=== PATIENT | female | born 1965 | race Caucasian/White ===

== ENCOUNTER 2021-06-21 08:08 | Outpatient (REF) | payer OTHER, SELFPAY ==
--- NOTE | ~2021-06-21 | XR_ITS ---
EXAMINATION: XR CHEST CLINICAL INFORMATION: Bariatric service evaluation. E66.9. COMPARISON: None TECHNIQUE: 2 views of the chest were obtained. FINDINGS: There is a convex opacity at right cardiophrenic angle approximately 3.5 cm in diameter. This may be related to epicardial areolar tissue, pericardial cyst, or a Morgagni hernia. The heart is normal in size. The vascularity is normal. The lungs are clear and there is no airspace consolidation or effusion. The costophrenic sulci are well-defined. There is incidental azygous fissure/lobe right medial apex. The hilar and mediastinal contours and bony structures are unremarkable. XR/XR chest 2V IMPRESSION: 1. Opacity at right cardiophrenic angle 3.5 cm. Differential considerations include epicardial areolar tissue, pericardial cyst, and Morgagni hernia. 2. Otherwise lungs clear.
--- NOTE | 2021-06-21 09:32 | ECG_ITS ---
Test Reason : OBESITY Blood Pressure : / mmHG Vent. Rate : 055 BPM Atrial Rate : 055 BPM P-R Int : 174 ms QRS Dur : 076 ms QT Int : 422 ms P-R-T Axes : 061 024 029 degrees QTc Int : 403 ms Sinus bradycardia Otherwise normal ECG No previous ECGs available Referred By: Sharita Crespo Electronically Signed By:RAIZA BENJAMIN
[2021-06-21 10:23] LABS: MANUAL DIFF FLAG NO
[2021-06-21 10:28] LABS: Basophils Absolute Auto 0.1 X10*3/uL (0.0-0.2); Basophils Percent Auto 0.6 % (0-2); Eosinophils Absolute Auto 0.1 X10*3/uL (0.0-0.4); Eosinophils Percent Auto 0.8 % (0-4); Hematocrit 41.4 % (37-47); Imm Gran Abs Auto 0.05 X10*3/uL (0.00-0.03); Imm Gran Pct Auto 0.6 % (0.0-0.4); Lymphocytes Absolute Auto 1.8 X10*3/uL (1.2-4.9); Lymphocytes Percent Auto 20.2 % (20-40); Mean Corpuscular HGB Conc 33.8 g/dl (31.0-35.0); Mean Corpuscular Hemoglobin 29.9 pg (27.0-33.0); Mean Corpuscular Volume 88.5 fL (80-98); Mean Platelet Volume 10.5 fL (9.4-12.3); Monocytes Absolute Auto 0.7 X10*3/uL (0.1-1.2); Monocytes Percent Auto 7.5 % (2-11); Neutrophils Absolute Auto 6.4 X10*3/uL (2.0-8.3); Neutrophils Percent Auto 70.3 % (45-73); Platelet Count 320 X10*3/uL (160-400); Red Blood Count 4.68 X10*6/uL (4.20-5.50); Red Cell Distribution Width 12.9 % (11.0-16.0); White Blood Count 9.1 X10*3/uL (4.8-10.8)
[2021-06-21 10:40] LABS: Estimated Average Glucose 111 mg/dL; Hemoglobin A1c % 5.5 %
[2021-06-21 10:45] LABS: Alanine Aminotransferase 25 U/L (0-31); Albumin Level 4.3 g/dL (3.5-5.0); Alkaline Phosphatase 93 U/L (39-117); Anion Gap 12 (12-20); Aspartate Amino Transferase 24 U/L (5-31); Bilirubin Total 1.4 mg/dL (0.0-1.0); Blood Urea Nitrogen 11 mg/dL (9-16); C Reactive Protein 0.66 mg/dL (< or = 0.50); Calcium 9.8 mg/dL (8.4-10.2); Carbon Dioxide 24 mmol/L (22-29); Chloride 107 mmol/L (96-108); Cholesterol 167 mg/dL; Estimated Glomerular Filt Rate > 60; Glucose Random 97 mg/dL (60-115); HDL Cholesterol 38 mg/dL; Iron 100 mcg/dL (30-160); LDL Cholesterol Calculated 103 mg/dl; Percent Iron Saturation 31 % (15-50); Potassium 4.2 mmol/L (3.3-5.1); Sodium 139 mmol/L (135-145); Total Iron Binding Capacity 323 mcg/dL (228-428); Total Protein 7.2 g/dL (6.5-8.0); Triglycerides 131 mg/dL; Unsaturated Iron Binding 223 ug/dL
[2021-06-21 10:59] LABS: Ferritin 47 ng/mL (10-250); TSH reflex Free T4 1.17 uIU/mL (0.32-4.0); Vitamin D 25-OH Total 30.4 ng/mL (>30)
[2021-06-21 11:11] LABS: Folate 11.2 ng/mL (> or = 4.0); Vitamin B12 315 pg/mL (200-900)
[2021-06-24 15:47] LABS: Calcium (PTHI) 9.6 mg/dL (8.6-10.4); PTHI 65 pg/mL (14-64)
[2021-06-25 17:21] LABS: Zinc 67 mcg/dL (60-130)
[2021-06-26 16:01] LABS: Vitamin A 38 mcg/dL (38-98)
[2021-06-27 15:01] LABS: Vitamin B1 8 nmol/L (8-30)
== END 2021-06-21 08:09 | disposition home or self-care (01) ==
LOC: HO.XRAY 08:08
PROVIDERS: PCP Nurse Practitioner Family; Referring Provider Nurse Practitioner Family; Visit Provider Physician Assistant
DX: E66.9 Obesity, unspecified (principal); Z68.39 Body mass index [BMI] 39.0-39.9, adult; E78.5 Hyperlipidemia, unspecified; K21.9 Gastro-esophageal reflux disease without esophagitis; I10 Essential (primary) hypertension
CPT/HCPCS: 36415; 71046; 80053; 80061; 82306; 82607; 82728; 82746; 83036; 83525; 83540; 83970; 84425; 84443; 84590; 84630; 85025; 86140; 93005; 99202

== ENCOUNTER → 2021-07-16 08:02 | Outpatient (BNVA) | payer OTHER, SELFPAY | PROVIDERS: PCP Nurse Practitioner Family; Visit Provider Dietitian, Registered | DX: E66.9 Obesity, unspecified (principal); Z68.37 Body mass index [BMI] 37.0-37.9, adult | CPT/HCPCS: 97802 ==

== ENCOUNTER 2021-07-18 08:32 | Outpatient (REF) | payer OTHER, SELFPAY ==
--- NOTE | ~2021-07-18 | US_ITS ---
EXAMINATION: US COMPLETE ABDOMEN WITH LIVER ELASTOGRAPHY CLINICAL INFORMATION: Obesity COMPARISON: None. TECHNIQUE: Real-time imaging of the abdominal viscera. Noninvasive ultrasound liver fibrosis assessment is performed using Ben ElastPQ point quantification shear wave elastography (pSWE) with a C5-2 MHz transducer. Multiple elastography samples are obtained. FINDINGS: PANCREAS: Obscured by overlying bowel gas. ABDOMINAL AORTA: The proximal, middle, and distal aortic segments are normal in caliber. INFERIOR VENA CAVA: Visualized portions are normal. LIVER: There is a heterogeneous increased echogenicity to the liver which may relate to fatty infiltration or hepatocellular disease of other etiology. No focal mass or intrahepatic bile duct dilatation is seen. The right lobe measures 14.3 cm in length. The left lobe measures 9.1 cm in length. Portal flow is hepatopedal Shear wave liver elastography median stiffness is 1.44 m/s (reference: normal median stiffness is 1.3 m/s or less). IQR/median stiffness to assess sampling precision is 0.15 (reference: good quality data set is IQR/median stiffness of 0.15 or less). GALLBLADDER: Normal. The gallbladder is physiologically distended without evidence of stones, sludge, polyps, wall thickening or pericholecystic fluid. COMMON BILE DUCT: Normal in caliber measuring 0.6 cm in diameter. RIGHT KIDNEY: Normal. No hydronephrosis. No renal calculi or focal parenchymal lesions. The kidney measures 10.8 cm in maximum dimension. LEFT KIDNEY: Normal. No hydronephrosis. No renal calculi or focal parenchymal lesions. The kidney measures 11.3 cm in maximum dimension. SPLEEN: Normal. The spleen measures 11.2 cm in maximum dimension. FREE FLUID: None. US/US abdomen comp w elastography IMPRESSION: 1. Heterogeneous increased echogenicity of the liver with diminished sound penetration consistent with fatty infiltration or hepatocellular disease of other etiology. 2. Liver elastography: In the absence of other known clinical signs, measurements rule out compensated advanced chronic liver disease. If there are known clinical signs, further testing may be needed for confirmation. REFERENCE: Society of Radiologists in Ultrasound Liver Stiffness Thresholds (2020): LIVER STIFFNESS THRESHOLDS: *Liver Stiffness equal or less than 1.3 m/s: High probability of being normal. *Liver Stiffness less than 1.7 m/s: In the absence of other known clinical signs, rules out compensated advanced chronic liver disease. *Liver Stiffness 1.7-2.1 m/s: Suggestive of compensated advanced chronic liver disease but need further test for confirmation. *Liver Stiffness over 2.1 m/s: Rules in compensated advanced chronic liver disease. *Liver Stiffness over 2.4 m/s: Suggestive of clinically significant portal hypertension. QUALITY OF DATA SET: *IQR/Median value equal or less than 0.15 implies a quality data set. *IQR/Median value over 0.15 implies a poor quality data set. SIGNIFICANT CHANGE FROM PRIOR EXAM: Significant change if liver stiffness measurement is 10% or greater from prior exam. OTHER CONSIDERATIONS: The stage of liver fibrosis may be overestimated in the setting of acute hepatitis, liver inflammation, elevated liver function tests, hepatic vascular congestion, obstructive cholestasis, non-fasting state, and infiltrative diseases such as amyloidosis and lymphoma. In some patients with NAFLD, the liver stiffness thresholds for compensated advanced chronic liver disease may be lower. In causes other than viral hepatitis and NAFLD, liver stiffness thresholds are not well established.
--- NOTE | ~2021-07-18 | FL_ITS ---
EXAMINATION: XR GI SERIES CLINICAL INFORMATION: Obesity. COMPARISON: None. TECHNIQUE: Routine upper GI air-contrast study was performed in upright and lying position. FINDINGS: Following oral administration of thick barium and effervescent granules, there is normal propagation of bolus from the oral cavity through the pharynx and esophagus and into the stomach without any evidence of obstruction, narrowing or stricture. On placing patient supine and prone lying, the course, caliber and peristalsis of stomach are normal. There is mild gastroesophageal reflux but no hiatal hernia. The mucosal pattern of the stomach and the duodenum is normal. FLUOROSCOPY TIME: 1.4 minutes. DOSE AREA PRODUCT: 33.471 uGy-m2 (microgray-meter squared). FL/FL upper GI series IMPRESSION: Minimal gastroesophageal reflux without hiatal hernia. Otherwise, the rest of the upper GI air-contrast study is unremarkable.
== END 2021-07-18 08:33 | disposition home or self-care (01) ==
LOC: HO.US 08:32
PROVIDERS: Visit Provider Surgery
DX: Z01.818 Encounter for other preprocedural examination (principal); E66.01 Morbid (severe) obesity due to excess calories; K21.9 Gastro-esophageal reflux disease without esophagitis; I10 Essential (primary) hypertension; E78.5 Hyperlipidemia, unspecified
CPT/HCPCS: 74240; 76705; 76981

== ENCOUNTER 2021-07-22 11:13 | Outpatient (REF) | payer OTHER, SELFPAY ==
[2021-07-22 12:21] LABS: Anion Gap 14 (12-20); Blood Urea Nitrogen 14 mg/dL (9-16); Calcium 9.8 mg/dL (8.4-10.2); Carbon Dioxide 25 mmol/L (22-29); Chloride 104 mmol/L (96-108); Estimated Glomerular Filt Rate 56; Glucose Random 91 mg/dL (60-115); Potassium 4.3 mmol/L (3.3-5.1); Sodium 139 mmol/L (135-145)
== END 2021-07-22 11:14 | disposition home or self-care (01) ==
LOC: HO.LAB 11:13
PROVIDERS: PCP Nurse Practitioner Family; Visit Provider Physician Assistant
DX: J98.4 Other disorders of lung (principal)
CPT/HCPCS: 36415; 80048

== ENCOUNTER 2021-07-30 09:42 | Outpatient (REF) | payer OTHER, SELFPAY ==
--- NOTE | ~2021-07-30 | CT_ITS ---
EXAMINATION: CT CHEST WITH CONTRAST CLINICAL INFORMATION: The disorders of lung. COMPARISON: Chest x-ray 06/21/2021. TECHNIQUE: Multidetector volumetric CT imaging of the chest was obtained after the administration of 85 mL of Omnipaque 350 intravenous contrast without immediate adverse reactions. Axial MIP volume rendering provided. Sagittal and coronal reformatted images were obtained. This CT examination was performed using dose optimization techniques as appropriate, variously including the following: *Automated exposure control *Adjustment of mA and/or kV according to patient size (this includes techniques or standardized protocols for targeted exams where dose is matched to indication/reason for exam; i.e. extremities or head) *Use of iterative reconstruction technique DLP: 164 mGy-cm. FINDINGS: CRUSHER AND BINDER OPERATOR: The lungs are well expanded and clear. LUNGS: The lungs are well expanded and clear of acute pneumonic process. There is a 2 mm calcified nodule right upper lobe, axial image 87/4. No additional nodules visualized. Minimal dependent bibasilar atelectasis. MEDIASTINUM: The thyroid lobes are symmetrical and normal. The central trachea and the bronchi are widely patent. Heart size and the great vessels are normal caliber. There is no pericardial effusion. No abnormal-sized mediastinal mass or lymphadenopathy seen. There is moderate right epicardial fat. PLEURA: There is no pleural effusion. No pleural mass or thickening. AXILLA: Small shotty lymph nodes are seen in the axilla. The chest wall appears unremarkable. UPPER ABDOMEN: The liver is diffusely attenuated with preservation of left hepatic lobe. No focal lesion or intrahepatic ductal dilatation. Visualized spleen, pancreas and gallbladder are unremarkable. Bilateral adrenal glands are symmetrical and normal. OSSEOUS STRUCTURES: No lytic or sclerotic process seen. CT/CT chest w con IMPRESSION: A 2 mm calcified nodule or granuloma right upper lobe. The rest of lungs are clear. No abnormal mediastinal mass or lymphadenopathy. Moderate right epicardial fat concordant with chest x-ray findings from 06/21/2021.
[2021-07-30] MEDS: iohexoL 350 MG/ML 100 ML INFUS..BTL 85 ML IV (10:50)
== END 2021-07-30 09:43 | disposition home or self-care (01) ==
LOC: HO.CT 09:42
PROVIDERS: PCP Nurse Practitioner Family; Visit Provider Physician Assistant
DX: J98.4 Other disorders of lung (principal)
CPT/HCPCS: 71260; Q9967

== ENCOUNTER 2021-08-01 09:40 | Outpatient (REF) | payer OTHER, SELFPAY ==
[2021-08-02 13:27] LABS: H Pylori Breath Test NOT DETECTED (NOT DETECTED)
== END 2021-08-01 09:41 | disposition home or self-care (01) ==
LOC: HO.LNP 09:40
PROVIDERS: PCP Nurse Practitioner Family; Visit Provider Physician Assistant
DX: E66.9 Obesity, unspecified (principal); E78.5 Hyperlipidemia, unspecified; I10 Essential (primary) hypertension; K21.9 Gastro-esophageal reflux disease without esophagitis; Z11.0 Encounter for screening for intestinal infectious diseases
CPT/HCPCS: 83013; 99211

== ENCOUNTER 2021-08-06 10:41 | Outpatient (REF) | payer OTHER, SELFPAY ==
[2021-08-06 11:51] LABS: MANUAL DIFF FLAG NO
[2021-08-06 12:01] LABS: Estimated Average Glucose 105 mg/dL; Hemoglobin A1c % 5.3 %
[2021-08-06 12:03] LABS: Basophils Percent Auto 0.5 % (0-2); Eosinophils Percent Auto 0.6 % (0-4); Hematocrit 43.1 % (37-47); Hemoglobin 14.6 g/dl (12.0-16.0); Imm Gran Abs Auto 0.01 X10*3/uL (0.00-0.03); Imm Gran Pct Auto 0.2 % (0.0-0.4); Lymphocytes Absolute Auto 1.9 X10*3/uL (1.2-4.9); Lymphocytes Percent Auto 29.1 % (20-40); Mean Corpuscular HGB Conc 33.9 g/dl (31.0-35.0); Mean Corpuscular Hemoglobin 29.9 pg (27.0-33.0); Mean Corpuscular Volume 88.1 fL (80-98); Monocytes Absolute Auto 0.6 X10*3/uL (0.1-1.2); Monocytes Percent Auto 8.5 % (2-11); Neutrophils Percent Auto 61.1 % (45-73); Platelet Count 262 X10*3/uL (160-400); Red Blood Count 4.89 X10*6/uL (4.20-5.50); White Blood Count 6.5 X10*3/uL (4.8-10.8)
[2021-08-06 12:07] LABS: Prothrombin Time 11.5 SEC (9.9-13.0)
[2021-08-06 12:10] LABS: Partial Thromboplastin Time 36.6 SEC (24.1-38.0)
[2021-08-06 12:14] LABS: Alanine Aminotransferase 26 U/L (0-31); Albumin Level 4.4 g/dL (3.5-5.0); Alkaline Phosphatase 73 U/L (39-117); Anion Gap 15 (12-20); Aspartate Amino Transferase 29 U/L (5-31); Blood Urea Nitrogen 12 mg/dL (9-16); C Reactive Protein 0.62 mg/dL (< or = 0.50); Calcium 9.9 mg/dL (8.4-10.2); Carbon Dioxide 23 mmol/L (22-29); Chloride 107 mmol/L (96-108); Cholesterol 140 mg/dL; Estimated Glomerular Filt Rate > 60; Glucose Random 90 mg/dL (60-115); HDL Cholesterol 43 mg/dL; Iron 61 mcg/dL (30-160); LDL Cholesterol Calculated 85 mg/dl; Percent Iron Saturation 19 % (15-50); Potassium 4.7 mmol/L (3.3-5.1); Sodium 140 mmol/L (135-145); Total Iron Binding Capacity 313 mcg/dL (228-428); Total Protein 7.2 g/dL (6.5-8.0); Triglycerides 60 mg/dL; Unsaturated Iron Binding 252 ug/dL
[2021-08-06 12:37] LABS: Vitamin B12 472 pg/mL (200-900)
[2021-08-06 12:38] LABS: Ferritin 68 ng/mL (10-250); TSH reflex Free T4 1.96 uIU/mL (0.32-4.0); Vitamin D 25-OH Total 34.4 ng/mL (>30)
[2021-08-07 18:22] LABS: Calcium (PTHI) 9.8 mg/dL (8.6-10.4); Insulin Level Total 4.2 uIU/mL; PTHI 60 pg/mL (14-64)
[2021-08-09 06:21] LABS: Zinc 80 mcg/dL (60-130)
[2021-08-11 00:42] LABS: Vitamin A 34 mcg/dL (38-98)
[2021-08-11 10:31] LABS: Vitamin B1 <6 nmol/L (8-30)
== END 2021-08-06 10:42 | disposition home or self-care (01) ==
LOC: HO.LAB 10:41
PROVIDERS: Visit Provider Physician Assistant Surgical
DX: E66.9 Obesity, unspecified (principal)
CPT/HCPCS: 36415; 80053; 80061; 82306; 82607; 82728; 83036; 83525; 83540; 83970; 84425; 84443; 84590; 84630; 85025; 85610; 85730; 86140; 86850; 86900; 86901

== ENCOUNTER → 2021-08-09 08:14 | Outpatient (BNVA) | payer OTHER, SELFPAY | PROVIDERS: PCP Nurse Practitioner Family; Visit Provider Surgery ==

== ENCOUNTER 2021-08-13 07:30 | Inpatient (IN) | payer OTHER, SELFPAY ==
[2021-08-08 10:40] VITALS: BMI 36.3
--- NOTE | 2021-08-12 09:46 | HO.ANESPROP2 ---
Documented by User: Chrissy Hannon NP 08/12/21 09:50 HPI - Anesthesia Eval Consult details Narrative: 56yo F for Gastrectomy Sleeve, EGD, Poss Diaphragmatic Hernia, Poss Ventral Hernia, Poss open PMFSH Active Problems Active Problems: All Active Problems (Updated 08/09/21 @ 13:51 by Saleem Farah MD) Nausea (Acute) BMI over 35 (Acute) Obesity (Acute) Hypertension (Acute) Hyperlipidemia (Acute) GERD (gastroesophageal reflux disease) (Acute) Lung density on x-ray (Acute) Adjustment disorder, unspecified (Acute) Pericardial cyst along right cardiophrenic angle (Acute) Past Medical History Medical History Adjustment disorder, unspecified GERD (gastroesophageal reflux disease) Hyperlipidemia Hypertension Obesity Pericardial cyst along right cardiophrenic angle Pulmonary nodule Family History Family History Mother Afib Father No problems noted. Brother No problems noted. Brother No problems noted. Brother No problems noted. Son No problems noted. Daughter No problems noted. 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 If so, by whom?: No Are you DNR?: No Advance Directives: No Advance Directives Information Provided: No Advance Directives on File: No Recently lost weight without trying: No Patient : No FDLMP: 08/07/2021 : No Poor oral hygiene: No Meds Allergies Allergy/AdvReac Type Severity Reaction Status Date / Time No Known Allergies Allergy Verified 08/09/21 13:38 Home Medications Medication Instructions Recorded Confirmed Last Taken Type estradiol 0.05 mg/24 hr semiweekly 1 patch TRANSDERMAL 2XW 06/21/21 08/09/21 Unknown History transdermal patch losartan 25 mg tablet 25 mg PO DAILY 06/21/21 08/09/21 Unknown History omeprazole 40 mg capsule,delayed 40 mg PO DAILY PRN 06/21/21 08/09/21 Unknown History release pravastatin 20 mg tablet 20 mg PO DAILY 06/21/21 08/09/21 Unknown History progesterone micronized 100 mg 100 mg PO BEDTIME 06/21/21 08/09/21 Unknown History capsule Exam Exam Date and Time: August 12, 2021 0946 Height,Weight and Vital Signs: Height 5 ft 4 in Weight 96.162 kg Pertinent Lab Results Pertinent Lab Results: Laboratory Tests 08/06/21 11:00 Blood Type B Positive Antibody Screen NEGATIVE Laboratory Tests 08/06/21 08/06/21 11:00 11:00 WBC 6.5 Hgb 14.6 Hct 43.1 Plt Count 262 Sodium 140 Potassium 4.7 Chloride 107 Carbon Dioxide 23 BUN 12 Creatinine 0.95 Narrative Narrative: EKG 05/2021 Vent. Rate : 055 BPM ? ? Atrial Rate : 055 BPM ?? P-R Int : 174 ms? QRS Dur : 076 ms ? ? QT Int : 422 ms ? ? ? P-R-T Axes : 061 024 029 degrees ?? QTc Int : 403 ms ? Sinus bradycardia Otherwise normal ECG No previous ECGs available CT chest w con 07/2021 IMPRESSION: A 2 mm calcified nodule or granuloma right upper lobe. The rest of lungs are clear. ? No abnormal mediastinal mass or lymphadenopathy. ? Moderate right epicardial fat concordant with chest x-ray findings from 06/21/2021. Assessment and Plan Assessment Anesthesia Assessment: Chart Reviewed Documented by User: Mar Spencer MD 08/13/21 10:02 [facility] Past Medical History Medical History Adjustment disorder, unspecified GERD (gastroesophageal reflux disease) Hyperlipidemia Hypertension Obesity Pericardial cyst along right cardiophrenic angle Pulmonary nodule Family History Family History Mother Afib Father No problems noted. Brother No problems noted. Brother No problems noted. Brother No problems noted. Son No problems noted. Daughter No problems noted. 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 If so, by whom?: No Are you DNR?: No Advance Directives: No Advance Directives Information Provided: No Advance Directives on File: No Recently lost weight without trying: No Patient : No FDLMP: 08/07/2021 : No Poor oral hygiene: No Meds Allergies Allergy/AdvReac Type Severity Reaction Status Date / Time No Known Allergies Allergy Verified 08/09/21 13:38 Home Medications Medication Instructions Recorded Confirmed Last Taken Type estradiol 0.05 mg/24 hr semiweekly 1 patch TRANSDERMAL 2XW 06/21/21 08/09/21 Unknown History transdermal patch losartan 25 mg tablet 25 mg PO DAILY 06/21/21 08/09/21 Unknown History omeprazole 40 mg capsule,delayed 40 mg PO DAILY PRN 06/21/21 08/09/21 Unknown History release pravastatin 20 mg tablet 20 mg PO DAILY 06/21/21 08/09/21 Unknown History progesterone micronized 100 mg 100 mg PO BEDTIME 06/21/21 08/09/21 Unknown History capsule Exam Height,Weight and Vital Signs: Height 5 ft 4 in Weight 96.162 kg Vital Signs Temp Pulse Resp BP Pulse Ox 08/13/21 08:39 97.5 F 60 16 139/67 98 Pertinent Lab Results Pertinent Lab Results: Laboratory Tests 08/06/21 11:00 Blood Type B Positive Antibody Screen NEGATIVE Laboratory Tests 08/06/21 08/06/21 11:00 11:00 WBC 6.5 Hgb 14.6 Hct 43.1 Plt Count 262 Sodium 140 Potassium 4.7 Chloride 107 Carbon Dioxide 23 BUN 12 Creatinine 0.95 Lab Results 08/06/21 08/13/21 Range/Units 11:00 08:29 COVID-19 ([facility]) Negative (Negative) COVID-19 Clin Com See Note Blood Type B Positive Antibody Screen NEGATIVE Airway Mallampati Class: II TM Dist: >3cm Neck ROM: Full Loose/Missing/Broken Teeth: No Heart: RRR Lungs: CTAB Assessment and Plan Assessment Anesthesia Assessment: Anesthesia Plan Discussed Final Anesthetic Review Family History of Problems with Anesthesia: No History of Problems with Anesthesia: No NPO: Yes ASA Class: III Final Preanesthetic Review: No Changes in Pt Med Stat, Meds/Allgs Chart Reviewed, Consent Obtained/Reviewed and Anes Risks/Benef Reviewed Patient Risk: Intermediate Procedure Risk: Intermediate Assessment/Block/Sedation in SS: Assess/Block/Sedation-SS Anesthetic Plan Anesthetic Plan: GA Disposition: Standard PACU
[2021-08-13] VITALS (9 sets, daily range): BP systolic 127–151; BP diastolic 67–84; PULSE 51–74; RESP 14–17; TEMP 36.1–36.4; O2SAT 94–99
--- NOTE | ~2021-08-13 | XR_ITS ---
EXAMINATION: XR CHEST CLINICAL INFORMATION: Decreased breath sounds on the left COMPARISON: None TECHNIQUE: Frontal view of the chest was obtained. FINDINGS: The lungs are well-expanded with patchy opacity left lingula likely infiltrate. Rest of lungs are clear. The heart size and pulmonary vascularity is normal. No gross bony abnormality. XR/XR chest 1V IMPRESSION: Left lingular infiltrate.
--- NOTE | 2021-08-13 07:29 | P.HPSUR_ITS ---
Pre-Procedural Eval Section A Date of Service: 08/13/21 The patient is an INPATIENT: Yes The History & Physical has been completed within 30 days and I have reviewed it.: No Section B Chief Complaint: obesity Relevant Family History (Specify if Yes): No Relevant Social History: None Present Medications: see Short Stay Collaborative assessment Medical History: No relevant PMH History of Previous Operations: No relevant previous surgery Allergies: Allergies Allergy/AdvReac Type Severity Reaction Status Date / Time No Known Allergies Allergy Verified 08/09/21 13:38 Review of Systems Sugical H&P ROS: Negative: Constitution, Cardiovascular, Respiratory, Neurological, Psychiatric, Hem-Onc, Allergic/Immunologic, Gastrointestinal, Genitourinary, Musculoskeletal, Integumentary, Endocrine and Eyes/Ears/Nose/Thr oat Exam Surgical H&P Exam: Normal: HEENT, Normal: Heart, Normal: Lungs, Normal: Extremities, Normal: Abdomen, Normal: Skin and Normal: Neurological Plan Diagnosis/Plan: Unchanged I have reviewed the history and physical and performed a pertinent physical examination on my patient. No changes have occurred unless specified.
[2021-08-13 09:01] LABS: COVID-19 Test Negative (Negative); IDNOW Serial# 08D9AD1C
[2021-08-13] MEDS: Lactated Ringers 1,000 ML 100 ML IVCONT ×3 (09:04→22:59)
[2021-08-13] MEDS: Lactated Ringers 1,000 ML 999 ML IV (09:04)
--- NOTE | 2021-08-13 13:16 | PM.OP ---
Brief Operative Note Date of Service: 08/13/21 Pre-op diagnosis: Severe obesity and comorbidities (see below) Post-op diagnosis: same (& diaphragmatic hernia) Procedure: INITIAL PATIENT BMI ON PRESENTATION AT OUR OFFICE: 39.7 kg/m2 LAST BMI BEFORE SURGERY: 35.3 kg/m2 COMORBIDITIES: GERD, hypertension, hyperlipidemia, liver steatosis The patient participated in an intensive weekly lifestyle ?intervention and exercise program during which the patient ?has lost between the initial office visit and the last preoperative visit 25.4 lbs, or 10.7% of initial actual body weight. The patient met the BMI-criteria for bariatric surgery based on the BMI on initial presentation. The patient should not be penalized for achieving such weight loss because ?it is not sustainable long-term without surgical intervention and it was achieved in preparation for bariatric surgery ?under my direction and based on my published research ([email or web address]) ?that a 10% preoperative weight loss improves long-term weight loss after surgery and reduces perioperative complications.? Insurance carriers such as [facility] have endorsed my recommendations ?and have included in their policies criteria to include a 10% preoperative weight loss requirement. PROCEDURE: Esophago-gastroscopy, laparoscopic repair of incarcerated diaphragmatic hernia, laparoscopic sleeve gastrectomy and laparoscopic gastropexy INDICATIONS: This is a 56 year-old female who was electively scheduled for laparoscopic, possibly open sleeve gastrectomy. The risks and complications of the procedure were discussed with the patient in advance, particularly the possibility of ; pulmonary embolism; staple line leak; bleeding; GERD; cardiac, pulmonary, or renal complications; as well as long-term problems such as insufficient weight loss, vitamin deficiency, strictures, or ulcers. The patient understood all the risks, and was in agreement to proceed with surgery. DESCRIPTION OF PROCEDURE: After informed consent was obtained from the patient, the patient was given preoperative antibiotics, and was transferred to the operating room. After successful induction of general anesthesia, pneumatic compressive devices were placed on both lower extremities. An upper endoscopy was performed next. The oropharynx and esophagus appeared to be within normal limits. There was a diaphragmatic hernia present of moderate size consistent with the findings of the preoperative upper GI. The stomach was entered. Then after all fluid and air were suctioned and the stomach was fully decompressed, the scope was withdrawn and secured in the mid esophagus. The patient was then prepped and draped in the usual sterile manner, and abdominal access was established at the right upper quadrant with the Karely technique. A 12 mm blunt port was inserted, and the abdomen was insufflated with CO2 to a pressure of 15 mmHg. Under direct visualization, additional ports were placed, specifically two 5 mm Versi-step ports to the left upper quadrant, and a 5 mm Versi-Step port to the right upper quadrant. 1% lidocaine plain was used to infiltrate all port sites as well as all fascia defects. Using the EndoClose suture passer device, I placed a #1 Polysorb tie across the falciform ligament in order to retract it up against the abdominal wall and prevent injury of the ligament with our instruments during the procedure. Following that, the patient was placed in a steep reverse Trendelenburg position. An additional 5 mm port was placed to the right flank for the Mediflex retractor that was used to retract the left lobe of the liver. The gastro-esophageal fat pad was opened with the ultrasonic device (Thunderbeat, Olympus) and the anterior esophagus and hiatus were exposed. The angle of His was opened with the ultrasonic device the fundus of the stomach from any diaphragmatic and splenic attachments. I then opened the gastrocolic ligament between the transverse colon and the greater curvature of the stomach with the ultrasonic device to enter the lesser sac and facilitate the ligation of the short gastric vessels. I started at a mid-point along the greater curvature and using the Thunderbeat, all short gastric vessels were divided all the way to the angle of His until the left maritza was completely dissected at its entirety. I then divided the gastro-colic ligament distally to a distance of about 3-4 cm proximal to the esophagus. There was an obvious significant-sized hiatal hernia. I continued dissecting along the hiatus toward the left maritza and the angle of His. I fully mobilized the fat pad that was incarcerated in the hernia. I then continued by dissecting even further into the posterior retro-esophageal space all the way to the angle of His. I continued to mobilize the esophagus into the mediastinum circumferentially. Both vagal nerves were seen and preserved. At that point, I was able to have at least 3 to 5 cm of esophagus into the abdomen.? After I completely mobilized the esophagus from both the left and right maritza and I had a good mobilization of the esophagus circumferentially, I closed the hernia defect with three interrupted #0 Surgidac suture using the Endo Stitch device, two of which were placed posterior and one anterior to the esophagus. ? The stomach was then divided transversely with one Endo GILBERT-45 purple, one GILBERT-45 orange load and four GILBERT-60 articulating orange loads using the AEON stapler and loads. Every effort was made that the gastric sleeve had a tubular shape and an even caliber throughout. Once the sleeve resection was completed, the staple line of the gastric sleeve was reinforced with Hemoclips. The resected stomach was retrieved without difficulty from the Karely port. A gastropexy was then performed in order to prevent postoperative GERD and partial gastric volvulus. Several interrupted 2.0 Surgidac sutures were placed between the sleeve's staple line and the previously divided greater omentum and gastro-colic ligament using the Endo-Stitch device. ?An upper endoscopy was performed. There was no narrowing at the GE junction. The scope was easily advanced all the way to the pylorus which was clearly visualized. There was no narrowing anywhere and the sleeve's caliber was even throughout. The sleeve's staple line was inspected and there was no evidence of ischemia, bleeding or dehiscence. At that point the gastroscope was withdrawn from the patient?s mouth while we were decompressing the bowel and the stomach from any remaining air. I looked into the lesser sac to see how the sleeve was situating and it was situating well. There was no bleeding from the staple line, spleen, or short gastric vessels. The Mediflex retractor was removed, and the undersurface of the liver was inspected and there was no bleeding. The patient was placed in supine position. I closed the fascial defect of the 12 mm port site with a figure of eight #1 Polysorb suture. Then 100 cc 0.25 % Marcaine plain with 10 mg of Dexamethasone were used to infiltrate the fascial closure as well as all skin incisions. At this point, the abdomen was deflated, all ports were removed under direct vision, and no bleeding was noted from any of the port sites. The skin incisions were irrigated with saline and were closed with 4-0 absorbable monofilament sutures. Steri-Strips and OpSites were used to cover all incisions. The patient was extubated and was transferred in stable condition to the recovery room for further care. I was present and performed all silva parts of the procedure. Ms. Crespo was the cutting table operator first. There were no residents to assist with this case. Presley Farah MD, PhD, FACS Surgeon: Saleem Farah MD Anesthesia: GETA, local and other (TAP block) Was an Retail Assistant Store Manager used for this Procedure?: Yes Retail Assistant Store Manager: Beau Penn Estimated blood loss (mL): 10 IV fluids (mL): 2,000 Urine output (mL): 0 (No Romo to record) Pathology: other (Stomach) Condition: stable Disposition: PACU
--- NOTE | 2021-08-13 13:21 | PM.PNGS ---
Subjective Subjective Date of Service: 08/13/21 Interval history: Patient has mild incisional pain, but was able to ambulate and use the incentive spirometer. She is tolerating phase 1 bariatric diet Physical Exam Vital Signs: Vital Signs: Last Vital Signs Temp 97.5 F 08/13/21 13:13 Pulse 74 08/13/21 13:13 Resp 16 08/13/21 13:13 BP 138/74 08/13/21 13:13 Pulse Ox 98 08/13/21 08:39 Body Mass Index 36.3 GI: Inspection: Yes normal to inspection and Yes incision (clean, dry and intact) Extrem: Right lower extremity: normal to inspection (no calf tenderness) Left lower extremity: normal to inspection (no calf tenderness) Progress Note: A&P Assessment and plan (1) S/P laparoscopic sleeve gastrectomy: Status: Acute Assessment and Plan: s/p laparoscopic sleeve gastrectomy, repair of diaphragmatic hernia, and gastropexy Doing well Check am labs. If OK, will discharge home? (2) Paraesophageal hiatal hernia: Status: Acute (3) History of repair of hiatal hernia: Status: Acute (4) Obesity: Status: Acute (5) BMI over 35: Status: Acute (6) GERD (gastroesophageal reflux disease): Status: Acute (7) Steatosis, liver: Status: Acute (8) Hyperlipidemia: Status: Acute (9) Hypertension: Status: Acute Fall Risk Details Current Medications: Current Medications Fentanyl (Fentanyl Citrate/Pf 100 Mcg/2 Ml Vial) 25 mcg IVPUSH Q5M PRN; Protocol PRN Reason: Pain, Moderate (Pain Scale 4-6 Hydromorphone HCl (Hydromorphone Hcl 0.5 Mg/0.5 Ml Syringe) 0.25 mg IVPUSH Q5M PRN; Protocol PRN Reason: Pain, Severe (Pain Scale 7-10) Lactated Ringer's (Lr) 1,000 mls @ 100 mls/hr IVCONT .Q10H [facility] Last Admin: 08/13/21 09:04 Dose: 100 mls/hr Documented by: Promethazine HCl 6.25 mg/ (Sodium Chloride) 50.25 mls @ 201 mls/hr IV ONCE PRN PRN Reason: Nausea and Vomiting Ondansetron HCl (Ondansetron Hcl 4 Mg/2 Ml Vial) 4 mg IVPUSH ONCE PRN PRN Reason: Nausea and Vomiting Time Spent With Patient Time: Total time spent is greater than 50% in coordination of care (as documented) at patient's floor/unit and/or counseling patient: Quality Stroke Does the patient have a stroke diagnosis?: No VTE Prior VTE?: No VTE Risk Level:: Surgical - moderate VTE Device Contraindication: N/A - Device Ordered VTE Drug Contraindication: Treatment Not Indicated
--- NOTE | 2021-08-13 13:24 | PM.DS ---
DS: Providers Provider Date of Service: 08/14/21 Date of admission: 08/13/21 07:30 Primary care physician: Unknown Physician DS: Summary Hospital Course Hospital Course: ADMITTING DIAGNOSIS: morbid obesity, htn, hyperlipidemia, GERD ? DISCHARGE DIAGNOSIS: same, s/p laparoscopic sleeve gastrectomy and repair diaphragmatic hernia ? PAST SURGICAL HISTORY: None ? PROCEDURE: upper endoscopy, laparoscopic sleeve gastrectomy and repair of diaphragmatic hernia hernia ? DISCHARGE SUMMARY: ? History of Present Illness: ? The patient is a?56 year-old woman with a BMI of?39.7 kg/m2 and associated co-morbidities as described above. The patient had extensive work-up,lost?25.4 lbs preoperatively and was electively scheduled for laparoscopic, possible open sleeve gastrectomy and gastropexy. Risks and complications of the surgery were discussed with the patient in advance, particularly the possibility of , pulmonary embolism, anastomotic leak, bleeding, bowel injury, GERD, cardiac, renal or pulmonary complications. The patient understood all the risks and was in agreement with the surgical plan. ? Hospital Course: ? The patient underwent an uneventful laparoscopic sleeve gastrectomy with gastropexy and repair of diaphragmatic hernia on the day of admission. Postoperatively, the patient was transferred to the surgical floor. The patient received IV Acetaminophen and IV dilaudid for pain control. Patient was started on bariatric phase 1 diet POD #0. On postoperative day one, the patient was feeling well without nausea, vomiting, fevers, or tachycardia. The patient had some mild incisional pain and the abdomen was soft. ? On the morning of postoperative day one, the patient was continued on 1 ounce of water or ice every half hour. During the day, the patient did fairly well, having some incisional pain, but able to ambulate adequately and to tolerate liquids well. ? Since the patient is doing well, we decided that the patient was ready to be discharged. The patient was given instructions to follow-up with me next week and to call my office for any fever over 101, persistent abdominal pain, nausea, vomiting, GERD, symptoms of DVT such as calf tenderness, or leg swelling, or pulmonary embolism such as chest pain or shortness of breath. The patient was also instructed to drink 40-60 ounces of liquids per day using the 1-ounce cups. The patient had been given prescriptions for Tylenol for pain, Zofran prn for nausea, and pantoprazole and carafate previously. The patient was encouraged to ambulate and use the incentive spirometer. The patient was allowed to shower, but no baths, and encouraged to stay active at home. All of these instructions were given to the patient personally. All questions were answered and the patient understood all instructions, the instructions were also given to the patient in print. Status at Discharge Functional status at discharge: independent ambulation Time Spent with Patient Time attestation: Total time spent providing and/or coordinating discharge services: Discharge coordination time: Less than 30 minutes Quality: Stroke Does the patient have a stroke diagnosis?: No Reason for No Anti-thrombotic by Day Two: Not indicated Reason for No Statin at DC: N/A - Med Ordered Physical Exam Vital Signs: Vital Signs: Last Vital Signs Temp 97.5 F 08/13/21 13:13 Pulse 67 08/13/21 13:18 Resp 17 08/13/21 13:18 BP 138/78 08/13/21 13:18 Pulse Ox 98 08/13/21 13:18 Body Mass Index 36.3 DS: Data Data Completed and Pending Pending studies at discharge: Pending at discharge 08/13/21 12:37 Surgical [PTH] Routine Labs on day of discharge: Laboratory Results - last 24 hr 08/13/21 08:29 COVID-19 ([facility]) Negative COVID-19 Clin Com See Note Discharge Plan Discharge Anticipated Discharge Date/Time: 08/14/21 10:16 Patient Disposition: Home, Self-Care Discharge Diagnosis: s/p sleeve gastrectomy with hiatal hernia repair Referrals: Physician,Unknown [Primary Care Provider] - 1 Week Discharge Medications: Continued losartan 25 mg tablet 25 mg PO DAILY RF: 0 pravastatin 20 mg tablet 20 mg PO DAILY RF: 0 pantoprazole 40 mg tablet,delayed release (DR/EC) 40 mg PO DAILY Qty: 30 RF: 2 sucralfate 100 mg/mL suspension 10 ml PO BID Qty: 400 RF: 2 ondansetron HCl [Zofran] 4 mg tablet 4 mg PO Q12H Qty: 20 RF: 0 Held progesterone micronized 100 mg capsule 100 mg PO BEDTIME RF: 0 Hold Instructions: discuss with Dr Farah prior to restarting estradiol 0.05 mg/24 hr patch semiweekly 1 patch transdermal 2XW RF: 0 Hold Instructions: dicuss with Dr Farah prior to restarting Discontinued omeprazole 40 mg capsule,delayed release(DR/EC) 40 mg PO DAILY PRN (Reason: Gastric Reflux) RF: 0 polyethylene glycol 3350 [Miralax] 17 gram powder in packet 17 g PO DAILY Qty: 14 RF: 0 Discharge Orders: Discharge Order (Routine); Ordered 08/14/21 Ordered By: Beau Penn Diet: other Activity on Discharge: No heavy lifting Stand Alone Forms: Patient Portal Discharge page Care Plan Goals: weight loss Health Concerns: obesity Plan of Treatment: No tub baths, sex or returning to work until discussed at first post op appointment. No exercise, alcohol, tobacco or illegal drug use. Continue to use incentive spirometer hourly while awake. Walk in home for 5- 10 minutes every 2 hours during the first week. Continue phase 3 diet until first post op appointment. Follow all instructions in the bariatric handbook and call with any questions.Discharge Instructions 1. Please call your doctor or come back to the emergency room should any new symptoms arise. 2. You will receive a courtesy call from [facility] 24-48 hours after discharge. 3. Activity: abstain from alcohol, practice limited stair climbing, no bending, no driving, no exercise, no illicit substances, no lifting, no sex, no tub bath, no work. 4. Diet: continue as discussed with Dr. Farah. 5. Dressing Change/Wound Care: Your incision is covered by surgical glue. If the area is tender, you may apply an ice pack for short intervals (no more than 20 minutes on, followed by at least 20 minutes off). Do not apply heat. Do not use creams, lotions, or topical antibiotics unless instructed to do so by your surgeon. These can cause infection or allergic reaction. 6. Call your doctor if: - Your temperature exceeds 101.5 F - You experience excessive pain or swelling - You have an unexpected reaction to medication - You have excessive bleeding - You experience continued vomiting/nausea - Your incision begins to separate - Your incision shows signs of infection such as increased redness, swelling, excessive pain, heat, or drainage (light blood or clear fluid is normal) 7. General instructions: No lifting greater than 5 lbs for the next 4 weeks. No driving within 24 hours of taking narcotic pain medications. If you do not move your bowels in the next 2 days, please take milk of magnesia over the counter. Please follow the post op diet and do not advance your diet until you are seen in the office in about 2 weeks. Please walk around your home every hour or two to prevent blood clots from forming in your legs. You do not need to wake from sleeping to walk. Please sleep in a bed or couch to prevent kinking at the hips and knees. Please take your incentive spirometer (your lung boiler shop supervisor) home with you and use it for the next few days to prevent pneumonias. You may shower, no hot tubs, baths or swimming pools. Please call the office with any questions or concerns such as increasing abdominal pain, fever, chills, shortness of breath, chest pain, leg pain or swelling, or redness or drainage from your incisions. Please stay on stage 3 diet which includes sugar free clear liquids such as ice pops and jello and broth and crystal light. Avoid all carbonation. Please drink 3 protein shakes with at least 25-30 grams of protein daily or 3 of the Celebrate 4:1 shakes which can be purchased in our office. The Celebrate shakes have all of the bariatric vitamins you need if you consume these shakes. If you are drinking other protein shakes, you will need to purchase the Celebrate multivitamins and calcium that we provide in the office (they will provide all the vitamins you need). Please make sure you are consuming at least 40-60 ounces of water in addition to your 3 protein shakes daily. Do not hesitate to contact the office with any questions at . The patient's medical history has been reviewed and they are considered low risk for post op DVT and therefore DVT prophylaxis is not considered necessary. Travel after surgery was reviewed. The patient has not disclosed any travel plans during the first 30 days after surgery and they have been advised that within the first 30 days after surgery any bus, plane, train or car travel over 2 hours in duration is contraindicated due to the possibility of developing blood clots from immobility. Any travel, needs to include periods of ambulation of 10 minutes in duration every 2 hours.? The patient was instructed to discuss any plans for travel during this period with their bariatric surgeon. Assessment: stable s/p sleeve gastrectomy with hiatal hernia repair
[2021-08-13] MEDS: Famotidine/PF 20 MG/2 ML VIAL IVPUSH ×2 (13:50→20:36)
[2021-08-13 14:48] LABS: Hematocrit 41.8 % (37-47); Hemoglobin 14.2 g/dl (12.0-16.0)
[2021-08-13 15:00] LABS: Anion Gap 19 (12-20); Blood Urea Nitrogen 8 mg/dL (9-16); Calcium 8.6 mg/dL (8.4-10.2); Carbon Dioxide 17 mmol/L (22-29); Chloride 106 mmol/L (96-108); Creatinine Clr Calc Pharmacy 90.4; Estimated Glomerular Filt Rate > 60; Glucose Random 136 mg/dL (60-115); Potassium 4.1 mmol/L (3.3-5.1); Sodium 138 mmol/L (135-145)
[2021-08-13] MEDS: ceFAZolin Sodium/Dextrose,Iso 2 GM/50 ML PIGGYBACK IV (17:02)
[2021-08-13] MEDS: HYDROmorphone HCl 0.5 MG/0.5 ML SYRINGE 0.25 MG IVPUSH (17:03)
[2021-08-13] MEDS: Metoclopramide HCl 10 MG/2 ML VIAL IVPUSH (17:48)
[2021-08-13] MEDS: ondansetron HCL 4 MG/2 ML VIAL IVPUSH (22:57)
[2021-08-14 04:00] VITALS: BP 121/68; PULSE 54; RESP 16; TEMP 36.4; O2SAT 94
[2021-08-14] MEDS: ondansetron HCL 4 MG/2 ML VIAL IVPUSH (05:59)
[2021-08-14 06:24] LABS: MANUAL DIFF FLAG NO
[2021-08-14 06:36] LABS: Basophils Percent Auto 0.1 % (0-2); Hemoglobin 13.4 g/dl (12.0-16.0); Imm Gran Abs Auto 0.15 X10*3/uL (0.00-0.03); Imm Gran Pct Auto 1.1 % (0.0-0.4); Mean Corpuscular HGB Conc 33.5 g/dl (31.0-35.0); Mean Corpuscular Hemoglobin 29.5 pg (27.0-33.0); Mean Corpuscular Volume 88.1 fL (80-98); Mean Platelet Volume 11.7 fL (9.4-12.3); Monocytes Absolute Auto 1.2 X10*3/uL (0.1-1.2); Monocytes Percent Auto 8.4 % (2-11); Neutrophils Absolute Auto 11.9 X10*3/uL (2.0-8.3); Neutrophils Percent Auto 83.4 % (45-73); Platelet Count 250 X10*3/uL (160-400); Red Blood Count 4.54 X10*6/uL (4.20-5.50); Red Cell Distribution Width 13.1 % (11.0-16.0); White Blood Count 14.3 X10*3/uL (4.8-10.8)
[2021-08-14 06:44] LABS: Anion Gap 16 (12-20); Blood Urea Nitrogen 8 mg/dL (9-16); Calcium 8.9 mg/dL (8.4-10.2); Carbon Dioxide 18 mmol/L (22-29); Chloride 107 mmol/L (96-108); Creatinine Clr Calc Pharmacy 80.4; Estimated Glomerular Filt Rate > 60; Glucose Random 111 mg/dL (60-115); Potassium 4.7 mmol/L (3.3-5.1); Sodium 136 mmol/L (135-145)
[2021-08-14 07:41] VITALS: BP 150/77; PULSE 67; RESP 18; TEMP 36.6; O2SAT 95
[2021-08-14] MEDS: Losartan Potassium 25 MG TABLET PO (07:58)
[2021-08-14] MEDS: Famotidine/PF 20 MG/2 ML VIAL IVPUSH (07:58)
--- NOTE | 2021-08-14 08:52 | MHC.CM.PN ---
EMR REVIEWED, PT ADMITTED S/P LAP SLEEVE GASTRECTOMY AND HERNIA REPAIR, CM MET W/PT WHO IS A&OX4, PT REPORTS SHE LIVES W/ 2 ADULT CHILDREN AND S.O., PT HAS NO DME AND NO HOME SERVICES, PT DOES NOT ANTICIPATE ANY NEEDS AFTER D/C AND HAS FOLLOW-UP APPT ON Thursday08/19/21 AT 8:30AM, PT VERIFIES PCP IS EDYTA LEWIS AND PT WAS PROVIDED INFORMATION ON HCP AND IS DECLINING AT THIS TIME. D/C PLAN: HOME SELF-CARE, PT WILL ARRANGE S.O OR FRIEND FOR TRANSPORT
[2021-08-14] MEDS: Pravastatin Sodium 20 MG TABLET PO (09:13)
--- NOTE | 2021-08-14 09:50 | PM.PNGS ---
Subjective Subjective Date of Service: 08/14/21 Patient reports: feels better, tolerating liquids well and voiding w/o difficulty Interval history: POD 1 s/p LSG. Cxr ffrom yesterday ok. No complaints of difficulty breathing. Mid upper abdominal pain controlled with meds. Not requiring narcotic Physical Exam Vital Signs: Vital Signs: Last Vital Signs Temp 97.9 F 08/14/21 07:41 Pulse 67 08/14/21 07:41 Resp 18 08/14/21 07:41 BP 150/77 H 08/14/21 07:41 Pulse Ox 95 08/14/21 07:41 Body Mass Index 36.3 Resp: Auscultation: clear to auscultation bilaterally Cardio: Rate: regular rate Rhythm: regular rhythm GI: Inspection: Yes incision (c/d/i) Auscultation: normal bowel sounds Extrem: General: Yes no pedal edema, Yes no calf tenderness and Yes edema Psych: Appearance: grossly normal Mental Status: mental status grossly normal Procedures Date of Service Date of Service: 08/14/21 Progress Note: A&P Assessment and plan (1) S/P laparoscopic sleeve gastrectomy: Status: Acute Assessment and Plan: Doing well s/p LSG, POD 1. Discussed diet plan, water intake, walking and incentive spirometry. Plan for dc home today Fall Risk Details Current Medications: Current Medications Famotidine (Famotidine/Pf 20 Mg/2 Ml Vial) 20 mg IVPUSH BID [facility] Last Admin: 08/14/21 07:58 Dose: 20 mg Documented by: Hydromorphone HCl (Hydromorphone Hcl 0.5 Mg/0.5 Ml Syringe) 0.25 mg IVPUSH Q4H PRN; Protocol PRN Reason: Pain, Moderate (Pain Scale 4-6 Last Admin: 08/13/21 17:03 Dose: 0.25 mg Documented by: Lactated Ringer's (Lr) 1,000 mls @ 100 mls/hr IVCONT .Q10H [facility] Last Infusion: 08/14/21 09:10 Dose: Infused Documented by: Acetaminophen (Ofirmev) 1,000 mg in 100 mls @ 16.7 mls/hr IV .Q6H [facility] Last Admin: 08/14/21 04:39 Dose: 16.7 mls/hr Documented by: Losartan Potassium (Losartan Potassium 25 Mg Tablet) 25 mg PO DAILY [facility]; Protocol Last Admin: 08/14/21 07:58 Dose: 25 mg Documented by: Metoclopramide HCl (Metoclopramide Hcl 10 Mg/2 Ml Vial) 10 mg IVPUSH Q6H PRN PRN Reason: Nausea Last Admin: 08/13/21 17:48 Dose: 10 mg Documented by: Ondansetron HCl (Ondansetron Hcl 4 Mg/2 Ml Vial) 4 mg IVPUSH Q8H [facility] Last Admin: 08/14/21 05:59 Dose: 4 mg Documented by: Pravastatin Sodium (Pravastatin Sodium 20 Mg Tablet) 20 mg PO DAILY [facility] Last Admin: 08/14/21 09:13 Dose: 20 mg Documented by: Sodium Chloride (0.9 % Sodium Chloride Flush 3 Ml Syringe) 3 ml IVFLUSH QSHIFT [facility] Last Admin: 08/14/21 06:36 Dose: Not Given Documented by: Time Spent With Patient Time: Total time spent is greater than 50% in coordination of care (as documented) at patient's floor/unit and/or counseling patient: Time with patient: less than 15 minutes Quality Stroke Does the patient have a stroke diagnosis?: No Reason for No Anti-thrombotic by Day Two: Not indicated VTE Prior VTE?: No VTE Risk Level:: Surgical - moderate VTE Device Contraindication: N/A - Device Ordered VTE Drug Contraindication: Treatment Not Indicated
--- NOTE | 2021-08-14 15:11 | HO.POSTANES ---
Post Anesthesia Evaluation Post Anesthesia Evaluation Vital Signs: Vital Signs Temp Pulse Resp BP Pulse Ox 08/14/21 07:41 97.9 F 67 18 150/77 H 95 08/14/21 04:00 97.6 F 54 16 121/68 94 Anesthesia: General Endotracheal-GETA Mental Status: Awake Pain Control: Satisfactory Nausea/Vomiting: None Hydration: Adequate Anesthesia-Related Issues: No Anes. Related Issues
== END 2021-08-14 10:01 | disposition home or self-care (01) | DRG 403 ==
LOC: HO.SSSA 13:23 → HO.S3 13:37
PROVIDERS: Physician Assistant Surgical; Admitting Provider Surgery; PCP Nurse Practitioner Family; Visit Provider Surgery
PROC: 0DB64Z3 Excision of Stomach, Percutaneous Endoscopic Approach, Vertical (ICD-10-PCS; CPT 43845; principal; 2021-08-13 10:10)
DX: E66.01 Morbid (severe) obesity due to excess calories (principal); K76.0 Fatty (change of) liver, not elsewhere classified; K44.0 Diaphragmatic hernia with obstruction, without gangrene; Z68.35 Body mass index [BMI] 35.0-35.9, adult; E78.5 Hyperlipidemia, unspecified; I10 Essential (primary) hypertension; K21.9 Gastro-esophageal reflux disease without esophagitis; Z20.822 Contact with and (suspected) exposure to COVID-19; Z79.899 Other long term (current) drug therapy
CPT/HCPCS: 36415; 71045; 80048; 85014; 85018; 85025; 86850; 86900; 86901; 87635; 88307; 88342; 99024; A4649; J0131; J0690; J1100; J1170; J2250; J2370; J2405; J2765; J3010

== ENCOUNTER → 2021-08-19 08:21 | Outpatient (BNVA) | payer OTHER, SELFPAY | PROVIDERS: Visit Provider Surgery | DX: E66.9 Obesity, unspecified (principal); Z68.34 Body mass index [BMI] 34.0-34.9, adult | CPT/HCPCS: 99212 ==

== ENCOUNTER → 2021-09-20 08:14 | Outpatient (BNVA) | payer OTHER, SELFPAY | PROVIDERS: Visit Provider Surgery | DX: E66.9 Obesity, unspecified (principal); Z68.32 Body mass index [BMI] 32.0-32.9, adult | CPT/HCPCS: 99212 ==

== ENCOUNTER → 2021-10-30 08:04 | Outpatient (BNVA) | payer OTHER, SELFPAY | PROVIDERS: Visit Provider Physician Assistant Surgical | DX: E66.3 Overweight (principal); Z68.28 Body mass index [BMI] 28.0-28.9, adult | CPT/HCPCS: 99212 ==

== ENCOUNTER → 2021-12-09 08:00 | Outpatient (BNVA) | payer OTHER, SELFPAY | PROVIDERS: Visit Provider Physician Assistant Surgical | DX: E66.3 Overweight (principal); Z68.26 Body mass index [BMI] 26.0-26.9, adult | CPT/HCPCS: 99212 ==

== ENCOUNTER → 2022-01-02 08:01 | Outpatient (BNVA) | payer OTHER, SELFPAY | PROVIDERS: Visit Provider Dietitian, Registered | DX: E66.9 Obesity, unspecified (principal); Z68.24 Body mass index [BMI] 24.0-24.9, adult; Z98.84 Bariatric surgery status | CPT/HCPCS: 97803 ==

== ENCOUNTER → 2022-01-10 08:10 | Outpatient (BNVA) | payer OTHER, SELFPAY | PROVIDERS: Visit Provider Physician Assistant Surgical ==

== ENCOUNTER 2022-02-17 10:04 | Outpatient (REF) | payer OTHER, SELFPAY ==
[2022-02-17 11:13] LABS: MANUAL DIFF FLAG NO
[2022-02-17 11:29] LABS: Estimated Average Glucose 97 mg/dL
[2022-02-17 11:34] LABS: Basophils Percent Auto 0.6 % (0-2); Eosinophils Absolute Auto 0.1 X10*3/uL (0.0-0.4); Eosinophils Percent Auto 0.7 % (0-4); Hematocrit 40.3 % (37.0-47.0); Hemoglobin 13.4 g/dl (12.0-16.0); Imm Gran Abs Auto 0.03 X10*3/uL (0.00-0.03); Imm Gran Pct Auto 0.4 % (0.0-0.4); Lymphocytes Absolute Auto 2.4 X10*3/uL (1.2-4.9); Mean Corpuscular HGB Conc 33.3 g/dl (31.0-35.0); Mean Corpuscular Hemoglobin 30.7 pg (27.0-33.0); Mean Corpuscular Volume 92.4 fL (80.0-98.0); Mean Platelet Volume 11.3 fL (9.4-12.3); Monocytes Absolute Auto 0.5 X10*3/uL (0.1-1.2); Monocytes Percent Auto 7.3 % (2-11); Neutrophils Absolute Auto 4.1 x10*3/uL (2.0-8.3); Platelet Count 243 X10*3/uL (160-400); Red Blood Count 4.36 X10*6/uL (4.20-5.50); Red Cell Distribution Width 14.1 % (11.0-16.0); White Blood Count 7.1 X10*3/uL (4.8-10.8)
[2022-02-17 12:05] LABS: Anion Gap 12 (12-20); Blood Urea Nitrogen 18 mg/dL (9-16); C Reactive Protein 0.25 mg/dL (< or = 0.50); Calcium 9.8 mg/dL (8.4-10.2); Carbon Dioxide 26 mmol/L (22-29); Chloride 105 mmol/L (96-108); Cholesterol 214 mg/dL; Estimated Glomerular Filt Rate > 60; Glucose Random 92 mg/dL (60-115); HDL Cholesterol 53 mg/dL; Iron 95 mcg/dL (30-160); LDL Cholesterol Calculated 149 mg/dl; Percent Iron Saturation 36 % (15-50); Potassium 4.1 mmol/L (3.3-5.1); Sodium 139 mmol/L (135-145); Total Iron Binding Capacity 267 mcg/dL (228-428); Triglycerides 62 mg/dL; Unsaturated Iron Binding 172 ug/dL
[2022-02-17 12:12] LABS: Ferritin 198 ng/mL (10-250); TSH reflex Free T4 0.96 uIU/mL (0.32-4.0); Vitamin D 25-OH Total 71.1 ng/mL (>30)
[2022-02-17 12:29] LABS: Folate 17.5 ng/mL (> or = 4.0); Vitamin B12 906 pg/mL (200-900)
[2022-02-18 14:41] LABS: Calcium (PTHI) 9.7 mg/dL (8.6-10.4); PTHI 43 pg/mL (16-77)
[2022-02-20 06:27] LABS: Zinc 62 mcg/dL (60-130)
[2022-02-22 17:02] LABS: Vitamin A 38 mcg/dL (38-98)
[2022-02-23 04:37] LABS: Vitamin B1 24 nmol/L (8-30)
== END 2022-02-17 10:05 | disposition home or self-care (01) ==
LOC: CF 10:04
PROVIDERS: PCP Nurse Practitioner Family; Visit Provider Physician Assistant Surgical
DX: L98.7 Excessive and redundant skin and subcutaneous tissue (principal); Z98.84 Bariatric surgery status
CPT/HCPCS: 36415; 80048; 80061; 82306; 82607; 82728; 82746; 83036; 83540; 83970; 84425; 84443; 84590; 84630; 85025; 86140; 99212

== ENCOUNTER → 2022-03-14 08:08 | Outpatient (BNVA) | payer OTHER, SELFPAY | PROVIDERS: Visit Provider Physician Assistant Surgical | DX: Z13.89 Encounter for screening for other disorder (principal); M79.3 Panniculitis, unspecified; L98.7 Excessive and redundant skin and subcutaneous tissue; Z98.84 Bariatric surgery status ==

== ENCOUNTER → 2022-03-28 09:44 | Outpatient (BNVA) | payer OTHER, SELFPAY | PROVIDERS: Visit Provider Physician Assistant | DX: M79.3 Panniculitis, unspecified (principal); L98.7 Excessive and redundant skin and subcutaneous tissue; Z98.84 Bariatric surgery status | CPT/HCPCS: 99212 ==

== ENCOUNTER → 2022-04-29 10:17 | Outpatient (BNVA) | payer OTHER, SELFPAY | PROVIDERS: Visit Provider Dietitian, Registered | DX: E66.3 Overweight (principal); Z68.21 Body mass index [BMI] 21.0-21.9, adult; Z98.84 Bariatric surgery status; Z71.3 Dietary counseling and surveillance | CPT/HCPCS: 97803 ==

== ENCOUNTER → 2022-08-13 10:20 | Outpatient (BNVA) | payer OTHER, SELFPAY | PROVIDERS: Visit Provider Dietitian, Registered | DX: E66.9 Obesity, unspecified (principal); Z68.21 Body mass index [BMI] 21.0-21.9, adult; Z98.84 Bariatric surgery status; Z90.3 Acquired absence of stomach [part of]; Z71.3 Dietary counseling and surveillance | CPT/HCPCS: 97803 ==

== ENCOUNTER → 2022-09-12 10:00 | Outpatient (BNVA) | payer OTHER, SELFPAY | PROVIDERS: Visit Provider Physician Assistant Surgical | DX: L98.7 Excessive and redundant skin and subcutaneous tissue (principal); Z98.84 Bariatric surgery status | CPT/HCPCS: 99212 ==

== ENCOUNTER 2022-09-13 07:41 | Outpatient (REF) | payer OTHER, SELFPAY ==
[2022-09-13 08:21] LABS: MANUAL DIFF FLAG NO
[2022-09-13 08:28] LABS: Basophils Absolute Auto 0.1 X10*3/uL (0.0-0.2); Basophils Percent Auto 1.2 % (0-2); Eosinophils Absolute Auto 0.1 X10*3/uL (0.0-0.4); Eosinophils Percent Auto 1.9 % (0-4); Hematocrit 40.1 % (37.0-47.0); Hemoglobin 13.8 g/dl (12.0-16.0); Imm Gran Abs Auto 0.01 X10*3/uL (0.00-0.03); Imm Gran Pct Auto 0.2 % (0.0-0.4); Lymphocytes Absolute Auto 2.3 X10*3/uL (1.2-4.9); Lymphocytes Percent Auto 47.6 % (20-40); Mean Corpuscular HGB Conc 34.4 g/dl (31.0-35.0); Mean Corpuscular Hemoglobin 31.1 pg (27.0-33.0); Mean Corpuscular Volume 90.3 fL (80.0-98.0); Mean Platelet Volume 9.9 fL (9.4-12.3); Monocytes Absolute Auto 0.5 X10*3/uL (0.1-1.2); Monocytes Percent Auto 9.7 % (2-11); Neutrophils Absolute Auto 1.9 x10*3/uL (2.0-8.3); Neutrophils Percent Auto 39.4 % (45-73); Platelet Count 220 X10*3/uL (160-400); Red Blood Count 4.44 X10*6/uL (4.20-5.50); Red Cell Distribution Width 12.3 % (11.0-16.0); White Blood Count 4.8 X10*3/uL (4.8-10.8)
[2022-09-13 08:39] LABS: Estimated Average Glucose 103 mg/dL; Hemoglobin A1c % 5.2 %
[2022-09-13 09:20] LABS: Alanine Aminotransferase 30 U/L (0-31); Albumin Level 4.2 g/dL (3.5-5.0); Alkaline Phosphatase 74 U/L (39-117); Anion Gap 13 (12-20); Aspartate Amino Transferase 24 U/L (5-31); Bilirubin Total 1.6 mg/dL (0.0-1.0); Blood Urea Nitrogen 18 mg/dL (9-16); C Reactive Protein 0.14 mg/dL (< or = 0.50); Calcium 9.3 mg/dL (8.4-10.2); Carbon Dioxide 26 mmol/L (22-29); Chloride 105 mmol/L (96-108); Cholesterol 170 mg/dL; Estimated Glomerular Filt Rate > 60; Glucose Random 93 mg/dL (60-115); HDL Cholesterol 54 mg/dL; Iron 141 mcg/dL (30-160); LDL Cholesterol Calculated 108 mg/dl; Percent Iron Saturation 54 % (15-50); Potassium 4.3 mmol/L (3.3-5.1); Sodium 140 mmol/L (135-145); Total Iron Binding Capacity 263 mcg/dL (228-428); Total Protein 6.9 g/dL (6.5-8.0); Triglycerides 43 mg/dL; Unsaturated Iron Binding 122 ug/dL
[2022-09-13 09:29] LABS: Ferritin 159 ng/mL (10-250); Insulin 4 uU/mL (2-29); Vitamin D 25-OH Total 51.2 ng/mL (>30)
[2022-09-13 09:43] LABS: Vitamin B12 1024 pg/mL (200-900)
[2022-09-15 15:02] LABS: Calcium (PTHI) 9.1 mg/dL (8.6-10.4); PTHI 57 pg/mL (16-77)
[2022-09-17 12:16] LABS: Vitamin A 42 mcg/dL (38-98)
[2022-09-17 13:16] LABS: Zinc 65 mcg/dL (60-130)
[2022-09-19 13:47] LABS: Vitamin B1 20 nmol/L (8-30)
== END 2022-09-13 07:42 | disposition home or self-care (01) ==
LOC: HO.LAB 07:41
PROVIDERS: Visit Provider Physician Assistant Surgical
DX: Z98.84 Bariatric surgery status (principal)
CPT/HCPCS: 36415; 80053; 80061; 82306; 82607; 82728; 82746; 83036; 83525; 83540; 83970; 84425; 84443; 84590; 84630; 85025; 86140

== ENCOUNTER → 2022-12-01 10:24 | Outpatient (BNVA) | payer OTHER, SELFPAY | PROVIDERS: Visit Provider Physician Assistant Surgical | DX: Z13.89 Encounter for screening for other disorder (principal) ==

== ENCOUNTER → 2023-02-11 13:24 | Outpatient (BNVA) | payer OTHER, SELFPAY | PROVIDERS: Visit Provider Physician Assistant Surgical | DX: L98.7 Excessive and redundant skin and subcutaneous tissue (principal); Z98.84 Bariatric surgery status | CPT/HCPCS: 99212 ==

== ENCOUNTER 2023-06-04 07:05 | Outpatient (REF) | payer OTHER, SELFPAY ==
[2023-06-04 07:18] LABS: MANUAL DIFF FLAG NO
[2023-06-04 07:46] LABS: Basophils Absolute Auto 0.1 X10*3/uL (0.0-0.2); Basophils Percent Auto 1.2 % (0-2); Eosinophils Absolute Auto 0.1 X10*3/uL (0.0-0.4); Eosinophils Percent Auto 2.7 % (0-4); Hematocrit 40.9 % (37.0-47.0); Hemoglobin 13.7 g/dl (12.0-16.0); Imm Gran Abs Auto 0.01 X10*3/uL (0.00-0.03); Imm Gran Pct Auto 0.2 % (0.0-0.4); Lymphocytes Absolute Auto 2.6 X10*3/uL (1.2-4.9); Mean Corpuscular HGB Conc 33.5 g/dl (31.0-35.0); Mean Corpuscular Volume 89.7 fL (80.0-98.0); Mean Platelet Volume 10.1 fL (9.4-12.3); Monocytes Absolute Auto 0.4 X10*3/uL (0.1-1.2); Monocytes Percent Auto 8.1 % (2-11); Neutrophils Absolute Auto 1.7 x10*3/uL (2.0-8.3); Neutrophils Percent Auto 34.8 % (45-73); Platelet Count 213 X10*3/uL (160-400); Red Blood Count 4.56 X10*6/uL (4.20-5.50); Red Cell Distribution Width 12.4 % (11.0-16.0); White Blood Count 4.8 X10*3/uL (4.8-10.8)
[2023-06-04 07:59] LABS: Estimated Average Glucose 103 mg/dL; Hemoglobin A1c % 5.2 %
[2023-06-04 08:36] LABS: Alanine Aminotransferase 32 U/L (0-31); Albumin Level 4.1 g/dL (3.5-5.0); Alkaline Phosphatase 79 U/L (39-117); Anion Gap 12 (12-20); Aspartate Amino Transferase 29 U/L (5-31); Bilirubin Total 1.7 mg/dL (0.0-1.0); Blood Urea Nitrogen 19 mg/dL (9-16); C Reactive Protein 0.22 mg/dL (< or = 0.50); Carbon Dioxide 27 mmol/L (22-29); Chloride 106 mmol/L (96-108); Cholesterol 159 mg/dL; Estimated Glomerular Filt Rate > 60; Glucose Random 89 mg/dL (60-115); HDL Cholesterol 62 mg/dL; Iron 116 mcg/dL (30-160); LDL Cholesterol Calculated 89 mg/dl; Percent Iron Saturation 47 % (15-50); Potassium 4.3 mmol/L (3.3-5.1); Sodium 141 mmol/L (135-145); Total Iron Binding Capacity 245 mcg/dL (228-428); Total Protein 7.2 g/dL (6.5-8.0); Triglycerides 44 mg/dL; Unsaturated Iron Binding 129 ug/dL
[2023-06-04 09:00] LABS: Ferritin 157 ng/mL (10-250); Insulin 3 uU/mL (2-29); TSH reflex Free T4 1.13 uIU/mL (0.32-4.0); Vitamin D 25-OH Total 66.9 ng/mL (>30)
[2023-06-04 09:02] LABS: Folate 14.4 ng/mL (> or = 4.0); Vitamin B12 1316 pg/mL (200-900)
[2023-06-05 17:43] LABS: Calcium (PTHI) 9.4 mg/dL (8.6-10.4); PTHI 50 pg/mL (16-77)
[2023-06-10 01:28] LABS: Zinc 62 mcg/dL (60-130)
[2023-06-10 15:43] LABS: Vitamin B1 20 nmol/L (8-30)
[2023-06-11 00:39] LABS: Vitamin A 42 mcg/dL (38-98)
== END 2023-06-04 07:06 | disposition home or self-care (01) ==
LOC: HO.LAB 07:05
PROVIDERS: PCP Nurse Practitioner Family; Visit Provider Physician Assistant Surgical
DX: L98.7 Excessive and redundant skin and subcutaneous tissue (principal); Z98.84 Bariatric surgery status
CPT/HCPCS: 36415; 80053; 80061; 82306; 82607; 82728; 82746; 83036; 83525; 83540; 83970; 84425; 84443; 84590; 84630; 85025; 86140

== ENCOUNTER 2023-08-18 09:49 | Outpatient (AMB) | payer OTHER, SELFPAY ==
--- NOTE | 2023-08-18 09:51 | MHC.OFFVISWM ---
Intake VS Expanded 08/18/23 09:57 Height 5 ft 4.5 in Weight 129 lb 9.6 oz BMI 21.9 BP 136/78 Blood Pressure Location Rt brachial Blood Pressure Position Sitting Pulse 58 Pulse Source Pulse Oximeter Temp 97.0 F Temperature Source Temporal Artery Scan Pulse Oximetry 98 Oxygen Delivery Method Room Air Body Fat 24.6 Body Fat Percentage 19.1 Free Fat Mass 104.8 Muscle Mass 99.4 Visceral Mass 1.0 Water Mass 75.4 BMR 1,419 Intake Visit Reasons: (OV) PO LSG 08/13/21 Allergies No Known Allergies Allergy (Verified 08/18/23 09:53) Medication List - Last Reconciled 08/18/23 by PRASANNA Chery [baraitric MVI PO DAILY] [Oh +D PO BID] clotrimazole 1% (Antifungal (clotrimazole)) 1 appl topical BID esterified estrogens 2 mg PO DAILY HPI HPI Comments History of Present Illness Details This?is a?58?yo female who is s/p LSG 08/13/2021. Presents for 2 year post op visit. Weight stable since last office visit 6 months ago.? No complaints of nausea, emesis, abdominal pain or reflux, or constipation. Present meal plan includes: Breakfast: premier bar lunch: protein shake dinner: protein and veg/salad sometimes snacks on almonds or prunes Vitamins: once daily bariatric multivitamin taking bariatric choice with 45mg iron plus a calcium by [facility]. Exercise: works with a sports medicine trainer on weight training.?goes about 4-5x per week Pt continues to have difficulty with excess skin of abdomen. Uses clotrimazole ointment for excess skin of abdomen to prevent painful rashes. She notices a lot of moisture that collects in skin fold of abdomen, which has an unpleasant odor and she has to wash frequently. Has to clean belly button very frequently with a cotton tipped swab as Has to wear compressive clothing to prevent friction; if she does not wear compressive clothing she has a lot of discomfort with the excess skin moving during exercise and her range of motion can be limited. Did the patient ever have any of these conditions and are they resolved or still being treated? GERD: resolved SOPHY:? never DM:? never HTN:? resolved Hyperlipidemia:?resolved Post op complications:?none PENDING SALE TO [facility] Medical History Steatosis, liver Pulmonary nodule Pericardial cyst along right cardiophrenic angle Adjustment disorder, unspecified GERD (gastroesophageal reflux disease) Hyperlipidemia Hypertension Obesity Surgical History Hx of hysterectomy History of sleeve gastrectomy Hx of cataract surgery Hx of dilation and curettage Hx of colonoscopy Family History Mother Afib Father No problems noted. Brother No problems noted. Brother No problems noted. Brother No problems noted. Son No problems noted. Daughter No problems noted. 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 home: Yes (children) Do you presently have visiting nurse or other home services: No Alcohol intake: former Year quit: 2021 Patient Tobacco Use Status: Never used Tobacco service: No Current occupational status: employed Physical Exam Vital Signs: Last Vital Signs Temp 97.0 F 08/18/23 09:57 Pulse 58 08/18/23 09:57 BP 136/78 08/18/23 09:57 Pulse Ox 98 08/18/23 09:57 Oxygen Delivery Method Room Air 08/18/23 09:57 BMI result Body Mass Index 21.9 Const General: cooperative, comfortable and no acute distress Orientation/consciousness: patient oriented x3 GI Other: soft, nontender, nondistended, incisions well healed, no hernia, no masses Grade II pannus with some active excoriation bilaterally (photographed) Neuro General: patient oriented x3 Assessment & Plan Assessment & Plan (1) Excess skin: Code(s): L98.7 - Excessive and redundant skin and subcutaneous tissue (2) S/P laparoscopic sleeve gastrectomy: Code(s): Z98.84 - Bariatric surgery status Plan Pt has done very well maintaining weight loss 2 years after sleeve, no surgical complications. She has ongoing issues of excess skin of abdomen, causing painful malodorous rashes refractory to topical Rx treatment. Excess skin is also causing limitation and discomfort of range of motion, particularly in exercise which is necessary to maintain her excellent weight loss. She would benefit from panniculectomy for definitive treatment. Photos taken today. Will submit in springtime as pt would like to have surgery in April after school year is finished. Patient is at healthy BMI but with ongoing issues of excess skin of abdomen, and is not considered stable at this time. I spent a total of 30 minutes reviewing/updating records, examining the patient and counseling the patient on weight management as detailed above. Coding Level of Care Code Est Pt Level 4 (64888) Diagnoses Excess skin L98.7 S/P laparoscopic sleeve gastrectomy Z98.84
[2023-08-18 09:57] VITALS: BP 136/78; PULSE 58; TEMP 36.1; O2SAT 98; BMI 21.9
== END 2023-08-18 11:03 | disposition home or self-care (01) ==
PROVIDERS: Visit Provider Physician Assistant Surgical
DX: L98.7 Excessive and redundant skin and subcutaneous tissue (principal); Z98.84 Bariatric surgery status
CPT/HCPCS: 99214

== ENCOUNTER → 2023-08-18 09:49 | Outpatient (BNVA) | payer OTHER, SELFPAY | PROVIDERS: Visit Provider Physician Assistant Surgical | DX: L98.7 Excessive and redundant skin and subcutaneous tissue (principal); Z98.84 Bariatric surgery status | CPT/HCPCS: 99212 ==

== ENCOUNTER 2024-02-16 09:47 | Outpatient (AMB) | payer OTHER, SELFPAY ==
--- NOTE | 2024-02-16 10:01 | MHC.OFFVISWM ---
Intake VS Expanded 02/16/24 10:10 BP 130/77 Blood Pressure Location Rt brachial Blood Pressure Position Sitting Pulse 57 Pulse Source Pulse Oximeter Temp 96.6 F L Temperature Source Tympanic Pulse Oximetry 98 Oxygen Delivery Method Room Air Height 5 ft 4.5 in Weight 131 lb 12.8 oz BMI 22.3 Body Fat % 22.1 Body Fat Mass 29.2 Fat Free Mass 102.6 Visceral Fat Rating 5.0 Body Water % 55.1 Body Water Mass 72.6 Muscle Mass/Score 97.2 Basal Metabolic Rate/Score 1,347 Intake Visit Reasons: (OV) PO LSG 08/13/21 Allergies No Known Allergies Allergy (Verified 02/16/24 10:16) Medication List - Last Reconciled 02/16/24 by PRASANNA Chery [baraitric MVI PO DAILY] [Oh +D PO BID] clotrimazole 1% (Antifungal (clotrimazole)) 1 appl topical BID esterified estrogens 2 mg PO DAILY turmeric mg PO HPI HPI Comments History of Present Illness Details This?is a?58?yo female who is s/p LSG 08/13/2021. Presents for 2.5 year post op visit. Weight +2lbs since last office visit 6 months ago.? No complaints of nausea, emesis, abdominal pain or reflux, or constipation. Present meal plan includes: Breakfast: premier bar lunch: protein shake dinner: protein and veg/salad sometimes snacks on almonds or prunes Vitamins: once daily bariatric multivitamin taking bariatric choice with 45mg iron plus a calcium by [facility]. Exercise: works with a service dog trainer on weight training.?goes about 4-5x per week Pt continues to have difficulty with excess skin of abdomen. Uses clotrimazole ointment for excess skin of abdomen to prevent painful rashes. She notices a lot of moisture that collects in skin fold of abdomen, which has an unpleasant odor and she has to wash frequently. Has to clean belly button very frequently with a cotton tipped swab. Has to wear compressive clothing to prevent friction; if she does not wear compressive clothing she has a lot of discomfort with the excess skin moving during exercise and her range of motion can be limited. Activities of daily living are more difficult due to excess skin as it can get in the way of activities like walking and bending over and become very uncomfortable. PFSH Medical History Steatosis, liver Pulmonary nodule Pericardial cyst along right cardiophrenic angle Adjustment disorder, unspecified GERD (gastroesophageal reflux disease) Hyperlipidemia Hypertension Obesity Surgical History Hx of hysterectomy History of sleeve gastrectomy Hx of cataract surgery Hx of dilation and curettage Hx of colonoscopy Family History Mother Afib Father No problems noted. Brother No problems noted. Brother No problems noted. Brother No problems noted. Son No problems noted. Daughter No problems noted. Social History Are you a primary progressive care nurse to a significant other at home: Yes (children) Do you presently have visiting nurse or other home services: No Alcohol intake: former Year quit: 2021 Comment: aware of trip hazard Patient Tobacco Use Status: Never used Tobacco service: No Current occupational status: employed Physical Exam Const General: cooperative, comfortable and no acute distress Orientation/consciousness: patient oriented x3 GI Other: soft, nontender, nondistended, incisions well healed, no hernia, no masses Grade II pannus Neuro General: patient oriented x3 Assessment & Plan Assessment & Plan (1) Excess skin: Code(s): L98.7 - Excessive and redundant skin and subcutaneous tissue (2) Panniculitis: Code(s): M79.3 - Panniculitis, unspecified (3) S/P laparoscopic sleeve gastrectomy: Code(s): Z98.84 - Bariatric surgery status Plan Pt has done very well maintaining weight loss 2.5 years after sleeve, no surgical complications. She has ongoing issues of excess skin of abdomen, causing painful malodorous rashes refractory to topical Rx treatment. Excess skin is also causing limitation and discomfort of range of motion, including walking, bending, and exercise which is necessary to maintain her excellent weight loss. She would benefit from panniculectomy for definitive treatment. Repeat photos taken today. Will submit today; pt would like to have surgery in April after school year is finished. Patient is at healthy BMI but with ongoing issues of excess skin of abdomen, and is not considered stable at this time. I spent a total of 30 minutes reviewing/updating records, examining the patient and counseling the patient on weight management as detailed above. Coding Level of Care Code Est Pt Level 4 (89238) Diagnoses Excess skin L98.7 Panniculitis M79.3 S/P laparoscopic sleeve gastrectomy Z98.84
[2024-02-16 10:10] VITALS: BP 130/77; PULSE 57; TEMP 35.9; O2SAT 98; BMI 22.3
== END 2024-02-16 10:43 | disposition home or self-care (01) ==
PROVIDERS: PCP Nurse Practitioner Family; Referring Provider Nurse Practitioner Family; Visit Provider Physician Assistant Surgical
DX: L98.7 Excessive and redundant skin and subcutaneous tissue (principal); M79.3 Panniculitis, unspecified; Z98.84 Bariatric surgery status
CPT/HCPCS: 99214

== ENCOUNTER → 2024-02-16 09:47 | Outpatient (BNVA) | payer OTHER, SELFPAY | PROVIDERS: PCP Nurse Practitioner Family; Visit Provider Physician Assistant Surgical | DX: L98.7 Excessive and redundant skin and subcutaneous tissue (principal); M79.3 Panniculitis, unspecified; Z98.84 Bariatric surgery status | CPT/HCPCS: 99212 ==

== ENCOUNTER 2024-04-04 11:09 | Outpatient (AMB) | payer OTHER, SELFPAY ==
--- NOTE | 2024-04-04 11:00 | A.OFFVIS_ITS ---
Intake Visit Reasons: PO LSG 08/13/21 Allergies No Known Allergies Allergy (Verified 02/16/24 10:16) Medication List - Last Reconciled 04/04/24 by PRASANNA Chery [baraitric MVI PO DAILY] [Oh +D PO BID] clotrimazole 1% (Antifungal (clotrimazole)) 1 appl topical BID esterified estrogens 2 mg PO DAILY fluconazole 150 mg PO QWEEK 2 doses turmeric mg PO HPI Comments Details: Pt presents in follow up for issues of excess skin. Weight stable since last visit. Breakfast: Zone bar lunch: Premier shake dinner: protein and veg/salad sometimes snacks on almonds or prunes Vitamins: once daily bariatric multivitamin taking bariatric choice with 45mg iron plus a calcium by [facility]. Exercise: works with a sports athletic trainer on weight training.?goes about 4-5x per week Pt continues to have difficulty with excess skin of abdomen. Uses clotrimazole ointment for excess skin of abdomen to prevent painful rashes. She notices a lot of moisture that collects in skin fold of abdomen, which has an unpleasant odor and she has to wash frequently. Has to clean belly button very frequently with a cotton tipped swab. Has to wear compressive clothing to prevent friction; if she does not wear compressive clothing she has a lot of discomfort with the excess skin moving during exercise and her range of motion can be limited. Activities of daily living are more difficult due to excess skin as it can get in the way of activities like walking and bending over and become very uncomfortable. After last visit, due to worsening rashes, pt was given a course of PO antifungals. She reports that this did not resolve the rashes. [facility] Medical History Steatosis, liver Pulmonary nodule Pericardial cyst along right cardiophrenic angle Adjustment disorder, unspecified GERD (gastroesophageal reflux disease) Hyperlipidemia Hypertension Obesity Surgical History Hx of hysterectomy History of sleeve gastrectomy Hx of cataract surgery Hx of dilation and curettage Hx of colonoscopy Family History Mother Afib Father No problems noted. Brother No problems noted. Brother No problems noted. Brother No problems noted. Son No problems noted. Daughter No problems noted. Social History Are you a primary pharmacist critical care to a significant other at home: Yes (children) Do you presently have visiting nurse or other home services: No Alcohol intake: former Year quit: 2021 Comment: aware of trip hazard Patient Tobacco Use Status: Never used Tobacco service: No Current occupational status: employed Telehealth Telehealth Telehealth Platform: Telephone Location of provider rendering services: practice address Location of patient: address on file Patient Identification confirmed using: Name, : Yes Telehealth method: voice only Patient verbally consented to treatment: Yes Patient verbally consented to billing insurance company: Yes Patient informed of any privacy concerns related to visit: Yes Minutes spent on Phone/Video with Pt.: 15 Assessment & Plan Assessment & Plan (1) Panniculitis: Code(s): M79.3 - Panniculitis, unspecified Category: Medical (2) S/P laparoscopic sleeve gastrectomy: Code(s): Z98.84 - Bariatric surgery status Category: Surgical Plan Pt has done very well maintaining weight loss 2.5 years after sleeve, no surgical complications. She has ongoing issues of excess skin of abdomen, causing painful malodorous rashes refractory to topical Rx treatment. Excess skin is also causing limitation and discomfort of range of motion, including walking, bending, and exercise which is necessary to maintain her excellent weight loss. She would benefit from panniculectomy for definitive treatment. Will send a second longer course of PO antifungals in attempt to improve persistent rashes refractory to topical rx treatment. RTC 1 month to monitor issues of excess skin. Patient is at healthy BMI but with ongoing issues of excess skin of abdomen, and is not considered stable at this time. I spent a total of 30 minutes reviewing/updating records, examining the patient and counseling the patient on weight management as detailed above.
== END 2024-04-04 11:18 | disposition home or self-care (01) ==
LOC: HO.HBS 11:09
PROVIDERS: PCP Nurse Practitioner Family; Referring Provider Nurse Practitioner Family; Visit Provider Physician Assistant Surgical
DX: M79.3 Panniculitis, unspecified (principal); Z90.3 Acquired absence of stomach [part of]; Z98.84 Bariatric surgery status
CPT/HCPCS: 99214

== ENCOUNTER → 2024-04-04 11:09 | Outpatient (BNVA) | payer OTHER, SELFPAY | PROVIDERS: PCP Nurse Practitioner Family; Visit Provider Physician Assistant Surgical ==

== ENCOUNTER 2024-04-28 11:01 | Outpatient (AMB) | payer OTHER, SELFPAY ==
--- NOTE | 2024-04-28 10:53 | A.OFFVIS_ITS ---
VS Expanded 04/28/24 11:04 Height 5 ft 4.5 in Weight 133 lb BMI 22.5 Intake Visit Reasons: PO LSG 08/13/21 Allergies No Known Allergies Allergy (Verified 02/16/24 10:16) Medication List - Last Reconciled 04/28/24 by PRASANNA Chery [baraitric MVI PO DAILY] [Oh +D PO BID] clotrimazole 1% (Antifungal (clotrimazole)) 1 appl topical BID esterified estrogens 2 mg PO DAILY fluconazole 200 mg PO .weekly turmeric mg PO HPI Comments Details: Pt presents in follow up for issues of excess skin. Weight stable since last visit. Breakfast: Zone bar lunch: Premier shake dinner: protein and veg/salad sometimes snacks on almonds or prunes Vitamins: once daily bariatric multivitamin taking bariatric choice with 45mg iron plus a calcium by [facility]. Exercise: works with a life skills trainer on weight training.?goes about 4-5x per week Pt continues to have difficulty with excess skin of abdomen. Uses clotrimazole ointment for excess skin of abdomen to prevent painful rashes. She notices a lot of moisture that collects in skin fold of abdomen, which has an unpleasant odor and she has to wash frequently. Has to clean belly button very frequently with a cotton tipped swab. Has to wear compressive clothing to prevent friction; if she does not wear compressive clothing she has a lot of discomfort with the excess skin moving during exercise and her range of motion can be limited. Activities of daily living are more difficult due to excess skin as it can get in the way of activities like walking and bending over and become very uncomfortable. After last visit, due to worsening rashes, pt was given a second longer course of PO antifungals with higher dose. She reports that this still did not resolve the rashes. [facility] Medical History Steatosis, liver Pulmonary nodule Pericardial cyst along right cardiophrenic angle Adjustment disorder, unspecified GERD (gastroesophageal reflux disease) Hyperlipidemia Hypertension Obesity Surgical History Hx of hysterectomy History of sleeve gastrectomy Hx of cataract surgery Hx of dilation and curettage Hx of colonoscopy Family History Mother Afib Father No problems noted. Brother No problems noted. Brother No problems noted. Brother No problems noted. Son No problems noted. Daughter No problems noted. 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 home: Yes (children) Do you presently have visiting nurse or other home services: No Alcohol intake: former Year quit: 2021 Comment: aware of trip hazard Patient Tobacco Use Status: Never used Tobacco service: No Current occupational status: employed Telehealth Telehealth Telehealth Platform: Telephone Location of provider rendering services: other Location of patient: address on file Patient Identification confirmed using: Name, : Yes Telehealth method: voice only Patient verbally consented to treatment: Yes Patient verbally consented to billing insurance company: Yes Patient informed of any privacy concerns related to visit: Yes Minutes spent on Phone/Video with Pt.: 12 Assessment & Plan Assessment & Plan (1) Panniculitis: Code(s): M79.3 - Panniculitis, unspecified Category: Medical (2) Excess skin: Code(s): L98.7 - Excessive and redundant skin and subcutaneous tissue Category: Medical (3) S/P laparoscopic sleeve gastrectomy: Code(s): Z98.84 - Bariatric surgery status Category: Surgical Plan Pt has done very well maintaining weight loss 2.5 years after sleeve, no surgical complications. She has ongoing issues of excess skin of abdomen, causing painful malodorous rashes refractory to topical Rx treatment and has now been refractory to two courses of PO antifungal treatment. Excess skin is also causing limitation and discomfort of range of motion, including walking, bending, and exercise which is necessary to maintain her excellent weight loss. She would benefit from panniculectomy for definitive treatment. Will resubmit to insurance company for approval of panniculectomy. Patient is at healthy BMI but with ongoing issues of excess skin of abdomen, and is not considered stable at this time. I spent a total of 30 minutes reviewing/updating records, examining the patient and counseling the patient on weight management as detailed above.
[2024-04-28 11:04] VITALS: BMI 22.5
== END 2024-04-28 11:08 | disposition home or self-care (01) ==
LOC: HO.HBS 11:01
PROVIDERS: PCP Nurse Practitioner Family; Referring Provider Nurse Practitioner Family; Visit Provider Physician Assistant Surgical
DX: M79.3 Panniculitis, unspecified (principal); L98.7 Excessive and redundant skin and subcutaneous tissue; Z98.84 Bariatric surgery status
CPT/HCPCS: 99214

== ENCOUNTER → 2024-04-28 11:01 | Outpatient (BNVA) | payer OTHER, SELFPAY | PROVIDERS: PCP Nurse Practitioner Family; Visit Provider Physician Assistant Surgical ==

== ENCOUNTER 2024-05-16 08:15 | Outpatient (AMB) | payer OTHER, SELFPAY ==
[2024-05-16 16:55] VITALS: BMI 22.5
--- NOTE | 2024-05-16 16:55 | A.OFFVIS_ITS ---
VS Expanded 05/16/24 16:55 Height 5 ft 4.5 in Weight 133 lb BMI 22.5 Intake Visit Reasons: TV Pre Op Panniculectomy 05/19/24 Allergies No Known Allergies Allergy (Verified 05/16/24 17:15) Medication List - Last Reconciled 05/16/24 by Saleem Farah MD [baraitric MVI 1 tab PO DAILY] [Oh +D PO BID] cephalexin 500 mg PO Q12H clotrimazole 1% (Antifungal (clotrimazole)) 1 appl topical BID docusate sodium (Colace) 100 mg PO DAILY estradiol 2 mg PO DAILY turmeric 500 mg PO DAILY HPI HPI TV Pre Op Panniculectomy 05/19/24: Details: Start time: 4.45pm, End time: 5.15pm I spent 25 minutes speaking with the patient on the phone plus an additional 5 minutes reviewing and updating records for a total of 30 minutes HPI Comments Details: Overall weight loss: 102.6lbs, or 43.55% TBWL Is doing one premade or powdered Premier protein shake per day, a Zone Perfect protein bar and a meal Exercise: weight lifting PFSH Medical History Steatosis, liver Pulmonary nodule Pericardial cyst along right cardiophrenic angle Adjustment disorder, unspecified GERD (gastroesophageal reflux disease) Hyperlipidemia Hypertension Obesity Surgical History (Updated 05/16/24 @ 12:01 by Esther Kasper RN) Hx of hysterectomy (~12/2022) History of sleeve gastrectomy Hx of cataract surgery Hx of dilation and curettage Hx of colonoscopy Family History Mother Afib Father No problems noted. Brother No problems noted. Brother No problems noted. Brother No problems noted. Son No problems noted. Daughter No problems noted. Social History (Updated 05/16/24 @ 12:01 by Esther Kasper, CHUCK) Household Members: Significant Other and Family Housing: House Are you a primary pharmacy care coordinator to a significant other at home: No Do you presently have visiting nurse or other home services: No 75 years or older and lives alone: No Alcohol intake: former Year quit: 2021 Comment: aware of trip hazard Patient Tobacco Use Status: Never used Tobacco Use of substances other than those prescribed or required for medical reasons: No Advance Directives: No Advance Directives Information Provided: Yes Advance Directives on File: No Healthcare Proxy: No service: No Current occupational status: employed Telehealth Telehealth Telehealth Platform: Telephone Location of provider rendering services: practice address Location of patient: address on file Patient Identification confirmed using: Name, : Yes Telehealth method: voice only Patient verbally consented to treatment: Yes Patient verbally consented to billing insurance company: Yes Patient informed of any privacy concerns related to visit: Yes Minutes spent on Phone/Video with Pt.: 30 Assessment & Plan Assessment & Plan (1) Excess skin: Code(s): L98.7 - Excessive and redundant skin and subcutaneous tissue Category: Medical Plan: 1. Plan for panniculectomy. Risks of infection, bleeding, asymmetry, wound dehiscence and blood clots were discussed with the patient. 2. You will have a drain the abdomen that may stay a few weeks before it may be removed 3. You will need to be doing sponge baths the first 1-2 weeks. No showers. You need to have help at home to get you up and limit your activities as much as possible for at least the 4-6 weeks after surgery 4. We will arrange for a visiting nurse to come at home to help you with dressing changes and send me pictures of the procedures. We will send at your home supplies for the dressing changes. 5. Change nutritional plan to either one premade Premier shake, one Zone Perfect protein bar and one meal at 5pm-5pm (6 forks of protein and 6 forks of salad or vegetables), or two powdered Premier protein shakes (1 scoop each in 8oz almond milk), one Zone Perfect protein bar and one meal. This will improve weight loss and healing after surgery. 6. Continue all vitamins 7. Risks and complications were discussed the possibility of bleeding that may require transfusion, loss of the umbilicus, wound dehiscence or infection, dog ears , flap asymmetry. We also discussed the importance of strict avoidance of weight lifting. 8. Avoid aspirin, motrin, ibuprofen, Aleve, Advil, Naproxyn. Only Tylenol is OK 9. Do blood work not fasting any day between Thursday05/17/24 and Thursday05/20/24 and draft roller picker the antibiotic prescription from your pharmacy Orders: Orders Prothrombin Time INR Today K91.2 - Postsurgical malabsorption, not elsewhere classified, Z90.3 - Acquired absence of stomach [part of] Comprehensive Met. Panel Today K91.2 - Postsurgical malabsorption, not elsewhere classified, Z90.3 - Acquired absence of stomach [part of] TSH reflex Free T4 Today K91.2 - Postsurgical malabsorption, not elsewhere classified, Z90.3 - Acquired absence of stomach [part of] Vitamin A Today K91.2 - Postsurgical malabsorption, not elsewhere classified, Z90.3 - Acquired absence of stomach [part of] Vitamin B1 Today K91.2 - Postsurgical malabsorption, not elsewhere classified, Z90.3 - Acquired absence of stomach [part of] Type and Screen Today K91.2 - Postsurgical malabsorption, not elsewhere classified, Z90.3 - Acquired absence of stomach [part of] Vitamin D 25-OH Total Today K91.2 - Postsurgical malabsorption, not elsewhere classified, Z90.3 - Acquired absence of stomach [part of] Ferritin Today K91.2 - Postsurgical malabsorption, not elsewhere classified, Z90.3 - Acquired absence of stomach [part of] IRON PROFILE Today K91.2 - Postsurgical malabsorption, not elsewhere classified, Z90.3 - Acquired absence of stomach [part of] Hemoglobin A1c Today K91.2 - Postsurgical malabsorption, not elsewhere classified, Z90.3 - Acquired absence of stomach [part of] Lipid Panel Today K91.2 - Postsurgical malabsorption, not elsewhere classified, Z90.3 - Acquired absence of stomach [part of] Vitamin B12 Today K91.2 - Postsurgical malabsorption, not elsewhere classified, Z90.3 - Acquired absence of stomach [part of] C Reactive Protein Today K91.2 - Postsurgical malabsorption, not elsewhere classified, Z90.3 - Acquired absence of stomach [part of] Partial Thromboplastin Time Today K91.2 - Postsurgical malabsorption, not elsewhere classified, Z90.3 - Acquired absence of stomach [part of] Complete Blood Count Auto Diff Today K91.2 - Postsurgical malabsorption, not elsewhere classified, Z90.3 - Acquired absence of stomach [part of] Zinc Today K91.2 - Postsurgical malabsorption, not elsewhere classified, Z90.3 - Acquired absence of stomach [part of] Medications: New cephalexin 500 mg PO Q12H 60 caps 2RF M79.3 - Panniculitis, unspecified docusate sodium (Colace) 100 mg PO DAILY 90 caps 0RF K59.00 - Constipation, unspecified
== END 2024-05-16 18:15 | disposition home or self-care (01) ==
LOC: HO.HBS 08:15
PROVIDERS: PCP Nurse Practitioner Family; Visit Provider Surgery
DX: L98.7 Excessive and redundant skin and subcutaneous tissue (principal)
CPT/HCPCS: 99499

== ENCOUNTER → 2024-05-16 08:15 | Outpatient (BNVA) | payer OTHER, SELFPAY | PROVIDERS: PCP Nurse Practitioner Family; Visit Provider Surgery ==

== ENCOUNTER 2024-05-17 07:58 | Outpatient (REF) | payer OTHER, SELFPAY ==
[2024-05-17 08:31] LABS: MANUAL DIFF FLAG NO
[2024-05-17 08:45] LABS: Basophils Percent Auto 0.4 % (0-2); Eosinophils Absolute Auto 0.1 X10*3/uL (0.0-0.4); Eosinophils Percent Auto 1.3 % (0-4); Hematocrit 41.7 % (37.0-47.0); Hemoglobin 14.4 g/dl (12.0-16.0); Imm Gran Abs Auto 0.01 X10*3/uL (0.00-0.03); Imm Gran Pct Auto 0.2 % (0.0-0.4); Lymphocytes Absolute Auto 1.6 X10*3/uL (1.2-4.9); Lymphocytes Percent Auto 33.9 % (20-40); Mean Corpuscular HGB Conc 34.5 g/dl (31.0-35.0); Mean Corpuscular Hemoglobin 30.9 pg (27.0-33.0); Mean Corpuscular Volume 89.5 fL (80.0-98.0); Mean Platelet Volume 10.7 fL (9.4-12.3); Monocytes Absolute Auto 0.4 X10*3/uL (0.1-1.2); Monocytes Percent Auto 8.2 % (2-11); Neutrophils Absolute Auto 2.6 x10*3/uL (2.0-8.3); Platelet Count 202 X10*3/uL (160-400); Red Blood Count 4.66 X10*6/uL (4.20-5.50); Red Cell Distribution Width 12.1 % (11.0-16.0); White Blood Count 4.7 X10*3/uL (4.8-10.8)
[2024-05-17 08:51] LABS: Estimated Average Glucose 103 mg/dL; Hemoglobin A1c % 5.2 % (<6.0)
[2024-05-17 09:00] LABS: INTERNATIONAL NORM RATIO 0.9 (0.9-1.1); Prothrombin Time 11.3 SEC (11.1-13.3)
[2024-05-17 09:17] LABS: Alanine Aminotransferase 24 U/L (0-31); Albumin Level 4.3 g/dL (3.5-5.0); Alkaline Phosphatase 79 U/L (39-117); Anion Gap 11 (12-20); Aspartate Amino Transferase 25 U/L (5-31); Bilirubin Total 1.4 mg/dL (0.0-1.0); Blood Urea Nitrogen 18 mg/dL (9-16); C Reactive Protein 0.36 mg/dL (< or = 0.50); Calcium 9.9 mg/dL (8.4-10.2); Carbon Dioxide 29 mmol/L (22-29); Chloride 106 mmol/L (96-108); Cholesterol 168 mg/dL (<200); Estimated Glomerular Filt Rate > 60; Glucose Random 90 mg/dL (60-115); HDL Cholesterol 63 mg/dL (>40); Iron 99 mcg/dL (30-160); LDL Cholesterol Calculated 95 mg/dL (<100); Percent Iron Saturation 39 % (15-50); Potassium 4.2 mmol/L (3.3-5.1); Sodium 142 mmol/L (135-145); Total Iron Binding Capacity 256 mcg/dL (228-428); Total Protein 7.5 g/dL (6.5-8.0); Triglycerides 51 mg/dL (<150); Unsaturated Iron Binding 157 ug/dL
[2024-05-17 09:35] LABS: Ferritin 184 ng/mL (10-250); TSH reflex Free T4 1.08 uIU/mL (0.32-4.0); Vitamin D 25-OH Total 66.2 ng/mL (>30)
[2024-05-17 09:40] LABS: Vitamin B12 1380 pg/mL (200-900)
[2024-05-22 00:47] LABS: Zinc 67 mcg/dL (60-130)
[2024-05-23 17:48] LABS: Vitamin A 48 mcg/dL (38-98)
[2024-05-24 06:29] LABS: Vitamin B1 21 nmol/L (8-30)
== END 2024-05-17 07:59 | disposition home or self-care (01) ==
LOC: HO.LAB 07:58
PROVIDERS: PCP Nurse Practitioner Family; Visit Provider Surgery
DX: K91.2 Postsurgical malabsorption, not elsewhere classified (principal); Z90.3 Acquired absence of stomach [part of]
CPT/HCPCS: 36415; 80053; 80061; 82306; 82607; 82728; 83036; 83540; 84425; 84443; 84590; 84630; 85025; 85610; 85730; 86140

== ENCOUNTER 2024-05-19 10:47 | Day surgery (SDC) | payer OTHER, SELFPAY ==
[2024-05-16 11:57] VITALS: BMI 22.8
--- NOTE | 2024-05-17 14:45 | HO.ANESPROP2 ---
HPI - Anesthesia Eval Consult details Narrative: 59yo F for Panniculectomy s/p sleeve 2020 with GETA 7.5 PMFSH Active Problems Active Problems: All Active Problems Panniculitis (Acute) Excess skin (Acute) Overweight (BMI 25.0-29.9) (Acute) BMI 32.0-32.9,adult (Acute) BMI 34.0-34.9,adult (Acute) BMI over 35 (Acute) History of repair of hiatal hernia (Acute) Paraesophageal hiatal hernia (Acute) S/P laparoscopic sleeve gastrectomy (Acute) Nausea (Acute) BMI over 35 (Acute) Lung density on x-ray (Acute) Hypertension (Acute) Hyperlipidemia (Acute) Steatosis, liver (Acute) GERD (gastroesophageal reflux disease) (Acute) Obesity (Acute) Past Medical History Medical History Steatosis, liver Pulmonary nodule Pericardial cyst along right cardiophrenic angle Adjustment disorder, unspecified GERD (gastroesophageal reflux disease) Hyperlipidemia Hypertension Obesity Family History Family History Mother Afib Father No problems noted. Brother No problems noted. Brother No problems noted. Brother No problems noted. Son No problems noted. Daughter No problems noted. Family history of problems with anesthesia: No Surgical History Surgical History (Updated 05/16/24 @ 12:01 by Esther Kasper RN) Hx of hysterectomy (~12/2022) History of sleeve gastrectomy Hx of cataract surgery Hx of dilation and curettage Hx of colonoscopy History of Problems with Anesthesia: No Social History Social History (Updated 05/16/24 @ 12:01 by Esther Kasper RN) Household Members: Significant Other and Family Housing: House Are you a primary neonatal intensive care nurse to a significant other at home: No Do you presently have visiting nurse or other home services: No 75 years or older and lives alone: No Alcohol intake: former Year quit: 2021 Comment: aware of trip hazard Patient Tobacco Use Status: Never used Tobacco service: No Current occupational status: employed Meds Allergies Allergy/AdvReac Type Severity Reaction Status Date / Time No Known Allergies Allergy Verified 05/16/24 17:15 Home Medications ?Medication ?Instructions ?Recorded ?Confirmed ?Last Taken ?Type Oh +D PO BID 03/28/22 06/24/24 Unknown History baraitric MVI 1 tab PO DAILY 02/17/22 05/16/24 Unknown History turmeric 400 mg capsule 500 mg PO DAILY 02/16/24 05/16/24 Unknown History estradiol 2 mg tablet 2 mg PO DAILY 05/16/24 05/16/24 Unknown History Exam Height,Weight and Vital Signs: Height 5 ft 4 in Weight 60.328 kg Pertinent Lab Results Pertinent Lab Results: Laboratory Tests 05/17/24 08:19 Blood Type B Positive Antibody Screen NEGATIVE Laboratory Tests 05/17/24 08:29 WBC 4.7 L Hgb 14.4 Hct 41.7 Plt Count 202 Sodium 142 Potassium 4.2 Chloride 106 Carbon Dioxide 29 BUN 18 H Creatinine 0.88 Assessment and Plan Assessment Anesthesia Assessment: Chart Reviewed Final Anesthetic Review Family History of Problems with Anesthesia: No History of Problems with Anesthesia: No
[2024-05-19] VITALS (12 sets, daily range): BP systolic 98–131; BP diastolic 55–76; PULSE 45–78; RESP 12–19; TEMP 36.4–36.7; O2SAT 97–99; BMI 22.4
[2024-05-19] MEDS: Lactated Ringers 1,000 ML 100 ML IVCONT (11:16)
--- NOTE | 2024-05-19 12:16 | HO.ANESPROP2 ---
[facility] Active Problems Active Problems: All Active Problems Panniculitis (Acute) Excess skin (Acute) Overweight (BMI 25.0-29.9) (Acute) BMI 32.0-32.9,adult (Acute) BMI 34.0-34.9,adult (Acute) BMI over 35 (Acute) History of repair of hiatal hernia (Acute) Paraesophageal hiatal hernia (Acute) S/P laparoscopic sleeve gastrectomy (Acute) Nausea (Acute) BMI over 35 (Acute) Lung density on x-ray (Acute) Hypertension (Acute) Hyperlipidemia (Acute) Steatosis, liver (Acute) GERD (gastroesophageal reflux disease) (Acute) Obesity (Acute) Past Medical History Medical History Steatosis, liver Pulmonary nodule Pericardial cyst along right cardiophrenic angle Adjustment disorder, unspecified GERD (gastroesophageal reflux disease) Hyperlipidemia Hypertension Obesity Functional capacity: independent ambulation Patient : No Family History Family History Mother Afib Father No problems noted. Brother No problems noted. Brother No problems noted. Brother No problems noted. Son No problems noted. Daughter No problems noted. Family history of problems with anesthesia: No Surgical History Surgical History Hx of hysterectomy (~12/2022) History of sleeve gastrectomy Hx of cataract surgery Hx of dilation and curettage Hx of colonoscopy History of Problems with Anesthesia: No Social History Social History Household Members: Significant Other and Family Housing: House Are you a primary healthcare financial analyst to a significant other at home: No Do you presently have visiting nurse or other home services: No Alcohol intake: former Year quit: 2021 Comment: aware of trip hazard Patient Tobacco Use Status: Never used Tobacco Use of substances other than those prescribed or required for medical reasons: No Have you been hit, kicked, punched, or otherwise hurt by someone within the past year? If so, by whom?: No Are you DNR?: No Advance Directives: No Advance Directives Information Provided: Yes Advance Directives on File: No Recently lost weight without trying: No Poor oral hygiene: No service: No Current occupational status: employed Meds Allergies Allergy/AdvReac Type Severity Reaction Status Date / Time No Known Allergies Allergy Verified 05/19/24 11:11 Active Medications: Current Medications Lactated Ringer's (Lr) 1,000 mls @ 100 mls/hr IVCONT .Q10H DILIP Last Admin: 05/19/24 11:16 Dose: 100 mls/hr Lactated Ringer's (Lr) 1,000 mls @ 100 mls/hr IVCONT .Q10H [facility] Home Medications ?Medication ?Instructions ?Recorded ?Confirmed ?Last Taken ?Type Oh +D PO BID 02/17/22 05/16/24 Unknown History baraitric MVI 1 tab PO DAILY 02/17/22 05/16/24 Unknown History turmeric 400 mg capsule 500 mg PO DAILY 02/16/24 05/16/24 Unknown History estradiol 2 mg tablet 2 mg PO DAILY 05/16/24 05/16/24 Unknown History Exam Height,Weight and Vital Signs: Height 5 ft 4 in Weight 59.33 kg Last Vital Signs Temp 98.1 F 05/19/24 11:20 Pulse 45 L 05/19/24 11:20 Resp 18 05/19/24 11:20 BP 131/76 05/19/24 11:20 Pulse Ox 99 05/19/24 11:20 O2 Del Method Room Air 05/19/24 11:20 Pertinent Lab Results Pertinent Lab Results: Laboratory Tests 05/17/24 08:19 Blood Type B Positive Antibody Screen NEGATIVE Airway Mallampati Class: II TM Dist: >3cm Neck ROM: Full Heart: RRR Lungs: CTA Assessment and Plan Assessment Anesthesia Assessment: Anesthesia Plan Discussed Final Anesthetic Review Family History of Problems with Anesthesia: No History of Problems with Anesthesia: No NPO: Yes ASA Class: II Final Preanesthetic Review: Meds/Allgs Chart Reviewed, Consent Obtained/Reviewed and Anes Risks/Benef Reviewed Patient Risk: Low Procedure Risk: Low Anesthetic Plan Anesthetic Plan: GA Disposition: Standard PACU
[2024-05-19] MEDS: Aprepitant 32 MG/4.4 ML VIAL IVPUSH (12:28)
--- NOTE | 2024-05-19 13:06 | MHC.SHP ---
Pre-Procedural Eval Section A - 24 Hr Update-Section A only Date of Service: 05/19/24 The patient is an INPATIENT: No The patient has been examined within 24 hours of the surgical procedure. The History & Physical has been completed within 30 days and I have reviewed it.: Yes Section B - Complete if H&P > 30 days Chief Complaint: Panniculitis, Relevant Family History (Specify if Yes): No Relevant Social History: None Present Medications: None Medical History: No relevant PMH History of Previous Operations: No relevant previous surgery Allergies: Allergies Allergy/AdvReac Type Severity Reaction Status Date / Time No Known Allergies Allergy Verified 05/19/24 11:11 Review of Systems Sugical H&P ROS: Negative: Constitution, Cardiovascular, Respiratory, Neurological, Psychiatric, Hem-Onc, Allergic/Immunologic, Gastrointestinal, Genitourinary, Musculoskeletal, Integumentary, Endocrine and Eyes/Ears/Nose/Throat Exam Surgical H&P Exam: Normal: HEENT, Normal: Heart, Normal: Lungs, Normal: Extremities, Normal: Abdomen, Normal: Skin and Normal: Neurological Plan Diagnosis/Plan: Unchanged I have reviewed the history and physical and performed a pertinent physical examination on my patient. No changes have occurred unless specified. Time Spent With Patient Time: Total time managing care of this patient today ____ minutes.
--- NOTE | 2024-05-19 13:07 | PM.OP ---
Brief Operative Note Date of Service: 05/19/24 Pre-op diagnosis: Excess skin Post-op diagnosis: same Procedure: PROCEDURE: Panniculectomy with umbilical transposition and bilateral subcutaneous fat flaps INDICATION: This a 59 year old female who underwent laparoscopic sleeve gastrectomy on 08/13/2021. She had an excellent result achieving a BMI of 22.5 kg/m2 with a total weight loss of 102.6lbs, or 43.6% of her TBWL. As a result, she has developed panniculitis which has not resolved despite continuous use of clotrimazole ointment as well as skin irritation. On exam she has extreme skin laxity due to massive weight loss, with the abdominal pannus completely hanging 4cm below the pubis. Panniculectomy was recommended. We discussed the two options for the panniculectomy of using a combined vertical and horizontal incisions or just a horizontal (bikini) incision. It was my recommendation to do only horizontal incision based on her body habitus and skin laxity. The patient agreed with this. Risks and complications were discussed with the patient including bleeding, infection, umbilical loss, flap necrosis, asymmetry, dehiscence, seroma, VTE. The patient understood the risks and was in agreement to proceed with surgery. PROCEDURE: The incisions were appropriately marked at the preop area with the patient standing and laying down. After induction of general anesthesia a Romo catheter and pneumatic compression devices were placed. The patient was prepped and draped in the usual sterile manner and the incisions were marked again and confirmed. The skin was infiltrated with lidocaine and epinephrine. The #10 blade scalpel was used for the large incisions and the #15 blade scalpel for the umbilicus. Cautery was used to divide the subcutaneous tissues until the fascia was identified. Then I used the cautery to separate the pannus from the fascia. The inferior incision was made initially and I mobilized the flap for a several centimeters cephalad to the umbilicus. The umbilicus was incised circumferentially and detached from the surrounding tissues all the way to the fascia while its stalk was preserved. With the patient in reflex position I confirmed that the skin flaps were appropriate and would allow for the tissues to come together with reasonable tension. At that point a horizontal incision was made 4 cm above the umbilicus. #10 blade was used for the skin, cautery for the dermis and for the remaining tissues. A subcutaneous fat flap was raised from the upper skin flap in order to fill the space under the skin and support the closure of the two flaps. In addition the inferior flap was mobilized caudally for a few centimeters to create a space for the subcutaneous fat flap as well as relieve tension from the closure. A circumferential incision was made at the area where the umbilicus would be re-implanted. The umbilicus was appropriately oriented and was delivered through the defect and was secured in place with a Tay. No bleeding was noted anywhere. One LUIS drain was placed from the left corner of the horizontal incision across the wound and was secured in place with a silk suture. A total of 7ml of Zynrelef was applied on top of the fascia and under the subcutaneous fat flaps. The subcutaneous fat flap was secured under the inferior flap with several interrupted 3.0 Monocryl sutures. The two flaps were brought together and were attached at the midline of the horizontal incision with a #3.0 Monocryl suture. At that point the umbilicus was properly oriented and was re-approximated to the skin with 8 interrupted 3.0 Monocryl sutures. In a similar fashion the skin flaps were re-approximated with multiple 3.0 Monocryl sutures. The skin was closed in all incisions and umbilicus with 4.0 Monocryl sutures. Steri-strips, xeroform gauzes and gauzes were used to cover the incisions. An abdominal binder was also placed. The was awaken and was transferred to the recover room in a stable condition. I was present and performed the entire procedure. Mr Penn was the first responder. Presley Farah MD, PhD, FACS Surgeon: Saleem Farah MD Surgeon: Saleem Farah MD Anesthesia: GETA, local and other (7ml Zynrelef) Was an Operator Electronic Warfare used for this Procedure?: No Operator Electronic Warfare: Beau Penn Estimated blood loss (mL): 10 IV fluids (mL): 1,800 Urine output (mL): 0 (No Romo to record output) Pathology: other (abdominal pannus) Condition: stable Disposition: PACU
--- NOTE | 2024-05-19 13:12 | PC.NURSE ---
dr. elam aware of pulse of 42-45. patient states this is her baseline. ok to proceed. no interventions at this time.
[2024-05-19] MEDS: droPERidol 5 MG/2 ML VIAL 0.625 MG IVPUSH (17:54)
== END 2024-05-19 19:23 | disposition home or self-care (01) ==
PROVIDERS: PCP Nurse Practitioner Family; Visit Provider Surgery
PROC: 0JB80ZZ Excision of Abdomen Subcutaneous Tissue and Fascia, Open Approach (ICD-10-PCS; CPT 15830; principal; 2024-05-19 13:00)
DX: M79.3 Panniculitis, unspecified (principal); L98.7 Excessive and redundant skin and subcutaneous tissue; Z90.3 Acquired absence of stomach [part of]; K91.2 Postsurgical malabsorption, not elsewhere classified; Z98.84 Bariatric surgery status; K21.9 Gastro-esophageal reflux disease without esophagitis; E66.9 Obesity, unspecified; Z68.22 Body mass index [BMI] 22.0-22.9, adult; I10 Essential (primary) hypertension; E78.5 Hyperlipidemia, unspecified; R91.1 Solitary pulmonary nodule; K76.0 Fatty (change of) liver, not elsewhere classified; K59.00 Constipation, unspecified; Z79.899 Other long term (current) drug therapy
CPT/HCPCS: 15830; 15847; 86850; 86900; 86901; 88304; C9088; C9145; J0131; J0690; J1100; J1790; J2250; J2405; J2704; J3010; J3370

== ENCOUNTER → 2024-05-19 10:47 | Outpatient (BNV) | payer OTHER, SELFPAY | PROVIDERS: PCP Nurse Practitioner Family; Visit Provider Surgery | DX: M79.3 Panniculitis, unspecified (principal) | CPT/HCPCS: 15830 ==

== ENCOUNTER 2024-05-24 11:35 | Outpatient (AMB) | payer OTHER, SELFPAY ==
--- NOTE | 2024-05-24 12:03 | MHC.OFFVISWM ---
VS Expanded 05/24/24 12:05 BP 138/81 Blood Pressure Location Rt brachial Blood Pressure Position Sitting Pulse 75 Pulse Source Pulse Oximeter Temp 95.4 F L Temperature Source Tympanic Pulse Oximetry 98 Oxygen Delivery Method Room Air Intake Visit Reasons: (OV) s/p Panniculectomy 05/19/24 Allergies No Known Allergies Allergy (Verified 05/24/24 12:06) Medication List - Last Reconciled 05/24/24 by PRASANNA Chery [baraitric MVI 1 tab PO DAILY] [Oh +D PO BID] docusate sodium (Colace) 100 mg PO DAILY estradiol 2 mg PO DAILY fluconazole 150 mg PO Q3D 2 doses turmeric 500 mg PO DAILY HPI Comments Details: Pt is s/p panniculectomy 05/19/2024. Drain output has been between 30-40cc/day. Pt changing dressings herself daily and sending photos to Dr. Mcdermott Pain well controlled. Wearing abdominal binder. Complains of vaginal yeast infection symptoms. [facility] Medical History Steatosis, liver Pulmonary nodule Pericardial cyst along right cardiophrenic angle Adjustment disorder, unspecified GERD (gastroesophageal reflux disease) Hyperlipidemia Hypertension Obesity Surgical History Hx of hysterectomy (~12/2022) History of sleeve gastrectomy Hx of cataract surgery Hx of dilation and curettage Hx of colonoscopy Family History Mother Afib Father No problems noted. Brother No problems noted. Brother No problems noted. Brother No problems noted. Son No problems noted. Daughter No problems noted. Social History Household Members: Significant Other and Family Housing: House Are you a primary health care coordinator to a significant other at home: No Do you presently have visiting nurse or other home services: No 75 years or older and lives alone: No Alcohol intake: former Year quit: 2021 Comment: aware of trip hazard Patient Tobacco Use Status: Never used Tobacco Use of substances other than those prescribed or required for medical reasons: No Advance Directives: No Advance Directives Information Provided: Yes Advance Directives on File: No Healthcare Proxy: No service: No Current occupational status: employed Physical Exam Vital Signs: Last Vital Signs Temp 95.4 F L 05/24/24 12:05 Pulse 75 05/24/24 12:05 BP 138/81 05/24/24 12:05 Pulse Ox 98 05/24/24 12:05 Oxygen Delivery Method Room Air 05/24/24 12:05 Const General: cooperative, comfortable and no acute distress Orientation/consciousness: patient oriented x3 GI Other: soft, nontender, nondistended, no hernia, no masses, steri-strips c/d/i, viable umbilicus, drain output sanguinous Neuro General: patient oriented x3 Assessment & Plan Assessment & Plan (1) S/P laparoscopic sleeve gastrectomy: Code(s): Z98.84 - Bariatric surgery status Category: Surgical (2) S/P panniculectomy: Code(s): Z98.890 - Other specified postprocedural states Category: Surgical Plan Continue high protein diet. ABX keflex 500 BID x 2 weeks, extended as needed?(at least until drain comes out plus 1 week).? Drain out after consistently 20 mL or less daily.? Abdominal binder at all times except for care x 1 month?MINIMUM. If there are concerns longer.? No driving?until drain out.? No walking outside or exercise for 6 weeks minimum. Walking in the house after 1st appt if we are satisfied with progress. Assistance getting up for 4 weeks minimum.?No lifting greater than?10 pounds x 2 months and no abdominal exercises x 3 months. Fluconazole PO rx sent for yeast infection. RTC 1 week. Patient is at healthy and is not considered stable at this time. I spent a total of [] minutes reviewing/updating records, examining the patient and counseling the patient on weight management as detailed above. Medications: New fluconazole 150 mg PO Q3D 2 tabs 0RF
[2024-05-24 12:05] VITALS: BP 138/81; PULSE 75; TEMP 35.2; O2SAT 98
== END 2024-05-24 12:20 | disposition home or self-care (01) ==
PROVIDERS: PCP Nurse Practitioner Family; Visit Provider Physician Assistant Surgical
DX: L98.7 Excessive and redundant skin and subcutaneous tissue (principal); Z48.817 Encounter for surgical aftercare following surgery on the skin and subcutaneous tissue; Z98.890 Other specified postprocedural states
CPT/HCPCS: 99024

== ENCOUNTER → 2024-05-24 11:35 | Outpatient (BNVA) | payer OTHER, SELFPAY | PROVIDERS: PCP Nurse Practitioner Family; Visit Provider Physician Assistant Surgical | DX: Z48.817 Encounter for surgical aftercare following surgery on the skin and subcutaneous tissue (principal); Z90.3 Acquired absence of stomach [part of] | CPT/HCPCS: 99212 ==

== ENCOUNTER 2024-06-01 16:13 | Outpatient (AMB) | payer OTHER, SELFPAY ==
--- NOTE | 2024-06-01 16:14 | A.OFFVIS_ITS ---
VS Expanded 06/01/24 16:20 BP 120/70 Blood Pressure Location Rt brachial Blood Pressure Position Sitting Pulse 54 Pulse Source Pulse Oximeter Temp 97.8 F Temperature Source Temporal Artery Scan Pulse Oximetry 99 Oxygen Delivery Method Room Air Intake Visit Reasons: (OV) s/p Panniculectomy 05/19/24 Allergies No Known Allergies Allergy (Verified 06/01/24 16:21) HPI Comments Details: Patient is a pleasant 59-year-old female who returns to the office today in follow-up. She is status post panniculectomy performed on 05/19/2024. She reports continued antibiotic use and following the meal plan. She reports approximately 20 mL of serous sanguinous fluid from the collection bulb. She offers no complaints. She is very happy with the results. [facility] Medical History Steatosis, liver Pulmonary nodule Pericardial cyst along right cardiophrenic angle Adjustment disorder, unspecified GERD (gastroesophageal reflux disease) Hyperlipidemia Hypertension Obesity Surgical History (Updated 06/01/24 @ 16:21 by Monica Cunha CMA) S/P panniculectomy Hx of hysterectomy (~12/2022) History of sleeve gastrectomy Hx of cataract surgery Hx of dilation and curettage Hx of colonoscopy Family History Mother Afib Father No problems noted. Brother No problems noted. Brother No problems noted. Brother No problems noted. Son No problems noted. Daughter No problems noted. Social History Household Members: Significant Other and Family Housing: House Are you a primary career placement specialist to a significant other at home: No Do you presently have visiting nurse or other home services: No 75 years or older and lives alone: No Alcohol intake: former Year quit: 2021 Comment: aware of trip hazard Patient Tobacco Use Status: Never used Tobacco service: No Current occupational status: employed Physical Exam Vital Signs: Last Vital Signs Temp 97.8 F 06/01/24 16:20 Pulse 54 06/01/24 16:20 BP 120/70 06/01/24 16:20 Pulse Ox 99 06/01/24 16:20 Oxygen Delivery Method Room Air 06/01/24 16:20 Skin Other: Transverse incision and umbilical incisions all healing nicely. Umbilicus is viable. Approximately 15 mL of serosanguineous fluid within the collection bulb. Assessment & Plan Assessment & Plan (1) S/P panniculectomy: Code(s): Z98.890 - Other specified postprocedural states Category: Surgical Plan: Continue current meal plan. Continue antibiotics. Continue monitoring drain output and return to the office in 1 week
[2024-06-01 16:20] VITALS: BP 120/70; PULSE 54; TEMP 36.6; O2SAT 99
== END 2024-06-01 16:39 | disposition home or self-care (01) ==
PROVIDERS: PCP Nurse Practitioner Family; Visit Provider Physician Assistant Surgical
DX: Z98.890 Other specified postprocedural states (principal)
CPT/HCPCS: 99024

== ENCOUNTER → 2024-06-01 16:13 | Outpatient (BNVA) | payer OTHER, SELFPAY | PROVIDERS: PCP Nurse Practitioner Family; Visit Provider Physician Assistant Surgical | DX: Z48.89 Encounter for other specified surgical aftercare (principal) | CPT/HCPCS: 99212 ==

== ENCOUNTER 2024-06-09 15:45 | Outpatient (AMB) | payer OTHER, SELFPAY ==
[2024-06-09 15:54] VITALS: BP 134/75; PULSE 65; TEMP 36; O2SAT 95
--- NOTE | 2024-06-09 15:54 | MHC.OFFVISWM ---
VS Expanded 06/09/24 15:54 BP 134/75 Blood Pressure Location Rt brachial Blood Pressure Position Sitting Pulse 65 Pulse Source Pulse Oximeter Temp 96.8 F Temperature Source Temporal Artery Scan Pulse Oximetry 95 Oxygen Delivery Method Room Air Intake Visit Reasons: (OV) s/p Panniculectomy 05/19/24 Allergies No Known Allergies Allergy (Verified 06/01/24 16:21) HPI Comments Details: Patient is a pleasant 59-year-old female who is status post panniculectomy performed on 05/19/2024. Overall, she is doing well. She reports approximately 15 mL of serosanguineous fluid from the collection bulb. No complaints of pain. Complaints of mild fullness to the suprapubic region but no pain. She is following the meal plan and taking the antibiotics. COUNT INCLUDES THE [facility] Medical History Steatosis, liver Pulmonary nodule Pericardial cyst along right cardiophrenic angle Adjustment disorder, unspecified GERD (gastroesophageal reflux disease) Hyperlipidemia Hypertension Obesity Surgical History S/P panniculectomy Hx of hysterectomy (~12/2022) History of sleeve gastrectomy Hx of cataract surgery Hx of dilation and curettage Hx of colonoscopy Family History Mother Afib Father No problems noted. Brother No problems noted. Brother No problems noted. Brother No problems noted. Son No problems noted. Daughter No problems noted. Social History Household Members: Significant Other and Family Housing: House Are you a primary child care provider to a significant other at home: No Do you presently have visiting nurse or other home services: No 75 years or older and lives alone: No Alcohol intake: former Year quit: 2021 Comment: aware of trip hazard Patient Tobacco Use Status: Never used Tobacco service: No Current occupational status: employed Physical Exam Vital Signs: Last Vital Signs Temp 96.8 F 06/09/24 15:54 Pulse 65 06/09/24 15:54 BP 134/75 06/09/24 15:54 Pulse Ox 95 06/09/24 15:54 Oxygen Delivery Method Room Air 06/09/24 15:54 Skin Other: Transverse incision and umbilical incision healing nicely. Mild fullness to the suprapubic region without fluctuance or tenderness Assessment & Plan Assessment & Plan (1) S/P panniculectomy: Code(s): Z98.890 - Other specified postprocedural states Category: Surgical Plan: Patient reassured that the suprapubic fullness is normal postoperatively. Recommend continue with the drain, antibiotics, dressings, meal plan. Plan for drain removal next week if continued minimal output.
== END 2024-06-09 16:32 | disposition home or self-care (01) ==
PROVIDERS: PCP Nurse Practitioner Family; Visit Provider Physician Assistant Surgical
DX: Z98.890 Other specified postprocedural states (principal)
CPT/HCPCS: 99024

== ENCOUNTER → 2024-06-09 15:45 | Outpatient (BNVA) | payer OTHER, SELFPAY | PROVIDERS: PCP Nurse Practitioner Family; Visit Provider Physician Assistant Surgical | DX: Z48.815 Encounter for surgical aftercare following surgery on the digestive system (principal); Z90.49 Acquired absence of other specified parts of digestive tract | CPT/HCPCS: 99212 ==

== ENCOUNTER 2024-06-15 13:48 | Outpatient (AMB) | payer OTHER, SELFPAY ==
--- NOTE | 2024-06-15 13:49 | A.OFFVIS_ITS ---
VS Expanded 06/15/24 14:03 BP 122/68 Blood Pressure Location Rt brachial Blood Pressure Position Sitting Pulse 68 Pulse Source Pulse Oximeter Temp 96.5 F L Temperature Source Tympanic Pulse Oximetry 99 Oxygen Delivery Method Room Air Intake Visit Reasons: (OV) s/p Panniculectomy 05/19/24 Allergies No Known Allergies Allergy (Verified 06/15/24 14:06) HPI Comments Details: Patient is a pleasant 59-year-old female who returns to the office today in follow-up. She is status post panniculectomy performed on 05/19/2024. She continues the meal plan as directed by Dr. Farah and taking her antibiotics. Reports approximately 10 mL of fluid from the collection bulb daily for the last 4 5 days. [facility] Medical History Steatosis, liver Pulmonary nodule Pericardial cyst along right cardiophrenic angle Adjustment disorder, unspecified GERD (gastroesophageal reflux disease) Hyperlipidemia Hypertension Obesity Surgical History S/P panniculectomy Hx of hysterectomy (~12/2022) History of sleeve gastrectomy Hx of cataract surgery Hx of dilation and curettage Hx of colonoscopy Family History Mother Afib Father No problems noted. Brother No problems noted. Brother No problems noted. Brother No problems noted. Son No problems noted. Daughter No problems noted. Social History Household Members: Significant Other and Family Housing: House Are you a primary spiritual care coordinator to a significant other at home: No Do you presently have visiting nurse or other home services: No 75 years or older and lives alone: No Alcohol intake: former Year quit: 2021 Comment: aware of trip hazard Patient Tobacco Use Status: Never used Tobacco service: No Current occupational status: employed Physical Exam Vital Signs: Last Vital Signs Temp 96.5 F L 06/15/24 14:03 Pulse 68 06/15/24 14:03 BP 122/68 06/15/24 14:03 Pulse Ox 99 06/15/24 14:03 Oxygen Delivery Method Room Air 06/15/24 14:03 Skin Other: Transverse and umbilical incisions healing very nicely. Approximately 5 mL and collection bulb of serous fluid Assessment & Plan Assessment & Plan (1) S/P panniculectomy: Code(s): Z98.890 - Other specified postprocedural states Category: Medical Plan: Drain removed Continue antibiotics for 2 more weeks. Continue abdominal binder May shower in 2 days Return to clinic 1 week
[2024-06-15 14:03] VITALS: BP 122/68; PULSE 68; TEMP 35.8; O2SAT 99
== END 2024-06-15 14:25 | disposition home or self-care (01) ==
PROVIDERS: PCP Nurse Practitioner Family; Visit Provider Physician Assistant Surgical
DX: Z98.890 Other specified postprocedural states (principal)
CPT/HCPCS: 99024

== ENCOUNTER → 2024-06-15 13:48 | Outpatient (BNVA) | payer OTHER, SELFPAY | PROVIDERS: PCP Nurse Practitioner Family; Visit Provider Physician Assistant Surgical | DX: Z48.817 Encounter for surgical aftercare following surgery on the skin and subcutaneous tissue (principal); Z98.890 Other specified postprocedural states | CPT/HCPCS: 99212 ==

== ENCOUNTER 2024-06-22 09:47 | Outpatient (AMB) | payer OTHER, SELFPAY ==
[2024-06-22 09:59] VITALS: BP 112/70; PULSE 61; TEMP 35.1; O2SAT 99
--- NOTE | 2024-06-22 09:59 | MHC.OFFVISWM ---
VS Expanded 06/22/24 09:59 BP 112/70 Blood Pressure Location Rt brachial Blood Pressure Position Sitting Pulse 61 Pulse Source Pulse Oximeter Temp 95.2 F L Temperature Source Temporal Artery Scan Pulse Oximetry 99 Oxygen Delivery Method Room Air Intake Visit Reasons: (OV) s/p Panniculectomy 05/19/24 Allergies No Known Allergies Allergy (Verified 06/22/24 10:00) HPI Comments Details: Patient is a pleasant 59-year-old female who returns to the office today in follow-up. She is status post panniculectomy on 05/19/2024. She had her drain removed last week. Has no complaints today. She is scheduled to go to [place] on Thursday. She continues her antibiotics and following the meal plans. [facility] Medical History Steatosis, liver Pulmonary nodule Pericardial cyst along right cardiophrenic angle Adjustment disorder, unspecified GERD (gastroesophageal reflux disease) Hyperlipidemia Hypertension Obesity Surgical History S/P panniculectomy Hx of hysterectomy (~12/2022) History of sleeve gastrectomy Hx of cataract surgery Hx of dilation and curettage Hx of colonoscopy Family History Mother Afib Father No problems noted. Brother No problems noted. Brother No problems noted. Brother No problems noted. Son No problems noted. Daughter No problems noted. Social History Household Members: Significant Other and Family Housing: House Are you a primary director of medicare to a significant other at home: No Do you presently have visiting nurse or other home services: No 75 years or older and lives alone: No Alcohol intake: former Year quit: 2021 Comment: aware of trip hazard Patient Tobacco Use Status: Never used Tobacco service: No Current occupational status: employed Physical Exam Vital Signs: Last Vital Signs Temp 95.2 F L 06/22/24 09:59 Pulse 61 06/22/24 09:59 BP 112/70 06/22/24 09:59 Pulse Ox 99 06/22/24 09:59 Oxygen Delivery Method Room Air 06/22/24 09:59 Skin Other: Well healing transverse and umbilical incision. Umbilicus is viable Assessment & Plan Assessment & Plan (1) S/P panniculectomy: Code(s): Z98.890 - Other specified postprocedural states Category: Surgical Plan: Continue to follow meal plan as directed by Dr. Farah. Continue antibiotics for 1 more week. Continue to wear abdominal binder. She may walk while in [place] but no significant exercise for another week. Return to the office in 2 weeks.
== END 2024-06-22 10:20 | disposition home or self-care (01) ==
PROVIDERS: PCP Nurse Practitioner Family; Visit Provider Physician Assistant Surgical
DX: Z98.890 Other specified postprocedural states (principal)
CPT/HCPCS: 99024

== ENCOUNTER → 2024-06-22 09:47 | Outpatient (BNVA) | payer OTHER, SELFPAY | PROVIDERS: PCP Nurse Practitioner Family; Visit Provider Physician Assistant Surgical | DX: Z48.815 Encounter for surgical aftercare following surgery on the digestive system (principal); Z98.890 Other specified postprocedural states | CPT/HCPCS: 99212 ==

== ENCOUNTER 2024-07-05 11:16 | Outpatient (AMB) | payer OTHER, SELFPAY ==
--- NOTE | 2024-07-05 11:17 | A.OFFVIS_ITS ---
VS Expanded 07/05/24 11:30 BP 113/74 Blood Pressure Location Rt brachial Blood Pressure Position Sitting Pulse 58 Pulse Source Pulse Oximeter Temp 94.6 F L Temperature Source Temporal Artery Scan Pulse Oximetry 99 Oxygen Delivery Method Room Air Intake Visit Reasons: (OV) s/p Panniculectomy 05/19/24 Allergies No Known Allergies Allergy (Verified 07/05/24 11:31) HPI Comments Details: Very pleasant 59-year-old female who returns to the office today in follow-up. She is status post panniculectomy on 05/19/2024. She has returned from [place] and had a wonderful vacation. She denies any complaints at today's visit. [facility] Medical History Steatosis, liver Pulmonary nodule Pericardial cyst along right cardiophrenic angle Adjustment disorder, unspecified GERD (gastroesophageal reflux disease) Hyperlipidemia Hypertension Obesity Surgical History S/P panniculectomy Hx of hysterectomy (~12/2022) History of sleeve gastrectomy Hx of cataract surgery Hx of dilation and curettage Hx of colonoscopy Family History Mother Afib Father No problems noted. Brother No problems noted. Brother No problems noted. Brother No problems noted. Son No problems noted. Daughter No problems noted. Social History Household Members: Significant Other and Family Housing: House Are you a primary acute care nurse practitioner to a significant other at home: No Do you presently have visiting nurse or other home services: No 75 years or older and lives alone: No Alcohol intake: former Year quit: 2021 Comment: aware of trip hazard Patient Tobacco Use Status: Never used Tobacco service: No Current occupational status: employed Physical Exam Vital Signs: Last Vital Signs Temp 94.6 F L 07/05/24 11:30 Pulse 58 07/05/24 11:30 BP 113/74 07/05/24 11:30 Pulse Ox 99 07/05/24 11:30 Oxygen Delivery Method Room Air 07/05/24 11:30 Skin Other: Well healing transverse abdominal incision. Umbilicus is viable. Assessment & Plan Assessment & Plan (1) S/P panniculectomy: Code(s): Z98.890 - Other specified postprocedural states Category: Surgical Plan: Patient is doing very well overall. She has returned to using the treadmill at the gym although walking at a speed of 1.5. She continues to wear her abdominal binder. She may increase the speed of the treadmill to 2 in approximately 2 weeks. She may additionally use 2 lb hand weights for bicep and tricep workout while seated with the use of the abdominal binder on during exercise. She will continue her current meal plan and return to the office in approximately 1 month
[2024-07-05 11:30] VITALS: BP 113/74; PULSE 58; TEMP 34.8; O2SAT 99
== END 2024-07-05 11:55 | disposition home or self-care (01) ==
PROVIDERS: PCP Nurse Practitioner Family; Visit Provider Physician Assistant Surgical
DX: Z98.890 Other specified postprocedural states (principal)
CPT/HCPCS: 99024

== ENCOUNTER → 2024-07-05 11:16 | Outpatient (BNVA) | payer OTHER, SELFPAY | PROVIDERS: PCP Nurse Practitioner Family; Visit Provider Physician Assistant Surgical | DX: Z48.817 Encounter for surgical aftercare following surgery on the skin and subcutaneous tissue (principal); E66.9 Obesity, unspecified; Z90.3 Acquired absence of stomach [part of] | CPT/HCPCS: 99212 ==

== ENCOUNTER 2024-08-26 09:49 | Outpatient (AMB) | payer OTHER, SELFPAY ==
--- NOTE | 2024-08-26 09:56 | A.OFFVIS_ITS ---
VS Expanded 08/26/24 10:05 BP 142/76 H Blood Pressure Location Rt brachial Blood Pressure Position Sitting Pulse 51 Pulse Source Pulse Oximeter Temp 96.3 F L Temperature Source Temporal Artery Scan Pulse Oximetry 99 Oxygen Delivery Method Room Air Height 5 ft 4.5 in Weight 128 lb 12.8 oz BMI 21.8 Body Fat % 22.8 Body Fat Mass 29.4 Fat Free Mass 99.4 Visceral Fat Rating 5.0 Body Water % 54.6 Body Water Mass 70.4 Muscle Mass/Score 94.4 Basal Metabolic Rate/Score 1,310 Intake Visit Reasons: (OV) s/p Panniculectomy 05/19/24 Allergies No Known Allergies Allergy (Verified 08/26/24 10:05) HPI Comments Details: This?a?59?yo female who is s/p LSG without hiatal hernia repair on?08/13/[address] Farah. Presents for 3 year post op visit. She also underwent panniculectomy on 05/19/2024. Weight today is 128.8 pounds, with a BMI today of 22.1. No complaints of nausea, emesis, abdominal pain or reflux. Reports infrequent but normal bowel movements every 2-3 days and uses fiber chews and stool softeners regularly. Present meal plan includes: One ready to drink Premier protein shake Zone perfect bar 1 shake and 2 meals (4 forks protein and 4 forks veg) Drinking 48 oz water daily ? Exercise routine includes: 4-5 days weekly 500 calories treadmill. now doing weight training daily. Any post op complications: None SOPHY: Never DM: Never HTN: Resolved Hyperlipidemia: Resolved GERD:?0-5 scale ??0 = no symptoms ??1 = symptoms noticeable but not bothersome 2 =symptoms bothersome but not daily ? 3 = symptoms bothersome and daily 4 = symptoms affect daily activities 5 = symptoms are incapacitating, unable to do daily activities ? How bad is the heartburn: 0 ? Heartburn while lying down: 0 ? Heartburn when standing up: 0 ? Heartburn after meals: 0 ? Does heartburn change your diet: 0 ? Does heartburn wake you up from sleep: 0 ? Do you have difficulty swallowin ? Do you have pain with swallowin ? If you take medicine for your reflux, does this affect your daily life: 0 Satisfaction with present condition - satisfied or not satisfied: Satisfied COUNT INCLUDES THE [facility] Medical History Steatosis, liver Pulmonary nodule Pericardial cyst along right cardiophrenic angle Adjustment disorder, unspecified GERD (gastroesophageal reflux disease) Hyperlipidemia Hypertension Obesity Surgical History S/P panniculectomy Hx of hysterectomy (~12/2022) History of sleeve gastrectomy Hx of cataract surgery Hx of dilation and curettage Hx of colonoscopy Family History Mother Afib Father No problems noted. Brother No problems noted. Brother No problems noted. Brother No problems noted. Son No problems noted. Daughter No problems noted. Social History Household Members: Significant Other and Family Housing: House Are you a primary health care facility administrator to a significant other at home: No Do you presently have visiting nurse or other home services: No 75 years or older and lives alone: No Alcohol intake: former Year quit: 2021 Comment: aware of trip hazard Patient Tobacco Use Status: Never used Tobacco service: No Current occupational status: employed Physical Exam Const General: healthy appearing and no acute distress Resp Effort & Inspection: normal respiratory effort Cardio Rate: regular rate GI Inspection: Yes incision (Well healed) Extrem General: Yes normal to inspection Assessment & Plan Assessment & Plan (1) S/P laparoscopic sleeve gastrectomy: Code(s): Z98.84 - Bariatric surgery status Category: Surgical Plan: She is at a stable and healthy weight. She is very aware of her meal plan and is following it closely. She did state that the zone perfect bars are no longer readily available. Suggested aloha bar or possibly built bar. We will have her return to the office in approximately 6 months with the understanding that she will text or call sooner should there be any questions or concerns. Additionally, check yearly follow-up labs. Orders: Orders Insulin Today Z98.84 - Bariatric surgery status Hemoglobin A1c Today Z98.84 - Bariatric surgery status Lipid Panel Today Z98.84 - Bariatric surgery status IRON PROFILE Today Z98.84 - Bariatric surgery status Comprehensive Met. Panel Today Z98.84 - Bariatric surgery status Vitamin B12 and Folate Today Z98.84 - Bariatric surgery status C Reactive Protein Today Z98.84 - Bariatric surgery status Complete Blood Count Auto Diff Today Z98.84 - Bariatric surgery status Zinc Today Z98.84 - Bariatric surgery status Vitamin B1 Today Z98.84 - Bariatric surgery status Vitamin A Today Z98.84 - Bariatric surgery status TSH reflex Free T4 Today Z98.84 - Bariatric surgery status Ferritin Today Z98.84 - Bariatric surgery status Vitamin D 25-OH Total Today Z98.84 - Bariatric surgery status
[2024-08-26 10:05] VITALS: BP 142/76; PULSE 51; TEMP 35.7; O2SAT 99; BMI 21.8
== END 2024-08-26 10:26 | disposition home or self-care (01) ==
PROVIDERS: PCP Nurse Practitioner Family; Referring Provider Nurse Practitioner Family; Visit Provider Physician Assistant Surgical
DX: L98.7 Excessive and redundant skin and subcutaneous tissue (principal); Z98.84 Bariatric surgery status
CPT/HCPCS: 99213; G2211

== ENCOUNTER → 2024-08-26 09:49 | Outpatient (BNVA) | payer OTHER, SELFPAY | PROVIDERS: PCP Nurse Practitioner Family; Visit Provider Physician Assistant Surgical | DX: Z71.3 Dietary counseling and surveillance (principal); Z98.84 Bariatric surgery status | CPT/HCPCS: 99212 ==

== ENCOUNTER 2024-10-08 08:08 | Outpatient (REF) | payer OTHER, SELFPAY ==
[2024-10-08 08:43] LABS: MANUAL DIFF FLAG NO
[2024-10-08 08:55] LABS: Basophils Absolute Auto 0.1 X10*3/uL (0.0-0.2); Basophils Percent Auto 1.3 % (0-2); Eosinophils Absolute Auto 0.1 X10*3/uL (0.0-0.4); Eosinophils Percent Auto 1.9 % (0-4); Hematocrit 40.1 % (37.0-47.0); Hemoglobin 14.1 g/dl (12.0-16.0); Imm Gran Abs Auto 0.01 X10*3/uL (0.00-0.03); Imm Gran Pct Auto 0.2 % (0.0-0.4); Lymphocytes Absolute Auto 1.9 X10*3/uL (1.2-4.9); Lymphocytes Percent Auto 40.7 % (20-40); Mean Corpuscular HGB Conc 35.2 g/dl (31.0-35.0); Mean Corpuscular Hemoglobin 31.2 pg (27.0-33.0); Mean Corpuscular Volume 88.7 fL (80.0-98.0); Mean Platelet Volume 9.9 fL (9.4-12.3); Monocytes Absolute Auto 0.5 X10*3/uL (0.1-1.2); Monocytes Percent Auto 9.7 % (2-11); Neutrophils Absolute Auto 2.1 x10*3/uL (2.0-8.3); Neutrophils Percent Auto 46.2 % (45-73); Platelet Count 215 X10*3/uL (160-400); Red Blood Count 4.52 X10*6/uL (4.20-5.50); Red Cell Distribution Width 12.1 % (11.0-16.0); White Blood Count 4.6 X10*3/uL (4.8-10.8)
[2024-10-08 09:45] LABS: Alanine Aminotransferase 29 U/L (0-31); Alkaline Phosphatase 71 U/L (39-117); Anion Gap 9 (12-20); Aspartate Amino Transferase 27 U/L (5-31); Bilirubin Total 1.4 mg/dL (0.0-1.0); Blood Urea Nitrogen 18 mg/dL (9-16); C Reactive Protein 0.21 mg/dL (< or = 0.50); Calcium 9.6 mg/dL (8.4-10.2); Carbon Dioxide 30 mmol/L (22-29); Chloride 108 mmol/L (96-108); Cholesterol 168 mg/dL (<200); Estimated Glomerular Filt Rate > 60; Glucose Random 89 mg/dL (60-115); HDL Cholesterol 63 mg/dL (>40); Iron 161 mcg/dL (30-160); LDL Cholesterol Calculated 95 mg/dL (<100); Percent Iron Saturation 60 % (15-50); Potassium 4.5 mmol/L (3.3-5.1); Sodium 142 mmol/L (135-145); Total Iron Binding Capacity 267 mcg/dL (228-428); Triglycerides 51 mg/dL (<150); Unsaturated Iron Binding 106 ug/dL
[2024-10-08 10:06] LABS: Folate 13.8 ng/mL (> or = 4.0); Vitamin B12 1107 pg/mL (200-900)
[2024-10-08 10:08] LABS: Ferritin 148 ng/mL (10-250); TSH reflex Free T4 0.77 uIU/mL (0.32-4.0); Vitamin D 25-OH Total 60.7 ng/mL (>30)
[2024-10-08 11:02] LABS: Estimated Average Glucose 105 mg/dL; Hemoglobin A1C 123.1852 umol/L; Hemoglobin A1c % 5.3 % (<6.0); Total Hemoglobin (HGBA1C) 3636.1236 umol/L
[2024-10-08 14:14] LABS: Insulin 2 uU/mL (2-29)
[2024-10-11 22:03] LABS: Zinc 64 mcg/dL (60-130)
[2024-10-13 17:54] LABS: Vitamin A 45 mcg/dL (38-98)
[2024-10-14 16:09] LABS: Vitamin B1 22 nmol/L (8-30)
== END 2024-10-08 08:09 | disposition home or self-care (01) ==
LOC: HO.LAB 08:08
PROVIDERS: Physician Assistant Surgical; PCP Nurse Practitioner Family; Referring Provider Nurse Practitioner Family; Visit Provider Pediatrics
DX: Z98.84 Bariatric surgery status (principal)
CPT/HCPCS: 36415; 80053; 80061; 82306; 82607; 82728; 82746; 83036; 83525; 83540; 84425; 84443; 84590; 84630; 85025; 86140

== ENCOUNTER 2024-11-28 10:00 | Outpatient (AMB) | payer OTHER, SELFPAY ==
--- NOTE | 2024-11-28 09:41 | A.OFFVIS_ITS ---
VS Expanded 11/28/24 09:42 Height 5 ft 4.5 in Weight 126 lb 8 oz BMI 21.4 Body Fat % 24.4 Fat Free Mass 96 Visceral Fat Rating 4 Body Water % 51.9 Muscle Mass/Score 90.2 Basal Metabolic Rate/Score 1,308 Intake Visit Reasons: (TV) PO LSG 08/13/21 Care Taker Required: No Allergies No Known Allergies Allergy (Verified 08/26/24 10:05) Medication List - Last Reconciled 11/28/24 by PRASANNA Vick [baraitric MVI 1 tab PO DAILY] [Oh +D PO BID] turmeric 500 mg PO DAILY HPI Comments Details: This?a?59?yo female who is s/p LSG without hiatal hernia repair on?08/13/[address] Farah. Presents for 3 year 3 month post op visit. She also underwent panniculectomy on 05/19/2024. Weight today is 126.8 pounds, with a BMI today of 21.4. No complaints of nausea, emesis, abdominal pain or reflux. Reports infrequent but normal bowel movements every 2-3 days and uses fiber chews and stool softeners regularly. She is dealing with her mom moving into her house Present meal plan includes: One ready to drink Premier protein shake aloha/built bar 1 shake and 2 meals (4 forks protein and 4 forks veg) Drinking 32 oz water daily Exercise routine includes: 1-2 times per week 4-5 days weekly 500 calories treadmill. now doing weight training daily. [facility] Medical History Steatosis, liver Pulmonary nodule Pericardial cyst along right cardiophrenic angle Adjustment disorder, unspecified GERD (gastroesophageal reflux disease) Hyperlipidemia Hypertension Obesity Surgical History S/P panniculectomy Hx of hysterectomy (~12/2022) History of sleeve gastrectomy Hx of cataract surgery Hx of dilation and curettage Hx of colonoscopy Family History Mother Afib Father No problems noted. Brother No problems noted. Brother No problems noted. Brother No problems noted. Son No problems noted. Daughter No problems noted. Social History Household Members: Significant Other and Family Housing: House Are you a primary interior plant caretaker to a significant other at home: No Do you presently have visiting nurse or other home services: No 75 years or older and lives alone: No Alcohol intake: former Year quit: 2021 Comment: aware of trip hazard Patient Tobacco Use Status: Never used Tobacco service: No Current occupational status: employed Telehealth Telehealth Telehealth Platform: Telephone Location of provider rendering services: practice address Location of patient: address on file Patient Identification confirmed using: Name, : Yes Telehealth method: voice only Patient verbally consented to treatment: Yes Patient verbally consented to billing insurance company: Yes Patient informed of any privacy concerns related to visit: Yes Minutes spent on Phone/Video with Pt.: 15 Assessment & Plan Assessment & Plan (1) S/P laparoscopic sleeve gastrectomy: Code(s): Z98.84 - Bariatric surgery status Category: Surgical Plan: Patient is doing well from a weight perspective. She has had increased stress as her [id number] a couple of months ago and her mom is moving into her house. She has not had time to exercise much, perhaps once or twice per week. She hopes that with the sale of her mother's house over the next couple of weeks she will be able to return to the gym more consistently. In the meantime, she is very pleased with her meal plan and does not wish to change. She is very aware of her weight, meal plan and exercise routines. We will have her return to the office as scheduled. Encouraged to text with any questions or concerns.
[2024-11-28 09:42] VITALS: BMI 21.4
== END 2024-11-28 10:23 | disposition home or self-care (01) ==
LOC: HO.HBS 10:17
PROVIDERS: PCP Nurse Practitioner Family; Visit Provider Physician Assistant Surgical
DX: Z71.3 Dietary counseling and surveillance (principal); Z90.3 Acquired absence of stomach [part of]; Z98.84 Bariatric surgery status
CPT/HCPCS: 98012

== ENCOUNTER 2025-03-20 09:53 | Outpatient (AMB) | payer OTHER, SELFPAY ==
--- NOTE | 2025-03-20 09:59 | MHC.OFFVISWM ---
VS Expanded 03/20/25 10:21 BP 127/82 Blood Pressure Location Rt brachial Blood Pressure Position Sitting Pulse 47 L Pulse Source Pulse Oximeter Temp 97.0 F Temperature Source Temporal Artery Scan Pulse Oximetry 100 Oxygen Delivery Method Room Air Height 5 ft 4.5 in Weight 128 lb BMI 21.6 Body Fat % 22.4 Body Fat Mass 28.6 Fat Free Mass 99.2 Visceral Fat Rating 5.0 Body Water % 55.0 Body Water Mass 70.4 Muscle Mass/Score 94.2 Basal Metabolic Rate/Score 1,307 Intake Visit Reasons: (OV) PO LSG 08/13/21 Allergies No Known Allergies Allergy (Verified 03/20/25 10:10) HPI Comments Details: This?a?59?yo female who is s/p LSG without hiatal hernia repair on?08/13/[address] Farah. Presents for 3 year 7 month post op visit. She also underwent panniculectomy on 05/19/2024. Weight today is 128 pounds, with a BMI today of 21.6. No complaints of nausea, emesis, abdominal pain or reflux. Reports infrequent but normal bowel movements every 2-3 days and uses fiber chews and stool softeners regularly. Initial weight upon entry to the [facility] was 241 pounds. She is very happy with her progress and meal plan. Present meal plan includes: 1/2 ready to drink Premier protein shake aloha/built bar meal (5 forks protein and 5 forks veg) Drinking 32 oz water daily Exercise routine includes: 1-2 times per week 5 days weekly 500 calories treadmill. now doing weight training daily. [facility] Medical History Steatosis, liver Pulmonary nodule Pericardial cyst along right cardiophrenic angle Adjustment disorder, unspecified GERD (gastroesophageal reflux disease) Hyperlipidemia Hypertension Obesity Surgical History S/P panniculectomy Hx of hysterectomy (~12/2022) History of sleeve gastrectomy Hx of cataract surgery Hx of dilation and curettage Hx of colonoscopy Family History Mother Afib Father No problems noted. Brother No problems noted. Brother No problems noted. Brother No problems noted. Son No problems noted. Daughter No problems noted. Social History Household Members: Significant Other and Family Housing: House Are you a primary director of patient care to a significant other at home: No Do you presently have visiting nurse or other home services: No 75 years or older and lives alone: No Alcohol intake: former Year quit: 2021 Comment: aware of trip hazard Patient Tobacco Use Status: Never used Tobacco service: No Current occupational status: employed Physical Exam Const General: healthy appearing and no acute distress Resp Effort & Inspection: normal respiratory effort Auscultation: clear to auscultation bilaterally Cardio Rate: regular rate Rhythm: regular rhythm GI Auscultation: normal bowel sounds Extrem General: Yes normal to inspection Assessment & Plan Assessment & Plan (1) S/P laparoscopic sleeve gastrectomy: Code(s): Z98.84 - Bariatric surgery status Category: Surgical Plan: Overall doing very well. Has achieved a healthy weight and healthy lifestyle. Does not wish to change her meal plan at this time. Exercising appropriately. Follow-up in the office in late July
[2025-03-20 10:21] VITALS: BP 127/82; PULSE 47; TEMP 36.1; O2SAT 100; BMI 21.6
--- OUTSIDE RECORDS SUMMARY | 2025-03-20 11:17 | XMS_ITS | Encounter Summary ---
Author Organization [facility] Address [address] [place] [address] Phone Care Team Providers Care Application Packaging Specialist Name Role Phone Jojo Strange CNP Primary Care Provider + [phone] Reason for Visit * Reason Onset Date Comments Appointment 01/11/2025 Encounter Details Date Type Department Care Team ([facility] st Contact Info) Description 01/11/2025 Telephone [facility] [address] [place] [address] Jojo Strange CNP [address] [place] [address] [email or web address] Appointment Social History Tobacco Use Types Packs/Day Years Used Date Smoking Tobacco: Never Passive Smoke Exposure: Past Smokeless Tobacco: Never Alcohol Use Standard Drinks/Week Comments Not Currently 0 (1 standard drink = 0.6 oz pur e alcohol) Child or Family Care Answer Date Record ed Do you have problems with on e of the following making it difficult for you to work, study, or receive health care? No 09/28/2024 Education Answer Date Recorded Are you interested in help w ith more adult education (for example, completing high school, GED, job training, learning the Malaysian language, technical skills, or developing parenting skills)? No 09/28/2024 Are you concerned about learning? Not on file 09/28/2024 No 09/28/2024 Yes 09/28/2024 Food Answer Date Recorded Within the past 6 months we worried whether our food would run out before we got money to buy more. Never True 09/28/2024 Within the past 6 months the food we bought just didn't last and we didn't have enough money to get more. Never True Residential Stability Answer Date Recor ded What is your housing situation today? I have eri burns 09/28/2024 How many times have you move d in the past 12 months? Zero (I did not move) 09/28/2024 Paying for Meds Answer Date Recorded Do you have trouble paying for medicines? No 09/28/2024 Paying Utility Bills Answer Date Record ed Do you have trouble paying your heating or elect ricity bill? No 09/28/2024 Transportation Answer Date Recorded Has the lack of transportati on kept you from medical appointments or from getting medications? No 09/28/2024 Digital Access Answer Date Recorded No 09/28/2024 Yes 09/28/2024 Do you have reliable internet access at home? Ye s 09/28/2024 Do you have a device (e.g., phone, tablet, computer) with a working camera? Yes 09/28/2024 Intimate Partner Violence Answer Date R ecorded Denied Basic Needs Not on file 09/28/2024 In the past 12 months have y ou been in a relationship with a person who hurts, threatens, or tries to control you? No 09/28/2024 Worried food would run out Not on file 09/28 In the past 12 months have y ou been in a relationship with a person who hurts, threatens, or tries to control you? No 09/28/2024 Sex and Gender Information Value Date Recorded Sex Assigned at Female 12/19/2024 5:55 PM EST Gender Identity Female 12/19/2024 5:55 PM EST Sexual Orientation Not on file documented as of this encounter Progress Notes * Brandon Moreno - 01/11/2025 1:58 PM EST Pt called to f/u. Appt rescheduled to new time slot. * Melany Bragg - 01/11/2025 1:48 PM EST LMTCB to r/s * VitocarlyYasemin morales - 01/11/2025 9:57 AM EST Pt called regarding upcoming CPE appt. 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 Please advise. Central Support Appliance Service Supervisor (Please do not reply to this user; this inbox is not monitored.) Thank you. documented in this encounter Plan of Treatment Upcoming Encounters Date Type Department Care Team (Late st Contact Info) Description 03/30/2025 10:00 AM EDT Office Visit [facility] [address] [place] [address] Jojo Strange CNP [address] [address] 04/18/2025 11:00 AM EDT Office Visit [facility] Medicine [address] [place] [address] [place] [address] Leonidas Cam DO 4 [facility] [place] [address] documented as of this encounter Visit Diagnoses Not on filedocumented in this encounter Additional Health Concerns Assessment Noted Time PHQ-2 Depression Total Score: 0 09/28/20 10:09 AM EST documented as of this encounter Care Teams Application Packaging Specialist Relationship Specialty Start Date End Date Jojo Strange CNP [address] [address] PCP - General Nurse Practitioner 09/28/24 documented as of this encounter Additional Source Comments The information contained in this document represents components of the legal health record. It is not the complete legal health record.[facility]
--- OUTSIDE RECORDS SUMMARY | 2025-03-20 11:17 | XMS_ITS | Clinical Summary ---
Author Organization [facility] Address [address] [place] [address] Phone Care Team Providers Care Industrial Psychologist Name Role Phone Jojo Strange LUIS Primary Care Provider +1- [phone] Allergies No known active allergies Medications Medication Sig Dispensed Refills Start Date End Date Status estradioL (ESTRACE) 2 MG tablet Take 2 mg by mouth daily. 04/13/2024 Active therapeutic multivitamin tablet Take 1 tablet by mouth daily. Active Active Problems Problem Noted Date Diagnosed Date Hx of bariatric surgery 09/28/2024 Overview (09/28/2024): 07/2021- Dr. Farah at [facility], gastric sleeve. HTN and hyperlipidemia resolved with weight loss. Assessment & Plan (09/28/2024 3:24 PM EST): She reports she is feeling very well. Continue to follow with Weight Management, remains on bariatric supplement. They continue to monitor labs. Will continue to monitor. Chronic right shoulder pain 09/28/2024 Assessment & Plan (09/28/2024 3:25 PM EST): Shannan is experiencing chronic right shoulder pain. Reports no improvement with home exercises or steroid injection. Placed referral to ortho as requested. Vaginal atrophy 09/28/2024 Encounters Date Type Department Care Team Description 02/20/[address] [facility] Orthopedics Virtual Department [address] [place] [address] Christine Lewis MA Pain (Primary Dx) 01/11/2025 Telephone [facility] [address] [place] [address] Jojo Strange CNP Appointment from Last 3 Months Immunizations Name Administration Dates Next Due Influenza Quadrivalent Prese rvative Free IM 10/05/2020,10/05/2020,08/16/2019,08/22,12/12/2017 Influenza Trivalent w/ Preservative IM 1 Pneumococcal polysaccharide PPSV23 04/30/2017 Tdap 12/19/2020 Zoster recombinant 11/13/2020,11/13/2020, 020 Family History Medical History Relation Comments Cancer Father blood Cystinosis Father Atrial fibrillation Mother Migraines Mother Relation Status Comments Father Mother Social History Tobacco Use Types Packs/Day Years [...] high school, GED, job training, learning the Greek language, technical skills, or developing parenting skills)? [...] your housing situation today? I have eri sing 09/28/2024 How many times have you move [...] PM EST Sexual Orientation Not on file Last Filed Vital Signs Vital Sign Reading Time Taken Comments Blood Pressure 130/70 09/28/2024 10:22 AM EST Pulse 49 09/28/2024 10:22 AM EST Temperature 36.7 ??C (98 ??F) 09/28/2024 10:22 AM EST Respiratory Rate - - Oxygen Saturation 98% 09/28/2024 10:22 AM EST Inhaled Oxygen Concentration - - Weight 59.4 kg (131 lb) 09/28/2024 10:22 AM EST Height 163.8 cm (5' 4.5 ) 09/28/2024 10:22 AM ES T Body Mass Index 22.14 09/28/2024 10:22 AM EST Plan of Treatment Upcoming Encounters Date Type Department Care Team (Late st Contact Info) Description 03/30/2025 10:00 AM EDT Office Visit [facility] [address] [place] [address] Jojo Strange CNP [address] [facility] [place] [address] [email or web address] 04/18/2025 11:00 AM EDT Office Visit [facility] Sports Medicine [address] [place] [address] [place] [address] Leonidas Cam DO [address] [place] [address] Orthopedics & Sports Medicine, [facility] [place] [address] [email or web address] Health Maintenance Due Date Last Done Comments LIPID PANEL 1967 HEPATITIS C SCREENING 1985 HIV ONE-TIME SCREENING (18-6 5 YEARS) 1985 COLOGUARD 2012 COLONOSCOPY 2012 COLORECTAL CANCER SCREENING 2012 FIT TEST 2012 FOBT 2012 SIGMOIDOSCOPY 2012 VIRTUAL COLONOSCOPY 2012 PNEUMOCOCCAL VACCINES (50+ years) (2 of 2 - PCV) 04/30/2018 04/30/2017 COVID-19 VACCINE ( - 2023-2 5 season) 2024 11/30/2021, 07/12/2021 DEPRESSION SCREENING 09/28/2025 09/28/2024 MAMMOGRAM 09/28/2026 09/28/2024 Adult Td,Tdap Booster 12/19/2030 12/19/2020 ZOSTER VACCINES Completed 11/13/2020, 11/13/2020, 09/07/2020 SMOKING STATUS SCREENING (On ce After 26 Yrs) Completed 09/28/2024 HEPATITIS A VACCINES Aged Out No long er eligible based on patient's age to complete this topic HIB VACCINES Aged Out No longer eligi ble based on patient's age to complete this topic MENINGOCOCCAL VACCINES (ACWY) Aged Out No longer eligible based on patient's age to complete this topic Medical Devices Not on file Procedures Procedure Name Priority Date/Time Associated Diagnosis Comments BI MAMMOGRAM SCREENING (BILATERAL) Routine 09/28/2024 10:54 AM EST Screening mammogram for breast cancer from Last 3 Months or Most Recently Relevant to Health Maintenance Care Teams Industrial Psychologist Relationship Specialty Start Date End Date Jojo Strange CNP [address] [place] [address] [address] [place] [address] [email or web address] PCP - General Nurse Practitioner 09/28/24 Additional Source Comments The information contained in this document represents components of the legal health record. It is not the complete legal health record.[facility]
--- OUTSIDE RECORDS SUMMARY | 2025-03-20 11:17 | XMS_ITS | Clinical Summary ---
Author Organization [employer] [facility] Address [address] [facility] [place] [address] Care Team Providers Care Librarian Head Name Role Phone Beau Feldman MD Primary Care Provider + Allergies No known active allergies Medications AFLURIA QUAD , PF, 60 mcg/0.5 mL syrg inject 0.5 milliliter intramuscularly 0 08/22/20 18 Active pravastatin (PRAVACHOL) 20 MG tablet 08/03/20 18 Active clobetasol (TEMOVATE) 0.05 % cream 06/25/20 18 Active DASETTA 1/35, 28, 1-35 mg-mcg tablet 08/23/20 18 Active Social History Tobacco Use Types Packs/Day Years Used Date Smoking Tobacco: Never Smokeless Tobacco: Never Comments No Sex and Gender Information Value Date Recorded Sex Assigned at Not on file Legal Sex Female 4:13 PM EDT Gender Identity Not on file Sexual Orientation Not on file Last Filed Vital Signs Vital Sign Reading Time Taken Comments Blood Pressure 108/62 08/28/2018 9:19 AM EDT Pulse 93 05/07/2021 9:45 AM EDT Temperature 36.7 ??C (98.1 ??F) 05/07/2021 9:45 AM ED T Respiratory Rate 12 08/28/2018 9:19 AM EDT Oxygen Saturation 95% 05/07/2021 9:45 AM EDT Inhaled Oxygen Concentration - - Weight 90.7 kg (200 lb) 08/28/2018 9:19 AM EDT Height 162.6 cm (5' 4 ) 08/28/2018 9:19 AM EDT Body Mass Index 34.33 08/28/2018 9:19 AM EDT Plan of Treatment Health Maintenance Due Date Last Done Comments Colorectal Cancer: COLONOSCO PY Screening every 10 yrs (or Modifier) 1967 Depression: Screening Annual ly using PHQ-2/9 in Adults 18 yrs or above (or HM Modifier)([facility]) 1967 Hepatitis C Virus Infection in Adolescents and Adults: Screening (or Modifier) ([facility]) 1985 [facility] Screening Reminder: Leigh Ann garcias for all adults ([facility]) 1985 Tobacco Smoking Cessation: i n Adults excluding Women: Behavioral and Pharmacotherapy Interventions ([facility]) 1985 DTaP/Tdap/Td Vaccines ([facility]) (1 - Tdap) 1986 Cervical Cancer Screenin 1-65 yrs of age (or Modifier) 1988 Cervical Cancer Screening: P ap every 3 yrs pts age 21-65 1988 Cervical Cancer: Pap Screeni ng with Modifier timing ([facility]) 1988 Cervical Cancer: hrHPV alone or with cotesting Pap for Pts 30-65yrs screening every 5yrs ([facility]) 1988 Colorectal Cancer Screening 45 -75 Yrs (or HM Modifier ) 2012 Colorectal Cancer: FLEXIBLE SIGMOIDOSCOPY Screening every 5 yrs 2012 Colorectal Cancer: Fecal Imm unochemical Test (FIT) Annually [facility] 2012 Colorectal Cancer: High-sens itivity gFOBT Screening Annually [facility] 2012 Colorectal Cancer: Stool Col oguard Screening every 3 yrs 2012 Colorectal Cancer:CT Colonography Screening every 5 yr s 2012 Lipid Screening: Every 5 yrs for Women aged 45+ (or HM Modifier) ([facility]) 2013 Breast Cancer: Screening Leigh Ann garcias age 50-74 yrs (or HM Modifier)([facility]) 2017 Pneumococcal Vaccination Scr eening: Patients 50+ yrs of age ([facility]) (1 of 1 - PCV) 2017 Zoster/Shingles Vaccine Seri es Screening: Adults aged 18+ yrs (or HM Modifiers)([facility]) (1 of 2) 2017 COVID-19 Vaccine Screening: Initial Series and Booster Status ([facility]) ( - 2023- season) 2024 Flu Vaccination: Yearly for ages 18mos through 64 years (or Modifier)([facility]) 06/23/2025 Medical Devices Not on file Insurance [facility] Care Teams Librarian Head Relationship Specialty Start Date End Date Beau Feldman MD [address] [place] [phone] PCP - Abattoir Supervisor 02/06/17
--- OUTSIDE RECORDS SUMMARY | 2025-03-20 11:17 | XMS_ITS | Encounter Summary ---
Author Organization [facility] Address [address] [facility] [address] [place] [address] Phone Care Team Providers Care Innovations Paraprofessional Name Role Phone Jojo Strange LUIS Primary Care Provider + [phone] Encounter Details Date Type Department Care Team (Late st Contact Info) Description 02/20/2025 Orders Only [facility] Orthopedics Virtual Department [address] [place] [address] Christine Lewis MA [address] [place] [id number] Pain (Primary Dx) Social History Tobacco Use Types Packs/Day Years [...] high school, GED, job training, learning the Malawian language, technical skills, or developing parenting skills)? [...] on file documented as of this encounter Plan of Treatment Upcoming Encounters Date Type Department Care Team (Late st Contact Info) Description 03/30/2025 10:00 AM EDT Office Visit [facility] [address] [place] [address] Jojo Strange CNP [address] [facility] [place] [address] 04/18/2025 11:00 AM EDT Office Visit [facility] Orthopedics & Sports Medicine [address] [place] [address] [place] [address] Leonidas Cam DO 4 [facility] [place] [address] [email or web address] Scheduled Orders Name Type Priority Associated Diagnoses Orde r Schedule XR Shoulder (Right) Imaging Routine Pain Expected: 02/28/2025, Expires: 05/22/2025 documented as of this encounter Visit Diagnoses Diagnosis Pain- Primary Generalized pain documented in this encounter Additional Health Concerns Assessment Noted Time PHQ-2 Depression Total Score: 0 09/28/20 10:09 AM EST documented as of this encounter Care Teams Innovations Paraprofessional Relationship Specialty Start Date End Date Jojo Strange CNP [address] [place] [address], [address] [place] [address] [email or web address] PCP - General Nurse Practitioner 09/28/24 documented as of this encounter Additional Source Comments The information contained in this document represents components of the legal health record. It is not the complete legal health record.[facility]
--- OUTSIDE RECORDS SUMMARY | 2025-03-20 11:17 | XMS_ITS | Clinical Summary ---
Author Organization [facility] Address [address] [place] [address] Care Team Providers Care Mannequin Coloring Artist Name Role Phone Unavailable Primary Care Provider Unavailabl e Allergies No known active allergies Medications * This document contains information received from the source organization and may not represent a complete record from that organization. No known medications Immunizations Name Administration Dates Next Due Influenza,injectable,quad,Prsrv Fr 10/05,08/16/2019,08/22/2018, 8 PPV23 (Pneumovax) 04/30/2017 Tdap 12/19/2020 Zoster (Shingrix) 11/13/2020,09/07/2020 Social History Tobacco Use Types Packs/Day Years Used Date Smoking Tobacco: Never Smokeless Tobacco: Never Alcohol Use Standard Drinks/Week Comments Not Asked 0 (1 standard drink = 0.6 oz pur e alcohol) Comments Unknown Sex and Gender Information Value Date Recorded Sex Assigned at Not on file Legal Sex Female 8:31 AM EDT Gender Identity Not on file Sexual Orientation Not on file Last Filed Vital Signs Vital Sign Reading Time Taken Comments Blood Pressure 128/82 03/08/2015 10:19 AM EDT Pulse 80 03/08/2015 10:19 AM EDT Temperature - - Respiratory Rate - - Oxygen Saturation - - Inhaled Oxygen Concentration - - Weight 78.9 kg (174 lb) 03/08/2015 10:19 AM EDT Height 165.1 cm (5' 5 ) 03/08/2015 10:19 AM EDT Body Mass Index 28.96 03/08/2015 10:19 AM EDT Plan of Treatment Health Maintenance Due Date Last Done Comments Hepatitis C Screening 1967 Pap Smear 1983 Hep B (1 of 3 - 19+ 3-dose series) 1986 Mammogram/Breast Imaging 2007 Pneumococcal 50+ years (2 of 2 - PCV) 04/30/2018 04/30/2017 COVID-19 Vaccine ( season) 2024 Influenza (#1) 2024 10/05/2020, 07/25, 08/22/2018, Additional history exists DTaP/Tdap/Td (2 - Td or Tdap) 12/19/2030 12/19/2020 Zoster (Shingrix) Completed 11/13/2020, 09/07/2020 HPV Vaccine Aged Out No longer eligi ble based on patient's age to complete this topic Hep A Aged Out No longer eligi ble based on patient's age to complete this topic Hib Aged Out No longer eligi ble based on patient's age to complete this topic Meningococcal ACWY Aged Out No longer eligible based on patient's age to complete this topic
== END 2025-03-20 10:33 | disposition home or self-care (01) ==
PROVIDERS: PCP Nurse Practitioner Family; Visit Provider Physician Assistant Surgical
DX: Z71.3 Dietary counseling and surveillance (principal); Z98.84 Bariatric surgery status
CPT/HCPCS: 99213

== ENCOUNTER → 2025-03-20 09:53 | Outpatient (BNVA) | payer OTHER, SELFPAY | PROVIDERS: PCP Nurse Practitioner Family; Visit Provider Physician Assistant Surgical | DX: Z98.84 Bariatric surgery status (principal) | CPT/HCPCS: 99212 ==

== ENCOUNTER 2025-08-14 10:18 | Outpatient (AMB) | payer OTHER, SELFPAY ==
--- NOTE | 2025-08-14 10:03 | MHC.OFFVISWM ---
VS Expanded 08/14/25 10:06 Height 5 ft 4.5 in Weight 133 lb BMI 22.5 Intake Visit Reasons: (TV) PO LSG 08/13/21 Allergies No Known Allergies Allergy (Verified 03/20/25 10:10) Medication List - Last Reconciled 08/14/25 by PRASANNA Chery [baraitric MVI 1 tab PO DAILY] [Oh +D PO BID] turmeric 500 mg PO DAILY HPI Comments Details: This a 60 yo female who is s/p LSG 08/13/[address] Farah. Presents for 4 year post op visit. She also underwent panniculectomy on 05/19/2024. Weight today is 133lbs (weight at last visit was 128lbs in February). No complaints of nausea, emesis, abdominal pain or reflux. Initial weight upon entry to the [facility] was 241 pounds. She is very happy with her progress and meal plan. Pt reports she has to have shoulder [facility] ([facility]) in September. Will have to be out of work for 4 months. Also had a breakup of her relationship since last visit, now dating. Present meal plan includes: 1/2 ready to drink Premier protein shake aloha/built bar meal (5 forks protein and 5 forks veg) Drinking 32 oz water daily Exercise routine includes: doing less weight lifting 5 days weekly 500 calories treadmill. now doing weight training daily. [facility] Medical History Steatosis, liver Pulmonary nodule Pericardial cyst along right cardiophrenic angle Adjustment disorder, unspecified GERD (gastroesophageal reflux disease) Hyperlipidemia Hypertension Obesity Surgical History S/P panniculectomy Hx of hysterectomy (~12/2022) History of sleeve gastrectomy Hx of cataract surgery Hx of dilation and curettage Hx of colonoscopy Family History Mother Afib Father No problems noted. Brother No problems noted. Brother No problems noted. Brother No problems noted. Son No problems noted. Daughter No problems noted. Social History Household Members: Significant Other and Family Housing: House Are you a primary pediatric critical care nurse to a significant other at home: No Do you presently have visiting nurse or other home services: No 75 years or older and lives alone: No Alcohol intake: former Year quit: 2021 Comment: aware of trip hazard Patient Tobacco Use Status: Never used Tobacco service: No Current occupational status: employed Telehealth Telehealth Telehealth Platform: Telephone Location of provider rendering services: other Location of patient: address on file Patient Identification confirmed using: Name, : Yes Telehealth method: voice only Patient verbally consented to treatment: Yes Patient verbally consented to billing insurance company: Yes Patient informed of any privacy concerns related to visit: Yes Minutes spent on Phone/Video with Pt.: 14 Assessment & Plan Assessment & Plan (1) S/P laparoscopic sleeve gastrectomy: Code(s): Z98.84 - Bariatric surgery status Category: Surgical (2) S/P panniculectomy: Code(s): Z98.890 - Other specified postprocedural states Category: Surgical Plan Pt is generally happy with her meal plan. She recognizes that her breakup and now dating have led to some weight gain, however she is still well within healthy weight. Annual labs ordered. RTC 6 months. Orders: Orders Vitamin D 25-OH Total Today Z98.84 - Bariatric surgery status TSH reflex Free T4 Today Z.84 - Bariatric surgery status C Reactive Protein Today Z.84 - Bariatric surgery status Vitamin A Today Z.84 - Bariatric surgery status Vitamin B12 and Folate Today Z98.84 - Bariatric surgery status Complete Blood Count Auto Diff Today Z98.84 - Bariatric surgery status Lipid Panel Today Z98.84 - Bariatric surgery status IRON PROFILE Today Z.84 - Bariatric surgery status Hemoglobin A1c Today Z98.84 - Bariatric surgery status Ferritin Today Z98.84 - Bariatric surgery status Vitamin B1 Today Z98.84 - Bariatric surgery status Zinc Today Z98.84 - Bariatric surgery status Comprehensive Met. Panel Today Z.84 - Bariatric surgery status Insulin Today Z98.84 - Bariatric surgery status
[2025-08-14 10:06] VITALS: BMI 22.5
--- OUTSIDE RECORDS SUMMARY | 2025-08-14 12:39 | XMS_ITS | Clinical Summary ---
Author Organization [facility] Address [address] [place] [address] Care Team Providers Care Pipelines Superintendent Name Role Phone Unavailable Primary Care Provider Unavailabl e Allergies No known active allergies Medications * This document contains information received from the source organization and may not represent a complete record from that organization. No known medications Immunizations Immunization Administration Dates Next Due Influenza,injectable,quad,Prsrv Fr 10/05,08/16/2019,08/22/2018,12/12/19 18 PPV23 (Pneumovax) 04/30/2017 Tdap 12/19/2020 Zoster (Shingrix) [...] PCV) 04/30/2018 04/30/2017 COVID-19 Vaccine ( season) 2025 Influenza (#1) 2025 10/05/2020, 07/25, 08/22/2018, Additional history exists DTaP/Tdap/Td (2 - Td or Tdap) 12/19/2030 12/19/2020 Zoster (Shingrix) Completed 11/13/2020, 09/07/2020 HPV Vaccine (No Doses Required) Completed Hep A Aged Out No longer eligi ble based on patient's age to complete this topic Hib Aged Out No longer eligi ble based on patient's age to complete this topic Meningococcal ACWY Aged Out No longer eligible based on patient's age to complete this topic
--- OUTSIDE RECORDS SUMMARY | 2025-08-14 12:39 | XMS_ITS | Encounter Summary ---
Author Organization [facility] Address [address] [facility] [address] [place] [phone] Phone Care Team Providers Care Production Tester Name Role Phone Jojo Strange LUIS Primary Care Provider + [phone] Encounter Details Date Type Department Care Team (Late st Contact Info) Description 07/17/2025 Prep for Surgery [facility] Orthopedics & Sports Medicine [address] [place] [address] [id number] Leonidas Cam DO [address] [place] [address] Orthopedics & Sports Medicine, [facility] [place] [address] [email or web address] Nontraumatic complete tear of right rotator cuff (Primary Dx) Social History Tobacco Use Types [...] high school, GED, job training, learning the Kyrgyz language, technical skills, or developing parenting skills)? [...] ecorded Denied Basic Needs Not on file 03/23/2025 In the past 12 months have y ou been in a relationship with a person who hurts, threatens, or tries to control you? Deferred 03/23/2025 Worried food would run out Not on file 03/23 In the past 12 months have y ou been in a relationship with a person who hurts, threatens, or tries to control you? Deferred 03/23/2025 Comments No Sex and Gender Information Value Date Recorded Sex Assigned at Female 12/19/2024 5:55 PM EST Legal Sex Female 1:39 PM EDT Gender Identity Female 12/19/2024 5:55 PM EST Sexual Orientation Not on file documented as of this encounter Plan of Treatment Upcoming Encounters Date Type Department Care Team (Late st Contact Info) Description 08/23/2025 10:00 AM EDT Appointment [facility] EKG [address] [place] [address] Leonidas Cam DO [address] [facility] Orthopedics & Sports Medicine, [facility] [place] [address] 09/12/2025 10:20 AM EDT Office Visit [facility] Orthopedics & Sports Medicine [address] [place] [address] [place] [phone] Evelio Sandoval PA-C [address] [place] [address] [place] [address] [email or web address] 10/05/2025 Procedure Pass OR Admitting Dept - Virtual Department [address] [place] [address] 10/05/2025 12:32 PM EST Hospital Encounter OR Admitting Dept - Virtual Department [address] [place] [address] Leonidas Cam, DO 4 [facility] Orthopedics & Sports [facility], [facility] [place] [address] 10/05/2025 12:32 PM EST - 10/05/2025 2:16 PM EST Surgery OR Admitting Dept - Virtual Department [address] [place] [address] Leonidas Cam, DO 4 [facility] Orthopedics & Sports [facility] [place] [address] ARTHROSCOPIC ACROMIOPLASTY ROTATOR CUFF REPAIR SHOULDER 10/17/2025 10:00 AM EST Office Visit [facility] Orthopedics & Sports Medicine [address] [place] [address] [place] [address] Evelio Sandoval PA-C [address] [place] [address] [place] [phone] [email or web address] 11/14/2025 10:00 AM EST Office Visit [facility] Orthopedics & Sports Medicine [address] [place] [address] [place] [address] Leonidas Cam, DO 4 [facility] [address] [email or web address] Scheduled Orders Name Type Priority Associated Diagnoses Orde r Schedule CBC and differential Lab Routine Nontraumatic complete tear of right rotator cuff Expected: 07/17/2025, Expires: 07/17/2026 Basic metabolic panel Lab Routine Nontraumatic complete tear of right rotator cuff Expected: 07/17/2025, Expires: 07/17/2026 Hemoglobin A1c Lab Routine Nontraumatic complete tear of right rotator cuff Expected: 07/17/2025, Expires: 07/17/2026 ECG 12-LEAD ECG Routine Nontraumatic complete tear of right rotator cuff Expected: 07/24/2025, Expires: 07/17/2026 Scheduled Procedures Name Priority Associated Diagnoses Date/Ti me ARTHROSCOPIC ACROMIOPLASTY ROTATOR CUFF REPAIR SHOULDER Nontraumatic complete tear of right rotator cuff 10/05/2025 12:32 PM EST ARTHROSCOPIC TENODESIS BICEPS TENDON Nontraumatic complete tear of right rotator cuff 10/05/2025 12:32 PM EST DECOMPRESSION SUBACROMIAL SHOULDER Nontraumatic complete tear of right rotator cuff 10/05/2025 12:32 PM EST ARTHROSCOPIC DEBRIDEMENT SHOULDER Nontraumatic complete tear of right rotator cuff 10/05/2025 12:32 PM EST documented as of this encounter Visit Diagnoses Diagnosis Nontraumatic complete tear of right rotator cuff- Primary Nontraumatic complete tear of right rotator cuff documented in this encounter Additional Health Concerns Assessment Noted Time PHQ-2 Depression Total Score: 0 03/23/20 7:59 PM EDT documented as of this encounter Care Teams Production Tester Relationship Specialty Start Date End Date Jojo Strange CNP [address] [place] [address], [address] [place] [address] [email or web address] PCP - General Nurse Practitioner 09/28/24 documented as of this encounter Additional Source Comments The information contained in this document represents components of the legal health record. It is not the complete legal health record.[facility]
--- OUTSIDE RECORDS SUMMARY | 2025-08-14 12:39 | XMS_ITS | Clinical Summary ---
Author Organization [facility] Address [address] [facility] [address] [place] [phone] Phone Care Team Providers Care Multi Purpose Machine Operator Name Role Phone Jojo Strange LUIS Primary Care Provider Allergies No known active allergies Medications estradioL (ESTRACE) 2 MG tablet Take 2 mg by mouth daily. 04/13/20 24 Active therapeutic multivitamin tablet Take 1 tablet by mouth daily. Active TURMERIC ORAL Take 500 mg by mouth. 11/08/20 24 Active calcium citrate-vitamin D3 500 mg-12.5 mcg (500 unit) Chew 08/23/20 21 Active creatine, bulk, 100 % Powd by Miscellaneous route. Active Active Problems Problem Noted Date Diagnosed Date Hx of bariatric surgery 09/28/2024 Overview (09/28/2024): 07/2021- Dr. Farah at [facility], gastric sleeve. HTN and hyperlipidemia resolved with weight loss. Assessment & Plan (03/30/2025 10:33 AM EDT): She reports she is feeling very well. Continue to follow with Weight Management, remains on bariatric supplement. They continue to monitor labs. Will continue to monitor. Assessment & Plan (09/28/2024 3:24 PM EST): She reports she is feeling very well. Continue to follow with Weight Management, remains on bariatric supplement. They continue to monitor labs. Will continue to monitor. Chronic right shoulder pain 09/28/2024 Assessment & Plan (03/30/2025 10:33 AM EDT): Pain improved at this time. Working on strengthening exercises at home. She denies new concerns. Scheduled with ortho later this month. Assessment & Plan (09/28/2024 3:25 PM EST): Shannan is experiencing chronic right shoulder pain. Reports no improvement with home exercises or steroid injection. Placed referral to ortho as requested. Vaginal atrophy 09/28/2024 Encounters Date Type Department Care Team Description 07/17/2025 Prep for Surgery [facility] Orthopedics & Sports Medicine [address] [place] [id number] Leonidas Cam, Nontraumatic complete tear of right rotator cuff (Primary Dx) 07/11/2025 9:00 AM EDT Office Visit [facility] Orthopedics & Sports [address] [place] [address] Leonidas Cam DO Nontraumatic complete tear of right rotator cuff (Primary Dx) 06/28/2025 5:43 PM EDT - 06/28/2025 11:59 PM EDT Hospital Encounter [address] [address] Leonidas Cam, DO Discharge Disposition: Home or Self Care 06/06/2025 10:00 AM EDT Office Visit [facility] Orthopedics & Sports [address] [place] [address] Leonidas Cam, Nontraumatic tear of right rotator cuff, unspecified tear extent (Primary Dx) 06/06/2025 9:19 AM EDT - 06/06/2025 11:59 PM EDT Hospital Encounter [facility], X-Ray - [address] [place] [address] Leonidas Cam, DO Discharge Disposition: Home or Self Care 06/06/2025 Procedure Pass [address] [address] from Last 3 Months Immunizations Immunization Administration Dates Next Due INFLUENZA, SPLIT VIRUS, TRIV ALENT W/ PRESERVATIVE IM 09/25/2021 Influenza Quadrivalent Prese rvative Free IM 10/05/2020,10/05/2020,08/16/2019,08/22,12/12/2017 Pneumococcal polysaccharide PPSV23 04/30/2017 Tdap 12/19/2020 Zoster [...] high school, GED, job training, learning the [place]ian language, technical skills, or developing parenting skills)? [...] Sign Reading Time Taken Comments Blood Pressure 96/60 03/30/2025 9:48 AM EDT Pulse 49 03/30/2025 9:48 AM EDT Temperature 36.3 C (97.3 F) 03/30/2025 9:48 AM EDT Respiratory Rate - - Oxygen Saturation 98% 03/30/2025 9:48 AM EDT Inhaled Oxygen Concentration - - Weight 59 kg (130 lb) 06/23/2025 1:50 PM EDT Height 162.6 cm (5' 4 ) 06/23/2025 1:50 PM EDT Body Mass Index 22.31 06/23/2025 1:50 PM EDT Plan of Treatment Upcoming Encounters Date Type Department Care Team (Late st Contact Info) Description 08/23/2025 10:00 AM EDT Appointment [facility] EKG [address] [place] [address] Leonidas Cam DO [address] [place] [address] Orth[facility] [place] [address] 09/12/2025 10:20 AM EDT Office Visit [facility] Orthopedics & Sports Medicine [address] [place] [address] [place] [address] Evelio Sandoval PA-C [address] [place] [address] [place] [address] [email or web address] 10/05/2025 Procedure Pass OR Admitting Dept - Virtual Department [address] [place] [address] 10/05/2025 12:32 PM EST Hospital Encounter OR Admitting Dept - Virtual Department [address] [place] [phone] Leonidas Cam, DO 4 [facility] Orthopedics & Sports [facility] [place] [address] [email or web address] 10/05/2025 12:32 PM EST - 10/05/2025 2:16 PM EST Surgery OR Admitting Dept - Virtual Department [address] [place] [address] Leonidas Cam, DO 4 [facility] Orthopedics Sports [facility] [place] [address] ARTHROSCOPIC ACROMIOPLASTY ROTATOR CUFF REPAIR SHOULDER 10/17/2025 10:00 AM EST Office Visit [facility] Orthopedics & Sports Medicine [address] [place] [address] [place] [address] Evelio Sandoval PA-C [address] [place] [address] [place] [address] [email or web address] 11/14/2025 10:00 AM EST Office Visit [facility] Orthopedics & Sports Medicine [address] [place] [address] [place] [address] eLonidas Cam DO 4 [facility] Orth[facility] [place] [place] [address] Scheduled Procedures Name Priority Associated Diagnoses Date/Ti [...] right rotator cuff 10/05/2025 12:32 PM EST Health Maintenance Due Date Last Done Comments LIPID PANEL 1967 HEPATITIS C SCREENING 1985 HIV ONE-TIME SCREENING (18-65 YEARS) 1985 COLOGUARD 2012 COLONOSCOPY 2012 COLORECTAL CANCER SCREENING 2012 FIT TEST 2012 FOBT 2012 SIGMOIDOSCOPY 2012 VIRTUAL COLONOSCOPY 2012 PNEUMOCOCCAL VACCINES (50+ years) (2 of 2 - PCV) 04/30/2018 04/30/2017 INFLUENZA VACCINE (#1) 2025 , 10/05/2020, 10/05/2020, Additional history exists COVID-19 VACCINE ( - season) 2025 11/30/2021, 07/12/2021 DEPRESSION SCREENING 03/23/2026 03/23/2025 MAMMOGRAM 09/28/2026 09/28/2024 Adult Td,Tdap Booster 12/19/2030 12/19/2020 ZOSTER VACCINES Completed 11/13/2020, 10/24, 09/07/2020 SMOKING STATUS SCREENING (Once After 26 Yrs) Completed 03/30/2025 HEPATITIS A VACCINES Aged Out No long er eligible based on patient's age to complete this topic HIB VACCINES Aged Out No longer eligi ble based on patient's age to complete this topic MENINGOCOCCAL VACCINES (ACWY) Aged Out No longer eligible based on patient's age to complete this topic MENINGOCOCCAL VACCINES (B) Aged Out N o longer eligible based on patient's age to complete this topic Medical Devices Not on file Procedures Procedure Name Priority Date/Time Associated Diagnosis Comments MRI SHOULDER WITHOUT CONTRAST (RIGHT) Routine 06/28/2025 6:20 PM EDT Nontraumatic tear of right rotator cuff, unspecified tear extent XR SHOULDER 2 VIEWS (RIGHT) Routine 06/06/2025 10:02 AM EDT Pain BI MAMMOGRAM SCREENING (BILATERAL) Routine 09/28/2024 10:54 AM EST Screening mammogram for breast cancer from Last 3 Months or Most Recently Relevant to Health Maintenance Results * MRI SHOULDER WITHOUT CONTRAST (RIGHT) (06/28/2025 6:20 PM EDT) Anatomical Region Laterality Modality Shoulder Right Magnetic Resonan ce 07/01/2025 5:14 PM EDT Impressions 07/01/2025 5:18 PM EDT Intra-articular biceps tendinosis with partial-thickness tear. Low-grade, partial thickness articular surface tearing of the supraspinatus tendon. Low-grade, interstitial tear at the infraspinatus tendon insertion. Supraspinatus, infraspinatus and subscapularis tendinosis. Narrative 07/01/2025 5:18 PM EDT MRI SHOULDER WITHOUT CONTRAST (RIGHT) Referring clinician's provided indication for this examination in Epic: * Shoulder pain, rotator cuff disorder suspected, xray done TECHNIQUE: Multi-sequence, multi-planar MRI of the shoulder without intravenous contrast. COMPARISON: XR SHOULDER 2 OR MORE VIEWS (RIGHT) FINDINGS: Coracoacromial Arch: There are moderate acromioclavicular degenerative changes. There is trace subacromial-subdeltoid bursal fluid. Rotator Cuff: There is supraspinatus, infraspinatus and subscapularis tendinosis. There is low-grade, partial thickness articular surface tearing of the supraspinatus tendon with resulting prominence of the rotator cable. There is a low-grade, interstitial tear at the infraspinatus tendon insertion. No focal muscle atrophy. Glenoid Labrum and Biceps Tendon: There is degenerative tearing of the superior labrum. There is intra-articular biceps tendinosis with partial-thickness tearing in the upper bicipital groove. Bones: No fracture, osteonecrosis, or focal lesion. Glenohumeral Joint: No cartilage defect. No joint effusion or synovitis. No capsulitis. Procedure Note Mimi Cobb MD - 07/01/2025 MRI SHOULDER WITHOUT CONTRAST (RIGHT) Referring clinician's provided indication for this examination in Epic: *Shoulder pain, rotator cuff disorder suspected, xray done TECHNIQUE: Multi-sequence, multi-planar MRI of the shoulder withoutintravenous contrast. COMPARISON: XR SHOULDER 2 OR MORE VIEWS (RIGHT) FINDINGS: Coracoacromial Arch: There are moderate acromioclavicular degenerativechanges. There is trace subacromial-subdeltoid bursal fluid. Rotator Cuff: There is supraspinatus, infraspinatus and subscapularistendinosis. There is low-grade, partial thickness articular surfacetearing of the supraspinatus tendon with resulting prominence of therotator cable. There is a low-grade, interstitial tear at theinfraspinatus tendon insertion. No focal muscle atrophy. Glenoid Labrum and Biceps Tendon: There is degenerative tearing of thesuperior labrum. There is intra-articular biceps tendinosis withpartial-thickness tearing in the upper bicipital groove. Bones: No fracture, osteonecrosis, or focal lesion. Glenohumeral Joint: No cartilage defect. No joint effusion or synovitis.No capsulitis. IMPRESSION: Intra-articular biceps tendinosis with partial-thickness tear. Low-grade, partial thickness articular surface tearing of thesupraspinatus tendon. Low-grade, interstitial tear at the infraspinatus tendon insertion. Supraspinatus, infraspinatus and subscapularis tendinosis. us Leonidas Cam DO IMG MR EXTREMITY Final Resu lt * XR SHOULDER 2 VIEWS (RIGHT) (06/06/2025 10:02 AM EDT) Anatomical Region Laterality Modality Shoulder Right Computed Radiogr aphy 06/06/2025 1:51 PM EDT Impressions 06/06/2025 1:52 PM EDT FINDINGS/IMPRESSION: There is no evidence of acute fracture, subluxation, or dislocation. The glenohumeral joint space is preserved. There is minimal marginal osteophytosis of the inferior glenoid rim. There is minimal degenerative change of the acromioclavicular joint. Narrative 06/06/2025 1:52 PM EDT XR SHOULDER 2 OR MORE VIEWS (RIGHT) 06/06/2025 9:37 AM Referring clinician's provided indication for this examination in Epic: Pain COMPARISON: None Procedure Note Ellie Flowers MD - 06/06/2025 XR SHOULDER 2 OR MORE VIEWS (RIGHT) 06/06/2025 9:37 AM Referring clinician's provided indication for this examination in [facility]:Pain COMPARISON: None IMPRESSION: FINDINGS/IMPRESSION: There is no evidence of acute fracture, subluxation, or dislocation. Theglenohumeral joint space is preserved. There is minimal marginalosteophytosis of the inferior glenoid rim. There is minimal degenerativechange of the acromioclavicular joint. Leonidas Cam DO IMG XR UPPER EXTREMITY Jeaneth l Result from Last 3 Months Insurance [facility] [place] [address] [place] [address] [place] [address] [place] [address] [place] [address] [employer] [facility] [employer] DIRECT Care Teams Multi Purpose Machine Operator Relationship Specialty Start Date End Date Jojo Strange CNP [address] [place] [address] [address] [place] [address] [email or web address] PCP - General Nurse Practitioner 09/28/24 Additional Source Comments The information contained in this document represents components of the legal health record. It is not the complete legal health record.[facility]
== END 2025-08-14 10:29 | disposition home or self-care (01) ==
LOC: HO.HBS 10:18
PROVIDERS: PCP Nurse Practitioner Family; Visit Provider Physician Assistant Surgical
DX: Z71.3 Dietary counseling and surveillance (principal); Z90.3 Acquired absence of stomach [part of]; Z98.890 Other specified postprocedural states; Z98.84 Bariatric surgery status
CPT/HCPCS: 98013

== ENCOUNTER 2025-09-09 08:49 | Outpatient (REF) | payer OTHER, SELFPAY ==
--- OUTSIDE RECORDS SUMMARY | 2025-09-09 08:54 | XMS_ITS | Encounter Summary ---
Author Organization [facility] Address [address] [facility] [address] [place] [address] Phone Care Team Providers Care Promotions Specialist Name Role Phone Jojo Strange LUIS Primary Care Provider + [phone] Encounter Details Date Type Department Care Team (Late st Contact Info) Description 07/17/2025 Prep for Surgery [facility] Orthopedics & Sports Medicine [address] [place] [address] [phone] Leonidas Cam DO [address] [place] [address] Orthopedics & Sports Medicine, [facility] [place] [address] [email or web address] Nontraumatic complete tear of right rotator cuff [...] high school, GED, job training, learning the Sudanese language, technical skills, or developing parenting skills)? [...] Care Team (Late st Contact Info) Description 09/12/2025 10:20 AM EDT Office Visit [facility] Orthopedics & Sports Medicine [address] [place] [address] [place] [address] Evelio Sandoval PA-C [address] [place] [address] [place] [phone] [email or web address] 10/04/2025 8:00 AM EST Pre-Admission Testing Pre Procedure Evaluation [address] [place] [address] Leonidas Cam, DO 4 [facility] Orthopedics & Sports [facility] [place] [address] 10/05/2025 Procedure Pass OR Admitting Dept - Virtual Department [address] [place] [address] 10/05/2025 8:30 AM EST Hospital Encounter OR Admitting Dept - Virtual Department [address] [place] [address] Leonidas Cam, DO 4 [facility] Orthopedics Sports [facility] [place] [address] 10/05/2025 8:30 AM EST - 10/05/2025 10:14 AM EST Surgery OR Admitting Dept - Virtual Department [address] [place] [address] Leonidas Cam, DO 4 [facility] Orthopedics & Sports [facility] [place] [address] ARTHROSCOPIC ACROMIOPLASTY ROTATOR CUFF REPAIR SHOULDER 10/17/2025 10:00 AM EST Office Visit [facility] Orthopedics & Sports Medicine [address] [place] [address] [place] [phone] Evelio Sandoval PA-C [address] [place] [address] [place] [phone] [email or web address] 11/14/2025 10:00 AM EST Office Visit [facility] Orthopedics & Sports Medicine [address] [place] [address] [place] [phone] Leonidas Cam, DO [address] [place] [address] [facility] [place] [address] [email or web address] Scheduled Procedures Name Priority Associated Diagnoses Date/Ti me ARTHROSCOPIC ACROMIOPLASTY ROTATOR CUFF REPAIR SHOULDER Nontraumatic complete tear of right rotator cuff 10/05/2025 8:30 AM EST ARTHROSCOPIC TENODESIS BICEPS TENDON Nontraumatic complete tear of right rotator cuff 10/05/2025 8:30 AM EST DECOMPRESSION SUBACROMIAL SHOULDER Nontraumatic complete tear of right rotator cuff 10/05/2025 8:30 AM EST ARTHROSCOPIC DEBRIDEMENT SHOULDER Nontraumatic complete tear of right rotator cuff 10/05/2025 8:30 AM EST documented as of this encounter Results * Hemoglobin A1c (08/23/2025 10:08 AM EDT) HEMOGLOBIN A1C 5.2 4.3 - 5.8 % [facility] Blood 08/23/2025 10:0 8 AM EDT 08/23/2025 10:11 AM EDT us Leonidas Cam DO LAB BLOOD ORDERABLES Final Result Performing Organization Address City/State/[facility] Co de Phone Number [facility] [address] [place] [address] * Basic metabolic panel (08/23/2025 10:08 AM EDT) SODIUM 139 133 - 146 mmol/L [facility] CHLORIDE 104 96 - 108 mmol/L [facility] POTASSIUM 4.3 3.3 - 5.1 mmol/L [facility] CO2 26 21 - 35 mmol/L [facility] BUN 19 6 - 19 mg/dL [facility] CREATININE 0.80 0.5 - 1.5 mg/dL [facility] GLUCOSE 96 70 - 99 mg/dL [facility] CALCIUM 9.4 8.4 - 10.3 mg/dL [facility] EGFR 85 >59 mL/min/1.7 3m2 [facility] Comment:Estimated glomerular filtration rate calculated using the CKD-EPI refit equation. ANION GAP 13 10 - 20 mmol/L [facility] Blood 08/23/2025 10:0 8 AM EDT 08/23/2025 10:11 AM EDT Leonidas Cam LAB BLOOD ORDERABLES Final Result [facility] [address] [place] [address] * (ABNORMAL) CBC and differential (08/23/2025 10:08 AM EDT) WBC 5.37 4.00 - 11.00 K/uL [facility] RBC 4.48 4.00 - 5.20 M/uL [facility] HGB 14.0 12.0 - 16.0 g/dL [facility] HCT 42.3 36.0 - 46.0 % [facility] PLT 228 150 - 450 K/uL [facility] MCV 94.4 80.0 - 100.0 fL [facility] MCH 31.3(H) 27.0 - 31.0 pg [facility] MCHC 33.1 32.0 - 36.0 g/dL [facility] RDW 11.9 11.5 - 14.5 % [facility] MPV 10.6 8.4 - 12.0 fL [facility] NRBC 0.00 0.00 /100 WBCs [facility] ABSOLUTE NRBC 0.00 0.00 K/uL [facility] DIFF METHOD Auto [facility] NEUTS 53.8 48.0 - 76.0 % [facility] LYMPHS 35.8 18.0 - 41.0 % [facility] MONOS 7.8 4.0 - 11.0 % [facility] EOS 1.3 0.0 - 5.0 % [facility] BASOS 1.1 0.0 - 1.5 % [facility] Granulocytes, immature (%) 0.2 0.0 - 0.9 % [facility] ABSOLUTE NEUTS 2.89 1.92 - 7.60 K/uL [facility] ABSOLUTE LYMPHS 1.92 0.72 - 4.10 K/uL [facility] ABSOLUTE MONOS 0.42 0.16 - 1.10 K/uL [facility] ABSOLUTE EOS 0.07 0.00 - 0.50 K/uL [facility] ABSOLUTE BASOS 0.06 0.00 - 0.15 K/uL [facility] Granulocytes, immature 0.01 0.00 - 0.09 K/uL [facility] Blood 08/23/2025 10:0 8 AM EDT 08/23/2025 10:11 AM EDT us [facility] LAB BLOOD ORDERABLES Final Result Performing Organization Address City/[facility] Co de Phone Number [facility] [address] [place] [address] * ECG 12-LEAD (08/23/2025 9:56 AM EDT) Ventricular Rate EKG/MIN 43 BPM [facility] Atrial Rate 43 BPM [facility] VA Interval 178 ms [facility] QRS Duration 82 ms [facility] QT Interval 442 ms [facility] QTC Interval 373 ms [facility] P [place] 64 degrees [facility] R Wave [place] 0 degrees [facility] T Wave [place] 44 degrees [facility] 08/23/2025 9:56 AM EDT 08/24/2025 7:42 AM EDT Narrative [facility] - 08/24/2025 7:43 AM EDT Marked sinus bradycardia Abnormal ECG No previous ECGs available Confirmed by Alber Shah ([id number]) on 08/24/2025 7:42:58 AM [facility] ORDER[facility] Final Resul t [facility] documented in this encounter Visit Diagnoses Diagnosis Nontraumatic complete tear of right rotator cuff- Primary Nontraumatic complete tear of right rotator cuff Nontraumatic complete tear of right rotator cuff documented in this encounter Additional Health Concerns Assessment Noted Time PHQ-2 Depression Total Score: 0 03/23/20 25 7:59 PM EDT documented as of this encounter Care Teams Promotions Specialist Relationship Specialty Start Date End Date Jojo Strange CNP [address] [place] [address], [address] [place] [address] [email or web address] PCP - General Nurse Practitioner 09/28/24 documented as of this encounter Additional Source Comments The information contained in this document represents components of the legal health record. It is not the complete legal health record.[facility]
--- OUTSIDE RECORDS SUMMARY | 2025-09-09 08:54 | XMS_ITS | Encounter Summary ---
Author Organization [facility] Address [address] [facility] [address] [place] [address] Phone Care Team Providers Care Nephrology Social Worker Name Role Phone Jojo Strange LUIS Primary Care Provider + [phone] Encounter Details Date Type Department Care Team (Late st Contact Info) Description 06/06/2025 Procedure Pass [facility], [address] [address] Social History Tobacco Use Types Packs/Day Years [...] high school, GED, job training, learning the Chilean language, technical skills, or developing parenting skills)? [...] Description 09/12/2025 10:20 AM EDT Office Visit [facility] Orthopedics & Sports Medicine [address] [place] [address] [place] [address] Evelio Sandoval PA-C [address] [place] [address] [place] [phone] [email or web address] 10/04/2025 8:00 AM EST Pre-Admission Testing Pre Procedure Evaluation [address] [place] [address] Leonidas Cam DO [address] [facility] [place] [address] 10/05/2025 Procedure Pass [place] Admitting Dept - Virtual Department [address] [place] [address] 10/05/2025 8:30 AM EST Hospital Encounter OR Admitting Dept - Virtual Department [address] [place] [address] Leonidas Cam, 4 [facility], [place] [address] 10/05/2025 8:30 AM EST - 10/05/2025 10:14 AM EST Surgery OR Admitting Dept - Virtual Department [address] [place] [address] Leonidas Cam, 4 [facility] Orthopedics Sports [facility], [place] [address] ARTHROSCOPIC ACROMIOPLASTY ROTATOR CUFF REPAIR SHOULDER 10/17/2025 10:00 AM EST Office Visit [facility] Orthopedics & Sports Medicine [address] [place] [address] [place] [address] Evelio Sandoval PA-C [address] [place] [address] [place] [phone] [email or web address] 11/14/2025 10:00 AM EST Office Visit [facility] Orthopedics & Sports Medicine [address] [place] [address] [place] [address] Leonidas Cam DO 4 [facility], [facility] [place] [address] Scheduled Procedures Name Priority Associated Diagnoses Date/Ti [...] AM EST documented as of this encounter Visit Diagnoses Not on filedocumented in this encounter Additional Health Concerns Assessment Noted Time PHQ-2 Depression Total Score: 0 03/23/20 7:59 PM EDT documented as of this encounter Care Teams Nephrology Social Worker Relationship Specialty Start Date End Date Jojo Strange CNP [address] [place] [address] 7 [place] [address] [email or web address] PCP - General Nurse Practitioner 09/28/24 documented as of this encounter Additional Source Comments The information contained in this document represents components of the legal health record. It is not the complete legal health record.[facility]
--- OUTSIDE RECORDS SUMMARY | 2025-09-09 08:54 | XMS_ITS | Clinical Summary ---
Author Organization [facility] Address [address] [facility] [place] [address] Care Team Providers Care Cable Engineer Outside Plant Name Role Phone Beau Feldman MD Primary [...] 93 05/07/2021 9:45 AM EDT Temperature 36.7 C (98.1 F) 05/07/2021 9:45 AM EDT Respiratory Rate 12 08/28/2018 9:19 AM EDT [...] Adults 18 yrs or above (or HM Modifier)([facility]) 1985 Hepatitis C Virus Infection in Adolescents and Adults: Screening (or Modifier) ([facility]) 1985 SDOH Screening Reminder: Leigh Ann garcias for all adults ([facility]) 1985 Tobacco Smoking Cessation: i n Adults excluding Women: Behavioral and Pharmacotherapy Interventions ([facility]) 1985 DTaP/Tdap/Td Vaccines ([facility]) (1 - Tdap) 1986 Cervical Cancer Screenin 1-65 yrs of age (or Modifier) 1988 Cervical Cancer Screening: P ap every 3 yrs pts age 21-65 1988 Cervical Cancer: Pap Screeni ng with Modifier timing ([facility]) 1988 Cervical Cancer: hrHPV alone or with cotesting Pap for Pts 30-65yrs screening every 5yrs ([facility]) 1988 Colorectal Cancer Screening 45 -75 Yrs (or HM Modifier ) 2012 Colorectal Cancer: FLEXIBLE SIGMOIDOSCOPY Screening every 5 yrs 2012 Colorectal Cancer: Fecal Imm unochemical Test (FIT) Annually [facility] 2012 Colorectal Cancer: High-sens itivity gFOBT Screening Annually [facility] 2012 Colorectal Cancer: Stool Col oguard Screening every 3 yrs 2012 Colorectal Cancer:CT Colonography Screening every 5 yr s 2012 Breast Cancer: Screening Leigh Ann katerine age 50-74 yrs (or HM Modifier)([facility]) 2017 Pneumococcal Vaccination Scr eening: Patients 50+ yrs of age ([facility]) (1 of 1 - PCV) 2017 Zoster/Shingles Vaccine Seri es Screening: Adults aged 18+ yrs (or HM Modifiers)([facility]) (1 of 2) 2017 Flu Vaccination: Yearly for ages 18mos through 64 years (or Modifier)([facility]) 06/23/2025 COVID-19 Vaccine Screening: Initial Series and Booster Status ([facility]) ( - 2023- season) 2025 Medical Devices Not on file Insurance [facility] [address] [facility] Care Teams Cable Engineer Outside Plant Relationship Specialty Start Date End Date Beau Feldman MD [address] [place] [phone] PCP - Retail Consultant 02/06/17
--- OUTSIDE RECORDS SUMMARY | 2025-09-09 08:54 | XMS_ITS | Clinical Summary ---
Author Organization [facility] Address [address] [place] [address] Care Team Providers Care Structural Steel Worker Helper Name Role Phone Unavailable Primary Care Provider [...]
--- OUTSIDE RECORDS SUMMARY | 2025-09-09 08:54 | XMS_ITS | Clinical Summary ---
Author Organization [facility] Address [address] [facility] [address] [place] [address] Phone Care Team Providers Care Production Posting Clerk Name Role Phone Jojo Strange LUIS Primary Care Provider [phone] Allergies No known active allergies Medications estradioL [...] 09/28/2024 Overview (09/28/2024): 07[place]2021- [place] [facility] [place] HTN and [...] Encounters Date Type Department Care Team Description 08/23/2025 10:02 AM EDT - 08/23/2025 11:59 PM EDT Hospital Encounter [facility] [address] [place] [address] Leonidas Cam, DO Discharge Disposition: Home or Self Care 08/23/2025 9:47 AM EDT - 08/23/2025 10:01 AM EDT Hospital Encounter [facility] [address] [place] [address] Leonidas Cam, DO Discharge Disposition: Home or Self Care 07/17/2025 Prep for Surgery [facility] Orthopedics & Sports Medicine [address] [place] [address] Leonidas Cam, Nontraumatic complete tear of right rotator cuff (Primary Dx) 07/11/2025 9:00 AM EDT Office Visit [facility] Orthopedics & Sports Medicine [address] [place] [address] [place] [address] Leonidas Cam, Nontraumatic complete tear of right rotator cuff (Primary Dx) 06/28/2025 5:43 PM EDT - 06/28/2025 11:59 PM EDT Hospital Encounter [address] [address] Leonidas Cam, DO Discharge Disposition: Home or Self Care 06/06/2025 Procedure Pass [address] [address] from Last 3 Months Immunizations Immunization Administration [...] high school, GED, job training, learning the Russian language, technical skills, or developing parenting skills)? [...] have reliable internet access at home? Ye carmen 09/28/2024 Do you have a device (e.g., [...] 09/12/2025 10:20 AM EDT Office Visit [facility] Orthopedics & Sports Medicine [address] [place] [address] [place] [address] Evelio Sandoval PA-C [address] [place] [address] [place] [address] [email or web address] 10/04/2025 8:00 AM EST Pre-Admission Testing Pre Procedure Evaluation [address] [place] [address] Leonidas Cam, DO 4 [facility] Orthopedics & Sports [facility] [place] [address] 10/05/2025 Procedure Pass OR Admitting Dept - Virtual Department [address] [place] [address] 10/05/2025 8:30 AM EST Hospital Encounter OR Admitting Dept - Virtual Department [address] [place] [address] Leonidas Cam, DO 4 [facility] Orthopedics Sports [facility] [place] [address] 10/05/2025 8:30 AM EST - 10/05/2025 10:14 AM EST Surgery OR Admitting Dept - Virtual Department [address] [place] [address] Leonidas Cam, DO 4 [facility] Orthopedics & Sports [facility] [place] [address] ARTHROSCOPIC ACROMIOPLASTY ROTATOR CUFF REPAIR SHOULDER 10/17/2025 10:00 AM EST Office Visit [facility] Orthopedics & Sports Medicine [address] [place] [address] [place] [address] Evelio Sandoval PA-C [address] [place] [address] [place] [address] [email or web address] 11/14/2025 10:00 AM EST Office Visit [facility] Orthopedics & Sports Medicine [address] [place] [address] [place] [address] Leonidas Cam, DO 4 [facility] Orthopedics & Sports [facility] [place] [address] Scheduled Procedures Name Priority Associated Diagnoses Date/Ti [...] right rotator cuff 10/05/2025 8:30 AM EST Health Maintenance Due Date Last Done Comments LIPID PANEL 1967 HEPATITIS C SCREENING 1985 HIV ONE-TIME SCREENING (18-65 YEARS) 1985 COLOGUARD 2012 COLONOSCOPY 2012 COLORECTAL CANCER SCREENING 2012 FIT TEST 2012 FOBT 2012 SIGMOIDOSCOPY 2012 VIRTUAL COLONOSCOPY 2012 PNEUMOCOCCAL VACCINES (50+ years) (2 of 2 - PCV) 04/30/2018 04/30/2017 INFLUENZA VACCINE (#1) 2025 , 10/05/2020, 10/05/2020, Additional history exists COVID-19 VACCINE (3 - 2024- season) 2025 11/30/2021, 07/12/2021 DEPRESSION SCREENING 03/23/2026 03/23/2025 MAMMOGRAM 09/28/2026 09/28/2024 Adult Td,Tdap Booster 12/19/2030 12/19/2020 RSV VACCINE (1 - 1-dose 75+ series) 2042 ZOSTER VACCINES Completed 11/13/2020, 10/24, 09/07/2020 SMOKING [...] Procedure Name Priority Date/Time Associated Diagnosis Comments CBC AND DIFFERENTIAL Routine 08/23/2025 10:08 AM EDT Nontraumatic complete tear of right rotator cuff BASIC METABOLIC PANEL Routine 08/23/2025 10:08 AM EDT Nontraumatic complete tear of right rotator cuff HEMOGLOBIN A1C Routine 08/23/2025 10:08 AM EDT Nontraumatic complete tear of right rotator cuff ECG 12-LEAD Routine 08/23/2025 9:56 AM EDT Nontraumatic complete tear of right rotator cuff MRI SHOULDER WITHOUT CONTRAST (RIGHT) Routine 06/28/2025 6:20 PM EDT Nontraumatic tear of right rotator cuff, unspecified tear extent BI MAMMOGRAM SCREENING (BILATERAL) Routine 09/28/2024 10:54 AM EST Screening mammogram for breast cancer from Last 3 Months or Most Recently Relevant to Health Maintenance Results * (ABNORMAL) CBC and differential (08/23/2025 10:08 AM EDT) WBC 5.37 4.00 - 11.00 K/uL [facility] RBC 4.48 4.00 - 5.20 M/uL [facility] HGB 14.0 12.0 - 16.0 g/dL [facility] HCT 42.3 36.0 - 46.0 % [facility] PLT 228 150 - 450 K/uL [facility] MCV 94.4 80.0 - 100.0 fL [facility] MCH 31.3(H) 27.0 - 31.0 pg [facility] MCHC 33.1 32.0 - 36.0 g/dL [facility] RDW 11.9 11.5 - 14.5 % [facility] MPV 10.6 8.4 - 12.0 fL [facility] NRBC 0.00 0.00 /100 WBCs [facility] ABSOLUTE NRBC 0.00 0.00 K/uL [facility] DIFF METHOD Auto [facility] NEUTS 53.8 48.0 - 76.0 % [facility] LYMPHS 35.8 18.0 - 41.0 % [facility] MONOS 7.8 4.0 - 11.0 % [facility] EOS 1.3 0.0 - 5.0 % [facility] BASOS 1.1 0.0 - 1.5 % [facility] Granulocytes, immature (%) 0.2 0.0 - 0.9 % [facility] ABSOLUTE NEUTS 2.89 1.92 - 7.60 K/uL [facility] ABSOLUTE LYMPHS 1.92 0.72 - 4.10 K/uL [facility] ABSOLUTE MONOS 0.42 0.16 - 1.10 K/uL [facility] ABSOLUTE EOS 0.07 0.00 - 0.50 K/uL [facility] ABSOLUTE BASOS 0.06 0.00 - 0.15 K/uL [facility] Granulocytes, immature 0.01 0.00 - 0.09 K/uL [facility] Blood 08/23/2025 10:0 8 AM EDT 08/23/2025 10:11 AM EDT [facility] Final Result Performing Organization Address City/[facility]/ZIP Co de Phone Number [address] [address] * Hemoglobin A1c (08/23/2025 10:08 AM EDT) HEMOGLOBIN A1C 5.2 4.3 - 5.8 % [facility] Blood 08/23/2025 10:0 8 AM EDT 08/23/2025 10:11 AM EDT [facility] LAB BLOOD ORDERABLES Final Result [address] [address] * Basic metabolic panel (08/23/2025 10:08 AM EDT) SODIUM 139 133 - 146 mmol/L [facility] CHLORIDE 104 96 - 108 mmol/L [facility] POTASSIUM 4.3 3.3 - 5.1 mmol/L [facility] CO2 26 21 - 35 mmol/L [facility] BUN 19 6 - 19 mg/dL [facility] CREATININE 0.80 0.5 - 1.5 mg/dL [facility] GLUCOSE 96 70 - 99 mg/dL [facility] CALCIUM 9.4 8.4 - 10.3 mg/dL [facility] EGFR 85 >59 mL/min/1.7 3m2 [facility] Comment:Estimated glomerular filtration rate calculated using the CKD-EPI refit equation. ANION GAP 13 10 - 20 mmol/L [facility] Blood 08/23/2025 10:0 8 AM EDT 08/23/2025 10:11 AM EDT us Leonidas Cam DO LAB BLOOD ORDERABLES Final Result Performing Organization Address City/[facility] Co de Phone Number [address] [address] * ECG 12-LEAD (08/23/2025 9:56 AM EDT) Ventricular Rate EKG/MIN 43 BPM [facility] Atrial Rate 43 BPM [facility] MO Interval 178 ms [facility] QRS Duration 82 ms [facility] QT Interval 442 ms [facility] QTC Interval 373 ms [facility] P [place] 64 degrees [facility] R Wave [place] 0 degrees [facility] T Wave [place] 44 degrees [facility] 08/23/2025 9:56 AM EDT 08/24/2025 7:42 AM EDT Narrative [facility] - 08/24/2025 7:43 AM EDT Marked sinus bradycardia Abnormal ECG No previous ECGs available Confirmed by Alber Shah ([id number]) on 08/24/2025 7:42:58 AM Leonidas Cam DO ECG ORDERABLES Final Resul t Performing Organization Address City/[facility]/ZIP Co de Phone Number [facility] * MRI SHOULDER WITHOUT CONTRAST (RIGHT) (06/28/2025 [...] clinician's provided indication for this examination in [facility]: * Shoulder pain, rotator cuff disorder suspected, [...] clinician's provided indication for this examination in [facility]: *Shoulder pain, rotator cuff disorder suspected, xray [...] tendon insertion. Supraspinatus, infraspinatus and subscapularis tendinosis. Leonidas Cam DO IMG MR EXTREMITY Final Resu lt from Last 3 Months [facility] [place] [address] [address] CONNECTORCARE DIRECT CONNECTORCARE DIRECT CONNE[employer]ARE DIRECT CONNECTORCARE DIRECT [facility] CONNECTORCARE DIRECT Care Teams Production Posting Clerk Relationship Specialty Start Date End Date Jojo Strange CNP [address] [place] [address], [address] [place], [place] [id number] [email or web address] PCP - General Nurse Practitioner 09/28/24 Additional Source Comments The information contained in this document represents components of the legal health record. It is not the complete legal health record.[facility]
[2025-09-09 09:38] LABS: MANUAL DIFF FLAG NO
[2025-09-09 10:05] LABS: Hematocrit 41.8 % (37.0-47.0); Hemoglobin 13.9 g/dl (12.0-16.0); Imm Gran Abs Auto 0.01 X10*3/uL (0.00-0.03); Imm Gran Pct Auto 0.2 % (0.0-0.4); Lymphocytes Absolute Auto 2.3 X10*3/uL (1.2-4.9); Mean Corpuscular HGB Conc 33.3 g/dl (31.0-35.0); Mean Corpuscular Hemoglobin 30.5 pg (27.0-33.0); Mean Corpuscular Volume 91.7 fL (80.0-98.0); NRBC Abs Auto 0.000 X10*3/uL (0.0-0.012); NRBC Pct Auto 0.0 /100WBC (0.0-0.2); Platelet Count 221 X10*3/uL (160-400); Red Blood Count 4.56 X10*6/uL (4.20-5.50); White Blood Count 5.5 X10*3/uL (4.8-10.8)
[2025-09-09 10:47] LABS: Alanine Aminotransferase 27 U/L (0-31); Albumin Level 4.3 g/dL (3.5-5.0); Alkaline Phosphatase 76 U/L (39-117); Anion Gap 15 (12-20); Aspartate Amino Transferase 29 U/L (5-31); Blood Urea Nitrogen 16 mg/dL (9-16); Calcium 9.5 mg/dL (8.4-10.2); Carbon Dioxide 26 mmol/L (22-29); Chloride 107 mmol/L (96-108); Cholesterol 199 mg/dL (<200); Estimated Glomerular Filt Rate > 60; HDL Cholesterol 67 mg/dL (>40); Iron 133 mcg/dL (30-160); Percent Iron Saturation 47 % (15-50); Potassium 4.6 mmol/L (3.3-5.1); Sodium 143 mmol/L (135-145); Total Iron Binding Capacity 283 mcg/dL (228-428); Total Protein 7.2 g/dL (6.5-8.0); Triglycerides 72 mg/dL (<150); Unsaturated Iron Binding 150 ug/dL
[2025-09-09 11:10] LABS: Ferritin 149 ng/mL (10-250)
[2025-09-09 11:25] LABS: Folate 11.2 ng/mL (> or = 4.0); Vitamin B12 1205 pg/mL (200-900)
== END 2025-09-09 08:50 | disposition home or self-care (01) ==
LOC: HO.LAB 08:49
PROVIDERS: PCP Nurse Practitioner Family; Visit Provider Physician Assistant Surgical
DX: Z98.84 Bariatric surgery status (principal)
CPT/HCPCS: 36415; 80053; 80061; 82306; 82607; 82728; 82746; 83036; 83525; 83540; 84425; 84443; 84590; 84630; 85025; 86140